=== PATIENT | male | born 1975 | race Caucasian/White ===

== ENCOUNTER 2016-07-25 03:53 | Observation (INO) | payer OTHER ==
[2016-07-25] MEDS ORDERED: ONDANSETRON 4 MG/2 ML VIAL IVP STA (04:13)
[2016-07-25] MEDS ORDERED: SODIUM CHLORIDE 0.9% 1,000 ML IV STA (04:13)
[2016-07-25] MEDS ORDERED: NITROGLYCERIN OINT 1 INCH/GM PACKET TOPICAL STA (04:13)
--- NOTE | 2016-07-25 04:26 | ED ---
Chest Pain HPI - General Chief Complaint: Chest Pain Stated Complaint: Chest Pain Time Seen by Provider: 07/25/16 04:01 Source: patient, EMS Mode of arrival: EMS Limitations: no limitations - History of Present Illness Initial Comments: Chest pain and shortness of breath since 11 PM that's about 5 hours ago also felt with the shoulders were heavy and he felt the legs were weak and chest pain is off-and-on pain gets worse with a deep breaths he wasn't exerting himself exactly where he was at work and his work does include walking. This point denies any headaches no neck stiffness no abdominal pain no frequency urgency dysuria pain has gotten better at this point actually is pain-free - Related Data Home Medications Medication Instructions Recorded Confirmed Fenofibrate Nanocrystallized 145 mg PO HS 04/14/14 07/25/16 [Tricor] Insulin NPL/Insulin Lispro 32 unit SQ DAILY 04/14/14 07/25/16 [humaLOG Mix 75-25 Kwikpen] Insulin NPL/Insulin Lispro 42 unit SQ HS 04/14/14 07/25/16 [humaLOG Mix 75-25 Kwikpen] Lipase/Protease/Amylase [Creon Dr 1 cap PO AC-BID 04/30/14 07/25/16 6,000 Units Capsule] Losartan Potassium [Cozaar] 100 mg PO DAILY 12/14/14 07/25/16 Aspirin/Acetaminophen/Caffeine 4 tab PO TID PRN 07/27/15 07/25/16 [Excedrin Extra Strength Caplet] Allergies Allergy/AdvReac Type Severity Reaction Status Date / Time shellfish derived Allergy Severe Anaphylaxis Verified 03/08/16 09:59 hydrocodone bitartrate AdvReac Rash/Hives Verified 03/08/16 09:59 [From [place]] Review of Systems ROS Statement: Those systems with pertinent positive or pertinent negative responses have been documented in the HPI. ROS Other: All systems not noted in ROS Statement are negative. EKG Findings - EKG Comments: EKG Findings:: EKG was normal sinus rhythm medical rate is 80 SC interval is 152 QRS duration is 88 QT/QTc is 392/4 5250 mL EKG showed some ST depression in leads [address] elevation or ST depression noticed in any other leads Past Medical History Past Medical History: Diabetes Mellitus, Hyperlipidemia, Hypertension Additional Past Medical History / Comment(s): pancreatitis, diverticulitis, migraines, high triglycerides; patient states he has a stricture in the esophagus that prevents him from swallowing large amounts at a time History of Any Multi-Drug Resistant Organisms: None Reported Past Surgical History: No Surgical Hx Reported Additional Past Surgical History / Comment(s): FAILED ATTEMPT AT EGD DUE INABILTY TO PASS SCOPE. COLONSCOPY 4 years ago- CLEAR. Past Anesthesia/Blood Transfusion Reactions: No Reported Reaction Past Psychological History: No Psychological Hx Reported Smoking Status: Current every day smoker Past Alcohol Use History: None Reported Additional Past Alcohol Use History / Comment(s): STARTED SMOKING AT AGE 11, SMOKED 1PPD. AGE 20 WAS HEAVY DRINKER X4 YEARS THEN QUIT. Past Drug Use History: None Reported Additional Drug Use History / Comment(s): TEENAGER SMOKED MARIJUANA NONE NOW. - Past Family History Father Family Medical History: Cancer, Diabetes Mellitus, Hyperlipidemia, Hypertension , Myocardial Infarction ([place]) Additional Family Medical History / Comment(s): SMOKER- HAS CANCER OF LARNYX, AT AGE 58 Mother Family Medical History: Diabetes Mellitus, Dialysis, Hyperlipidemia, Hypertension, Renal Disease General Exam - General Exam Comments Initial Comments: General: The patient is awake and alert, in no distress, and does not appear acutely ill. He looks pale and tired, GCS is 15 Skin: Skin is warm and dry and no rashes or lesions are noted. Eye: Pupils are equal, round and reactive to light, extra-ocular movements are intact; there is normal conjunctiva bilaterally. Ears, nose, mouth and throat: There are moist mucous membranes and no oral lesions. Neck: The neck is supple, there is no tenderness or JVD. Cardiovascular: There is a regular rate and rhythm. No murmur, rub or gallop is appreciated. Respiratory: To auscultation bilateral, exam is consistent with a moderate COPD Gastrointestinal: Soft, non-distended, non-tender abdomen without masses or organomegaly noted. There is no rebound or guarding present. Bowel sounds are unremarkable. Back: There is no tenderness to palpation in the midline. There is no obvious deformity. Musculoskeletal: Normal ROM, no tenderness, There is no pedal edema. There is no calf tenderness or swelling. No cords were appreciated. Neurological: CN II-XII intact, Cranial nerves III through XII are intact. There are no obvious motor or sensory deficits. Coordination appears grossly intact. Speech is normal. Psychiatric: Cooperative, appropriate mood & affect, normal judgment. Limitations: no limitations Course Vital Signs 07/25/16 07/25/16 07/25/16 03:55 04:01 04:30 Temperature 98.4 F Pulse Rate 79 76 68 Respiratory 18 16 16 Rate Blood Pressure 136/85 146/80 144/81 O2 Sat by Pulse 99 99 99 Oximetry 07/25/16 07/25/16 06:00 07:00 Temperature Pulse Rate 67 76 Respiratory 16 16 Rate Blood Pressure 129/81 136/68 O2 Sat by Pulse 99 97 Oximetry Vision was reassessed at 7:15, his CBC, his d-dimer, troponin, compressive metabolic panel were all negative chest x-ray shows some lung congestion and his CO2 was slightly low 19, these were on explained to the patient patient's chest pain has resolved but considering his risk factors he would need to come in and he agrees with that and now leg get older Dr. Larose and will consult cardiology though his pain resolved after he had a nitro and aspirin or heparinize him a considering he has smoked for greater than 20 years Disposition Clinical Impression: Chest pain Disposition: ADMITTED IP TO THIS [facility] Condition: Good
[2016-07-25 04:33] LABS: Basophils # (A) 0.1 k/uL (0-0.2); Basophils % (A) 1 %; CH 30.7; CHCM 35.8; Eosinophils # (A) 0.6 k/uL (0-0.7); Eosinophils % (A) 7 %; HCT 38.8 % (39.0-53.0); HDW 3.02; HGB 14.2 gm/dL (13.0-17.5); Luc # (Auto) 0.35; Luc % (Auto) 4; Lymphocytes # (A) 2.7 k/uL (1.0-4.8); Lymphocytes % (A) 29 %; MCH 31.5 pg (25.0-35.0); MCHC 36.6 g/dL (31.0-37.0); MCV 86.1 fL (80.0-100.0); Mean Platelet Volume 7.2; Monocytes # (A) 0.3 k/uL (0-1.0); Monocytes % (A) 3 %; Neutrophils # (A) 5.4 k/uL (1.3-7.7); Neutrophils % (A) 57 %; RBC 4.51 m/uL (4.30-5.90); RDW 13.7 % (11.5-15.5); WBC 9.5 k/uL (3.8-10.6); WBC (Perox) 9.95
[2016-07-25 04:44] LABS: ALT 26 U/L (21-72); AST 19 U/L (17-59); Alkaline Phosphatase 76 U/L (38-126); Amylase 82 U/L (30-110); Anion Gap 11 mmol/L; Blood Urea Nitrogen 11 mg/dL (9-20); Calcium 9.1 mg/dL (8.4-10.2); Carbon Dioxide 19 mmol/L (22-30); Chloride 110 mmol/L (98-107); Glucose 175 mg/dL (74-99); Magnesium 1.5 mg/dL (1.6-2.3); Non-African American GFR(MDRD) >60 (>60 ml/min/1.73 sqM); Sodium 140 mmol/L (137-145); Total Bilirubin 0.4 mg/dL (0.2-1.3); Total Protein 6.8 g/dL (6.3-8.2)
--- NOTE | 2016-07-25 04:52 | XR ---
Exam: XR CXR 2 VIEWS History: Chest pain. Comparison: 08/21/15. Technique: 2 views. Findings: No focal consolidation or significant effusion. There is mild prominence of the pulmonary vessels bilaterally. Heart shadow is top normal in transverse dimension. Impression: No consolidation or effusion. Suggestion of mild volume overload/congestion.
[2016-07-25 05:00] LABS: Partial Thromboplastin Time 23.9 sec (22.0-30.0); Prothrombin Time 9.9 sec (9.0-12.0)
[2016-07-25 05:15] LABS: Creatine Kinase 102 U/L (55-170)
[2016-07-25 05:27] LABS: Creatine Kinase MB 0.7 ng/mL (0.0-2.4); Troponin I <0.012 ng/mL (0.000-0.034)
[2016-07-25] MEDS ORDERED: HEPARIN SODIUM,PORCINE 5,000 UNIT/ML 1 ML VIAL IV ONE (07:38)
[2016-07-25] MEDS ORDERED: NITROGLYCERIN SL TABS 0.4 MG TAB SUBLINGUAL PRN (07:38)
[2016-07-25] MEDS ORDERED: ASPIRIN-ACET-CAFF 250-250-65MG 1 EACH TAB PO PRN (07:43)
[2016-07-25] MEDS ORDERED: HEPARIN SODIUM,PORCINE/D5W PMX 25,000 UNIT in DEXTROSE/WATER 1 500ML.BAG IV SCH (07:45)
[2016-07-25 07:57] VITALS: RESP 18
[2016-07-25] MEDS ORDERED: LOSARTAN 50 MG TAB PO SCH (09:00)
[2016-07-25] MEDS ORDERED: INSULIN NPL/INSULIN LISPRO 100 UNIT/ML 10 ML VIAL (Humalog 75/25) SQ SCH ×2 (09:00→21:00)
[2016-07-25 10:19] LABS: Creatine Kinase 81 U/L (55-170)
[2016-07-25 10:32] LABS: Creatine Kinase MB 0.8 ng/mL (0.0-2.4); Troponin I <0.012 ng/mL (0.000-0.034)
[2016-07-25 11:37] VITALS: BP 127/85; PULSE 70; TEMP 97.7
--- NOTE | 2016-07-25 11:59 | CONS ---
DATE OF CONSULTATION: REASON FOR CONSULTATION: Cardiac evaluation and treatment. HISTORY OF PRESENT ILLNESS: Mr. Luigi Leon is a poor historian and works midnights, that may be possible that patient is sleeping unable to get information: Patient had an episode of high back, high thoracic and low thoracic and lumbar pain, lasted for several hours and subsided then around 11 p.m. started having pain in the chest, heaviness and described a shooting pain on and off while he was at work and without getting any worse with exertion. Patient is reasonably active, but patient is a diabetic and denied any classical anginal symptoms other than atypical chest pains. Patient is a diabetic and has been taking insulin for last 2-1/2 years. Patient is also a heavy smoker, started smoking at 11 and continues to smoke 1 pack of cigarettes a day, quit drinking 4 years ago. He used to drink heavy before that. Patient has a girlfriend but not . Troponin x2 are negative. EKGs within normal limits. D-dimer is within normal limits. Patient's medications prior to admission include fenofibrate 145 mg p.o. daily, insulin lispro 32 units subcu daily, insulin lispro 42 units at bedtime, lipase 1 capsule a.c. b.i.d., losartan 100 mg p.o. daily, aspirin ( ), aspirin with acetaminophen, Excedrin, 4 tablets t.i.d. p.r.n. Patient is allergic to SHELL FISH, HYDROCODONE BITARTRATE, NORCO. REVIEW OF SYSTEMS: Essentially unremarkable other than what is stated in the presenting illness. History of diabetes. History of hyperlipidemia, hypertension. History of pancreatitis. History of esophageal stricture with difficulties in swallowing large amounts at one time. Difficulties in passing a scope in the past. History of as a teenager might have used marijuana, not using any marijuana now. Family history of coronary artery disease. Review of systems is essentially unremarkable other than what is stated in the presenting illness. Physical examination reveals vital signs are stable with a pulse rate of 67 beats per minute and regular, blood pressure 129/81, respirations of 16. HEAD: Normocephalic. NECK: Neck is supple. No JVD. CARDIAC EXAMINATION: S1 and S2. Lungs are clinically to auscultation and percussion other than scattered rhonchi. ABDOMEN: Soft, no organomegaly. Active bowel sounds. EXTREMITIES: Fair peripheral pulses. No pedal edema. RAG SORTER EXAMINATION: Grossly within normal limits. EKG revealed normal sinus rhythm, normal ST-T waves. Troponin x2 are negative. ASSESSMENT: 1. Atypical chest pain, rule out underlying ischemic heart disease with strong family history of coronary artery disease. 2. Current smoker. 3. Hypertension. 4. Hyperlipidemia. 5. Diabetes mellitus. RECOMMENDATIONS: Proceed with a stress echocardiogram. If normal, patient may be able to go home with nitroglycerin prescription and follow up with cardiology and primary care physician. If the patient's stress echo is abnormal, will proceed with cardiac catheterization for definitive diagnosis and treatment.
[2016-07-25 12:01] LABS: Glucose,Whole Blood 114 mg/dL (75-99)
[2016-07-25] MEDS ORDERED: INSULIN LISPRO (humaLOG) 300 UNIT/3 ML VIAL SQ SCH (12:30)
[2016-07-25 13:16] LABS: Hemoglobin A1C 10.3 % (4.2-6.1)
--- NOTE | 2016-07-25 13:43 | ECHOS ---
DATE OF SERVICE: 07/25/2016 AGE: 41Y SEX: M HT: 71 WT: 212 lbs. Protocol Moisés: Others: Stage: 3 Dur. of Exercise: 9:00 *Heart Rate Blood Pressure *Rest: 84 Rest: 131/98 * *Max. Achieved: 148 Maximum BP: 208/53 85% PMHR: 151 100% PMHR: 178 *METS: INDICATIONS: The patient is complaining of atypical chest pain. Known patient of diabetes, hypertension, hypercholesterolemia, smoking and on insulin. Patient's symptoms were atypical and enzymes have been resting. MEDICATIONS: Resting ECG shows sinus rhythm, rate of 84 beats per minute, [place] interval 0.16, poor R wave progression in anteroseptal leads. Utilizing a standard Moisés protocol, a symptom limited treadmill test was performed. Patient exercised for total of 9 minutes, attained a peak heart rate of 148 beats per minute, which is approximately 33% predicted maximum heart rate without any chest pain or pressure. Exercise stress test showed RST segment deviations indicative of ischemia. Exercise stress test was terminated because of fatigue and shortness of breath. Baseline images show normal thickening and contractility. Postexercise images show improved contractility and thickening. Unfortunately a couple of beats short of his target, which was 151 and got up to 148, but I do not see any hypokinetic or dyskinetic segments, consistent with underlying ischemic heart disease or underlying ischemia. May consider repeating the test in different modality, nonwalking stress test at a later time as you see fit clinically. Patient should be able to go home on current medications with nitroglycerin prescription and follow with concrete curer and primary care physician.
[2016-07-25 15:03] VITALS: BMI 29.6
[2016-07-25] MEDS ORDERED: LIPASE 5,000/PROTEASE 17,000/AMYLASE 27,0000 PO SCH (17:30)
[2016-07-25] MEDS ORDERED: FENOFIBRATE 160 MG TAB PO SCH (21:00)
[2016-07-26] MEDS ORDERED: ASPIRIN 325 MG TAB PO SCH (09:00)
--- NOTE | 2016-10-09 10:48 | P.HPIM ---
History of Present Illness H&P Date: 07/25/16 Chief Complaint: chest pressure. This is a history and physical and 41-year-old white male with known history of insulin dependent diabetes and element of chronic hepatitis C he still continues to have tobacco abuse. He is admitted secondary to chest pain. Initial enzymatic workup is negative. There are no acute EKG changes but he is admitted for appropriate observation period family history is otherwise noted. He denies any significant illicit substance abuse or ethanol use. Review of Systems Constitutional: Denies chills, Denies fever Eyes: denies blurred vision, denies pain Cardiovascular: Reports chest pain Respiratory: Denies cough Gastrointestinal: Denies abdominal pain, Denies diarrhea, Denies nausea, Denies vomiting Musculoskeletal: Denies myalgias Past Medical History Past Medical History: Diabetes Mellitus, Hyperlipidemia, Hypertension Additional Past Medical History / Comment(s): pancreatitis, diverticulitis, migraines, high triglycerides; patient states he has a stricture in the esophagus that prevents him from swallowing large amounts at a time History of Any Multi-Drug Resistant Organisms: None Reported Past Surgical History: No Surgical Hx Reported Additional Past Surgical History / Comment(s): FAILED ATTEMPT AT EGD DUE INABILTY TO PASS SCOPE. COLONSCOPY 4 years ago- CLEAR. Past Anesthesia/Blood Transfusion Reactions: No Reported Reaction Past Psychological History: No Psychological Hx Reported Smoking Status: Current every day smoker Past Alcohol Use History: None Reported Additional Past Alcohol Use History / Comment(s): STARTED SMOKING AT AGE 11, SMOKED 1PPD. AGE 20 WAS HEAVY DRINKER X4 YEARS THEN QUIT. Past Drug Use History: None Reported Additional Drug Use History / Comment(s): TEENAGER SMOKED MARIJUANA NONE NOW. - Past Family History Father Family Medical History: Cancer, Diabetes Mellitus, Hyperlipidemia, Hypertension , Myocardial Infarction ([place]) Additional Family Medical History / Comment(s): SMOKER- HAS CANCER OF LARNYX, AT AGE 58 Mother Family Medical History: Diabetes Mellitus, Dialysis, Hyperlipidemia, Hypertension, Renal Disease Medications and Allergies Home Medications Medication Instructions Recorded Confirmed Type Fenofibrate Nanocrystallized 145 mg PO DAILY@0800 04/14/14 07/25/16 History [Tricor] Insulin NPL/Insulin Lispro 40 unit SQ DAILY@0730 04/14/14 07/25/16 History [humaLOG Mix 75-25 Kwikpen] Insulin NPL/Insulin Lispro 50 unit SQ DAILY@209904/14/14 07/25/16 History [humaLOG Mix 75-25 Kwikpen] Lipase/Protease/Amylase [Creon Dr 1 cap PO AC-TID 04/30/14 07/25/16 History 6,000 Units Capsule] Losartan Potassium [Cozaar] 100 mg PO DAILY@209912/14/14 07/25/16 History Aspirin/Acetaminophen/Caffeine 4 tab PO TID PRN 07/27/15 07/25/16 History [Excedrin Extra Strength Caplet] Allergies Allergy/AdvReac Type Severity Reaction Status Date / Time shellfish derived Allergy Severe Anaphylaxis Verified 03/08/16 09:59 hydrocodone bitartrate AdvReac Rash/Hives Verified 03/08/16 09:59 [From [place]] Physical Exam Vitals: Vital Signs Temp Pulse Resp BP Pulse Ox 07/25/16 07:55 97.8 F 68 18 112/72 97 - EENT Eyes: EOMI - Respiratory Respiratory: bilateral: diminished - Cardiovascular Rhythm: regular Heart sounds: normal: S1, S2 - Gastrointestinal General gastrointestinal: soft, no tenderness - Neurologic Neurologic: CNII-XII intact - Musculoskeletal Musculoskeletal: gait normal - Psychiatric Psychiatric: A&O x's 3, appropriate affect Results CBC & Chem 7: 07/25/16 04:06 07/25/16 04:06 Assessment and Plan (1) Tobacco abuse Status: Chronic (2) Chest pain Status: Acute (3) Chronic pancreatitis Status: Acute (4) DM w/o complication type II Status: Chronic (5) Hyperlipidemia Status: Chronic Plan: We'll go ahead and place on sliding scale. Reconcile medications. Consult cardiology for appropriate evaluation. Question need for stress testing given his appropriate risk factors Smoking cessation discussed again with the patient. see orders otherwise. Rule out myocardial infarction. Time with Patient: Less than 30
--- NOTE | 2016-10-09 10:50 | P.DS ---
Providers Date of admission: 07/25/16 07:43 Attending physician: Shahid Larose Consults: 07/25/16 07:38 Consult Physician Urgent Consulting Provider: Elliott Saini Consult Reason/Comments: Chest pain Do you want consulting provider notified?: Yes Primary care physician: Shahid Larose - Discharge Diagnosis(es) (1) Tobacco abuse Status: Chronic (2) Chest pain Status: Acute (3) Chronic pancreatitis Status: Acute (4) DM w/o complication type II Status: Chronic (5) Hyperlipidemia Status: Chronic Hospital Course: This is a discharge summary 41-year-old white male with known history of chronic idiopathic pancreatitis who came in with significant chest pressure and chest pain. Because of his tobacco abuse and history of diabetes, he was appropriately admitted for evaluation and treatment. Cardiology evaluated the patient with me and did appropriate testing. Myocardial infarction was ruled out, and he was discharged after passing all tests. The patient was discharged in stable condition tolerating diet and told to follow-up with me in 3 days. We had a long discussion regarding tobacco cessation. The patient is discharged in stable condition as stated above. Patient Condition at Discharge: Good Plan - Discharge Summary New Discharge Prescriptions: No Action Insulin Lispro Protamin/Lispro [humaLOG Mix 75-25 Kwikpen] 40 unit SQ DAILY@ 0730 Fenofibrate Nanocrystallized [Tricor] 145 mg PO DAILY@0800 Insulin Lispro Protamin/Lispro [humaLOG Mix 75-25 Kwikpen] 50 unit SQ DAILY@ 2100 Lipase/Protease/Amylase [Kaleb Pettit 6,000 Units Capsule] 1 cap PO AC-TID Losartan Potassium [Cozaar] 100 mg PO DAILY@2100 Aspirin/Acetaminophen/Caffeine [Excedrin Extra Strength Caplet] 4 tab PO TID PRN PRN Reason: Pain Nitroglycerin Sl Tabs [Nitrostat] 0.4 mg SUBLINGUAL Q5M PRN PRN Reason: Chest Pain Discharge Medication List Fenofibrate Nanocrystallized [Tricor] 145 mg PO DAILY@0800 04/14/14 [History] Insulin Lispro Protamin/Lispro [humaLOG Mix 75-25 Kwikpen] 40 unit SQ DAILY@ 0730 04/14/14 [History] Insulin Lispro Protamin/Lispro [humaLOG Mix 75-25 Kwikpen] 50 unit SQ DAILY@ 2100 04/14/14 [History] Lipase/Protease/Amylase [Kaleb Pettit 6,000 Units Capsule] 1 cap PO AC-TID 04/30/14 [History] Losartan Potassium [Cozaar] 100 mg PO DAILY@2100 12/14/14 [History] Aspirin/Acetaminophen/Caffeine [Excedrin Extra Strength Caplet] 4 tab PO TID PRN 07/27/15 [History] Nitroglycerin Sl Tabs [Nitrostat] 0.4 mg SUBLINGUAL Q5M PRN 07/25/16 [History] Follow up Appointment(s)/Referral(s): Shahid Larose MD [Primary Care Provider] - 1 Week Mei Schwarz MD [STAFF PHYSICIAN] - 1 Week Patient Instructions/Handouts: Angina (GEN) Discharge Disposition: HOME SELF-CARE
== END 2016-07-25 16:00 | disposition home or self-care (01) ==
LOC: EC 03:53 → 3OBS 07:43
PROVIDERS: ADMIT Family Medicine; ATTEND Family Medicine
DX: R07.89 Other chest pain (principal); R06.02 Shortness of breath; R53.1 Weakness; M54.6 Pain in thoracic spine; I10 Essential (primary) hypertension; F17.210 Nicotine dependence, cigarettes, uncomplicated; E78.5 Hyperlipidemia, unspecified; E11.9 Type 2 diabetes mellitus without complications; G43.909 Migraine, unspecified, not intractable, without status migrainosus; K85.90 Acute pancreatitis without necrosis or infection, unspecified; K57.92 Diverticulitis of intestine, part unspecified, without perforation or abscess without bleeding; E78.1 Pure hyperglyceridemia; B18.2 Chronic viral hepatitis C; Z82.49 Family history of ischemic heart disease and other diseases of the circulatory system; Z91.013 Allergy to seafood; Z88.5 Allergy status to narcotic agent; Z79.899 Other long term (current) drug therapy; Z79.4 Long term (current) use of insulin; K86.1 Other chronic pancreatitis
CPT/HCPCS: 96366; 96376; 96361; 96365; 96375; 99285; 36415; 93005; 93017; 93350; 85379; 83880; 80053; 82150; 83036; 82550; 82553; 83690; 83735; 84484; 85025; 85610; 85730; 71020; G0378; J1644 ×2; J2405

== ENCOUNTER 2016-11-24 16:35 | Emergency (ER) | payer OTHER ==
[2016-11-24] MEDS ORDERED: ONDANSETRON 4 MG/2 ML VIAL IVP STA (17:43)
[2016-11-24] MEDS ORDERED: FAMOTIDINE 20 MG/2 ML VIAL IV STA (17:43)
[2016-11-24] MEDS ORDERED: SODIUM CHLORIDE 0.9% 1,000 ML IV STA ×2 (17:43→20:25)
--- NOTE | 2016-11-24 17:45 | ED ---
General Adult HPI - General Chief complaint: Abdominal Pain Stated complaint: Abd Pain Time Seen by Provider: 11/24/16 17:39 Source: patient, RN notes reviewed Mode of arrival: ambulatory Limitations: no limitations - History of Present Illness Initial comments: 41-year-old male presents to the emergency department with a chief complaint of abdominal pain. Patient states this started today. Patient states is in the center of his abdomen. Patient states anywhere he lays he has the pain. Patient states is moderate. Patient denies any nausea or vomiting with the pain. Patient states it feels much like when he had pancreatitis in the past. Patient does admit to history of diabetes. Patient states he has not had his gallbladder removed. Patient states he hasn't had any fever chills with this. Patient was concerned due to his pains without that he should be evaluated. Patient denies any recent fever, chills, shortness of breath, chest pain, back pain, nausea vomiting, numbness or tingling, dysuria or hematuria, constipation or diarrhea, headaches or visual changes, or any other current symptoms. - Related Data Home Medications Medication Instructions Recorded Confirmed Fenofibrate Nanocrystallized 145 mg PO HS 04/14/14 11/24/16 [Tricor] Insulin Lispro Protamin/Lispro 30 unit SQ DAILY 04/14/14 11/24/16 [humaLOG Mix 75-25 Kwikpen] Insulin Lispro Protamin/Lispro 40 unit SQ HS 04/14/14 11/24/16 [humaLOG Mix 75-25 Kwikpen] Lipase/Protease/Amylase [Kaleb Pettit 1 cap PO AC-BID 04/30/14 11/24/16 6,000 Units Capsule] Losartan Potassium [Cozaar] 100 mg PO DAILY 12/14/14 11/24/16 Nitroglycerin Sl Tabs [Nitrostat] 0.4 mg SUBLINGUAL Q5M PRN 07/25/16 11/24/16 Allergies Allergy/AdvReac Type Severity Reaction Status Date / Time shellfish derived Allergy Severe Rash/Hives Verified 11/24/16 17:57 hydrocodone bitartrate AdvReac WEAKNESS Verified 11/24/16 17:57 [From [place]] Review of Systems ROS Statement: Those systems with pertinent positive or pertinent negative responses have been documented in the HPI. ROS Other: All systems not noted in ROS Statement are negative. Past Medical History Past Medical History: Diabetes Mellitus, Hyperlipidemia, Hypertension Additional Past Medical History / Comment(s): pancreatitis, diverticulitis, migraines, high triglycerides; patient states he has a stricture in the esophagus that prevents him from swallowing large amounts at a time History of Any Multi-Drug Resistant Organisms: None Reported Past Surgical History: No Surgical Hx Reported Additional Past Surgical History / Comment(s): FAILED ATTEMPT AT EGD DUE INABILTY TO PASS SCOPE. COLONSCOPY 4 years ago- CLEAR. Past Anesthesia/Blood Transfusion Reactions: No Reported Reaction Past Psychological History: No Psychological Hx Reported Smoking Status: Current every day smoker Past Alcohol Use History: None Reported Past Drug Use History: None Reported - Past Family History Father Family Medical History: Cancer, Diabetes Mellitus, Hyperlipidemia, Hypertension , Myocardial Infarction ([place]) Additional Family Medical History / Comment(s): SMOKER- HAS CANCER OF LARNYX, AT AGE 58 Mother Family Medical History: Diabetes Mellitus, Dialysis, Hyperlipidemia, Hypertension, Renal Disease General Exam - General Exam Comments Initial Comments: General: The patient is awake and alert, in no distress, and does not appear acutely ill. Eye: Pupils are equal, round and reactive to light, extra-ocular movements are intact; there is normal conjunctiva bilaterally. No signs of icterus. Ears, nose, mouth and throat: There are moist mucous membranes. Neck: The neck is supple, there is no tenderness. Cardiovascular: There is a regular rate and rhythm. No murmur, rub or gallop is appreciated. Respiratory: Lungs are clear to auscultation, respirations are non-labored, breath sounds are equal. No wheezes, stridor, rales, or rhonchi. Gastrointestinal: Soft, non-distended, epigastric tenderness of the abdomen without masses or organomegaly noted. There is no rebound or guarding present. No CVA tenderness. Bowel sounds are unremarkable. Back: There is no tenderness to palpation in the midline. There is no obvious deformity. No rashes noted. Musculoskeletal: Normal ROM, no tenderness, There is no pedal edema. There is no calf tenderness or swelling. Sensation intact. Pulses equal bilaterally 2+. Neurological: CN II-XII intact, There are no obvious motor or sensory deficits. Coordination appears grossly intact. Speech is normal. Skin: Skin is warm and dry and no rashes or lesions are noted. Psychiatric: Cooperative, appropriate mood & affect, normal judgment. Limitations: no limitations Course Vital Signs 11/24/16 11/24/16 17:09 19:30 Temperature 97.8 F 98.5 F Pulse Rate 89 71 Respiratory 18 17 Rate Blood Pressure 154/88 147/97 O2 Sat by Pulse 99 97 Oximetry Medical Decision Making - Medical Decision Making 41-year-old male presents to the emergency Department chief complaint of epigastric abdominal pain. This time CT and lab work was reviewed. Patient does appear to increase tenderness however his lipase is mildly elevated. This time he is feeling better and he is not vomiting. At this time he was offered admission into the hospital but he states he would like to go home. We'll give him pain medication nausea medication for home. We discussed nothing by mouth tonight and tomorrow he'll start a clear liquid diet. We discussed return parameters that this could worsen and he may need to be seen back hearing to get sicker. The patient stated that he understood and is here with the plan. This and we will discharged home. - Lab Data Result diagrams: 11/24/16 18:15 11/24/16 18:15 Lab Results 11/24/16 11/24/16 Range/Units 18:15 18:15 WBC 9.5 (3.8-10.6) k/uL RBC 4.62 (4.30-5.90) m/uL Hgb 14.9 (13.0-17.5) gm/dL Hct 39.9 (39.0-53.0) % MCV 86.4 (80.0-100.0) fL MCH 32.3 (25.0-35.0) pg MCHC 37.4 H (31.0-37.0) g/dL RDW 14.1 (11.5-15.5) % Plt Count 238 (150-450) k/uL Neutrophils % 69 % Lymphocytes % 22 % Monocytes % 3 % Eosinophils % 4 % Basophils % 1 % Neutrophils # 6.5 (1.3-7.7) k/uL Lymphocytes # 2.1 (1.0-4.8) k/uL Monocytes # 0.3 (0-1.0) k/uL Eosinophils # 0.4 (0-0.7) k/uL Basophils # 0.1 (0-0.2) k/uL Sodium 134 L (137-145) mmol/L Potassium 4.5 (3.5-5.1) mmol/L Chloride 105 (98-107) mmol/L Carbon Dioxide 15 L (22-30) mmol/L Anion Gap 14 mmol/L BUN 10 (9-20) mg/dL Creatinine 0.72 (0.66-1.25) mg/dL Est GFR (MDRD) Af Amer >60 (>60 ml/min/1.73 sqM) Est GFR (MDRD) Non-Af >60 (>60 ml/min/1.73 sqM) Glucose 237 H (74-99) mg/dL Calcium 9.0 (8.4-10.2) mg/dL Total Bilirubin 0.5 (0.2-1.3) mg/dL AST 14 L (17-59) U/L ALT 29 (21-72) U/L Alkaline Phosphatase 80 (38-126) U/L Total Protein 7.2 (6.3-8.2) g/dL Albumin 4.0 (3.5-5.0) g/dL Amylase 135 H (30-110) U/L Lipase 393 H (23-300) U/L - Radiology Data Radiology results: report reviewed, image reviewed Disposition Clinical Impression: Pancreatitis Disposition: HOME SELF-CARE Condition: Stable Instructions: Pancreatitis (ED) Additional Instructions: Please use medication as discussed. Please follow up with family doctor if symptoms have not improved over the next two days. Please return to the emergency room if your symptoms increase or worsen or for any other concerns. Referrals: Shahid Larose MD [Primary Care Provider] - 1-2 days Time of Disposition: 21:32
[2016-11-24 18:26] LABS: Basophils # (A) 0.1 k/uL (0-0.2); Basophils % (A) 1 %; CH 31.3; CHCM 36.4; Eosinophils # (A) 0.4 k/uL (0-0.7); Eosinophils % (A) 4 %; HCT 39.9 % (39.0-53.0); HDW 2.91; HGB 14.9 gm/dL (13.0-17.5); Luc # (Auto) 0.09; Luc % (Auto) 1; Lymphocytes # (A) 2.1 k/uL (1.0-4.8); Lymphocytes % (A) 22 %; MCH 32.3 pg (25.0-35.0); MCHC 37.4 g/dL (31.0-37.0); MCV 86.4 fL (80.0-100.0); Mean Platelet Volume 6.8; Monocytes # (A) 0.3 k/uL (0-1.0); Monocytes % (A) 3 %; Neutrophils # (A) 6.5 k/uL (1.3-7.7); Neutrophils % (A) 69 %; RBC 4.62 m/uL (4.30-5.90); RDW 14.1 % (11.5-15.5); WBC 9.5 k/uL (3.8-10.6); WBC (Perox) 8.95
[2016-11-24 18:38] LABS: ALT 29 U/L (21-72); AST 14 U/L (17-59); Alkaline Phosphatase 80 U/L (38-126); Amylase 135 U/L (30-110); Anion Gap 14 mmol/L; Blood Urea Nitrogen 10 mg/dL (9-20); Carbon Dioxide 15 mmol/L (22-30); Chloride 105 mmol/L (98-107); Glucose 237 mg/dL (74-99); Non-African American GFR(MDRD) >60 (>60 ml/min/1.73 sqM); Potassium 4.5 mmol/L (3.5-5.1); Sodium 134 mmol/L (137-145); Total Bilirubin 0.5 mg/dL (0.2-1.3); Total Protein 7.2 g/dL (6.3-8.2)
[2016-11-24] MEDS ORDERED: RX INFO: IV CONTRAST WAS GIVEN 1 EACH MISC MISCELLANE PRN (18:45)
--- NOTE | 2016-11-24 18:47 | XR ---
EXAMINATION TYPE: XR abdomen 2V DATE OF EXAM: 11/24/2016 COMPARISON: 01/23/2016 HISTORY: Abdominal pain TECHNIQUE: 3 views FINDINGS: There is no sign of intestinal obstruction or pneumoperitoneum. Fecal pattern is normal. Th ere is no evidence of a mass. There are no pathologic calcifications over the kidneys. Lung bases are clear. IMPRESSION: Nonacute abdomen. No change.
--- NOTE | 2016-11-24 19:56 | CT ---
EXAMINATION TYPE: CT abdomen pelvis w con DATE OF EXAM: 11/24/2016 COMPARISON: 08/21/2015 HISTORY: Patient complains of generalized upper abdominal pain with history of prior pancreatitis. CT DLP: 970 mGycm Automated exposure control for dose reduction was used. TECHNIQUE: Helical acquisition of images was performed from the lung bases through the pelvis. CONTRAST: Performed without Oral Contrast and with IV Contrast, patient injected with 100 mL of Omnipaque 300. FINDINGS: Lung bases are clear of consolidation. There is no pleural effusion. Liver spleen appear normal. There is a 2 cm cyst in the mid pancreas. Bile ducts are not dilated. Gal lbladder appears normal. There is mild fat stranding around the pancreatic head. There is no adrenal mass. Kidneys show satisfactory contrast opacification. There is no hydronephrosi s. There is no retroperitoneal adenopathy. There is no ascites. There are multiple diverticula in the si gmoid colon. Bladder distends smoothly. Appendix appears normal.: IMPRESSION: STABLE PANCREATIC CYST. INFLAMMATORY CHANGES AROUND THE PANCREATIC HEAD ARE CONSISTENT WITH PANCREATI TIS AND ARE INCREASED SLIGHTLY COMPARED TO LAST EXAM.
[2016-11-24] MEDS ORDERED: HYDROmorphone 1 MG/ML 1 ML SYRINGE IVP STA ×2 (20:25→21:31)
[2016-11-24] MEDS ORDERED: traMADol 50 MG STARTER PACK 3 TAB BTL PO STA (21:48)
[2016-11-24] MEDS ORDERED: ONDANSETRON 4 MG ODT STARTER PACK 2 TAB BTL PO STA (21:48)
[2016-11-24] MEDS ORDERED: HYDROmorphone 1 MG/ML 1 ML SYRINGE IM STA (21:54)
[2016-11-24 22:05] VITALS: BP 135/80; PULSE 75; RESP 21; TEMP 98.1
== END 2016-11-24 22:05 | disposition home or self-care (01) ==
LOC: EC 16:35
DX: K85.90 Acute pancreatitis without necrosis or infection, unspecified (principal); E11.9 Type 2 diabetes mellitus without complications; E78.5 Hyperlipidemia, unspecified; I10 Essential (primary) hypertension; F17.200 Nicotine dependence, unspecified, uncomplicated; Z79.4 Long term (current) use of insulin; Z79.899 Other long term (current) drug therapy; Z88.5 Allergy status to narcotic agent; Z91.013 Allergy to seafood
CPT/HCPCS: 36415; 80053; 82150; 83690; 85025; 74020; 74177; 99284; 96374; 96375; 96361; 96372; J1170; Q9967; S0119

== ENCOUNTER 2017-08-05 08:06 | Observation (INO) | payer OTHER ==
[2017-08-05] MEDS ORDERED: ONDANSETRON 4 MG/2 ML VIAL IVP STA (08:24)
[2017-08-05] MEDS ORDERED: NITROGLYCERIN OINT 1 INCH/GM PACKET TOPICAL STA (08:24)
[2017-08-05] MEDS ORDERED: SODIUM CHLORIDE 0.9% 1,000 ML IV STA ×2 (08:24)
[2017-08-05] MEDS ORDERED: fentaNYL (PF) 50 MCG/ML 2 ML AMP IV ONE (08:26)
[2017-08-05 08:42] LABS: Basophils # (A) 0.1 k/uL (0-0.2); Basophils % (A) 1 %; Eosinophils # (A) 0.7 k/uL (0-0.7); Eosinophils % (A) 6 %; HCT 40.3 % (39.0-53.0); HGB 15.4 gm/dL (13.0-17.5); Lymphocytes # (A) 3.5 k/uL (1.0-4.8); Lymphocytes % (A) 28 %; MCH 31.5 pg (25.0-35.0); MCV 82.3 fL (80.0-100.0); Mean Platelet Volume 6.4; Monocytes # (A) 0.5 k/uL (0-1.0); Monocytes % (A) 4 %; Neutrophils # (A) 7.4 k/uL (1.3-7.7); Neutrophils % (A) 60 %; Platelet Count 247 k/uL (150-450); RDW 13.2 % (11.5-15.5); WBC 12.2 k/uL (3.8-10.6)
[2017-08-05 08:49] LABS: MCHC 38.3 g/dL (31.0-37.0)
[2017-08-05 08:54] LABS: ALT 19 U/L (21-72); AST 15 U/L (17-59); Alkaline Phosphatase 85 U/L (38-126); Amylase 93 U/L (30-110); Anion Gap 16 mmol/L; Blood Urea Nitrogen 11 mg/dL (9-20); Calcium 9.3 mg/dL (8.4-10.2); Carbon Dioxide 16 mmol/L (22-30); Chloride 107 mmol/L (98-107); Lipase 247 U/L (23-300); Magnesium 1.4 mg/dL (1.6-2.3); Sodium 139 mmol/L (137-145); Total Bilirubin 0.4 mg/dL (0.2-1.3); Total Protein 7.3 g/dL (6.3-8.2)
[2017-08-05 09:05] LABS: Glucose 183 mg/dL (74-99)
[2017-08-05 09:12] LABS: Creatine Kinase 131 U/L (55-170)
--- NOTE | 2017-08-05 09:19 | XR ---
EXAMINATION TYPE: XR chest 2V DATE OF EXAM: 08/05/2017 COMPARISON: 07/25/2016 TECHNIQUE: PA and lateral views submitted. HISTORY: Chest and shoulder pain FINDINGS: The lungs are clear and there is no pneumothorax, pleural effusion, or focal pneumonia. Arthropathy of the AC joints. Mild hypertrophic and degenerative change of the spine. No overt failure. IMPRESSION: 1. No acute process.
[2017-08-05 09:24] LABS: Creatine Kinase MB 1.3 ng/mL (0.0-2.4); Troponin I <0.012 ng/mL (0.000-0.034)
[2017-08-05 09:30] LABS: D-Dimer 0.23 mg/L FEU (<0.60); Partial Thromboplastin Time 23.5 sec (22.0-30.0)
--- NOTE | 2017-08-05 09:43 | ED ---
Chest Pain HPI - General Chief Complaint: Chest Pain Stated Complaint: chest pain Time Seen by Provider: 08/05/17 08:17 Source: patient Mode of arrival: ambulatory Limitations: no limitations - History of Present Illness Initial Comments: 42 years old gentleman history of recurrent pancreatitis hypertension and diabetes presents with left-sided chest pain pain is radiating down his left shoulder, it started 3 AM complaining about nausea no vomiting had some cold sweats and also complaining about some epigastric area pain. No headaches no neck stiffness no abdominal pain no frequency urgency dysuria no symptoms of TIA or CVA - Related Data Home Medications Medication Instructions Recorded Confirmed Fenofibrate Nanocrystallized 145 mg PO DAILY 04/14/14 08/05/17 [Tricor] Insulin Lispro Protamin/Lispro 30 unit SQ DAILY 04/14/14 08/05/17 [humaLOG Mix 75-25 Kwikpen] Insulin Lispro Protamin/Lispro 45 unit SQ HS 04/14/14 08/05/17 [humaLOG Mix 75-25 Kwikpen] Lipase/Protease/Amylase [Creon Dr 1 cap PO AC-TID 04/30/14 08/05/17 6,000 Units Capsule] Losartan Potassium [Cozaar] 100 mg PO HS 12/14/14 08/05/17 Allergies Allergy/AdvReac Type Severity Reaction Status Date / Time shellfish derived Allergy Severe Rash/Hives Verified 08/05/17 09:31 hydrocodone bitartrate Allergy Rash/Hives/ Verified 08/05/17 09:31 [From [place]] Weakness Review of Systems ROS Statement: Those systems with pertinent positive or pertinent negative responses have been documented in the HPI. ROS Other: All systems not noted in ROS Statement are negative. EKG Findings - EKG Comments: EKG Findings:: Him EKG is normal sinus rhythm medical rate is 86 MA interval is 158 QRS duration is 86 QT/QTc is 368/440 review of this EKG reveals T-wave inversion in lead 3 also noticed some noticed a very slight ST depression in aVF as well no ST elevation noticed in this EKG Past Medical History Past Medical History: Diabetes Mellitus, Hyperlipidemia, Hypertension Additional Past Medical History / Comment(s): pancreatitis, diverticulitis, migraines, high triglycerides; patient states he has a stricture in the esophagus that prevents him from swallowing large amounts at a time History of Any Multi-Drug Resistant Organisms: None Reported Past Surgical History: No Surgical Hx Reported Additional Past Surgical History / Comment(s): FAILED ATTEMPT AT EGD DUE INABILTY TO PASS SCOPE. COLONSCOPY 4 years ago- CLEAR. Past Anesthesia/Blood Transfusion Reactions: No Reported Reaction Past Psychological History: No Psychological Hx Reported Smoking Status: Current every day smoker Past Alcohol Use History: None Reported Past Drug Use History: None Reported - Past Family History Father Family Medical History: Cancer, Diabetes Mellitus, Hyperlipidemia, Hypertension , Myocardial Infarction ([place]) Additional Family Medical History / Comment(s): SMOKER- HAS CANCER OF LARNYX, AT AGE 58 Mother Family Medical History: Diabetes Mellitus, Dialysis, Hyperlipidemia, Hypertension, Renal Disease General Exam - General Exam Comments Initial Comments: General: The patient is in moderate distress because of the pain Skin: Skin is warm and dry and no rashes or lesions are noted. Eye: Pupils are equal, round and reactive to light, extra-ocular movements are intact; there is normal conjunctiva bilaterally. Ears, nose, mouth and throat: There are moist mucous membranes and no oral lesions. Neck: The neck is supple, there is no tenderness or JVD. Cardiovascular: There is a regular rate and rhythm. No murmur, rub or gallop is appreciated. Respiratory: To auscultation bilateral, no wheezing no rhonchi no distress respiratory grossman noticed Gastrointestinal: Slightly tender in epigastric area Back: There is no tenderness to palpation in the midline. There is no obvious deformity. Musculoskeletal: Normal ROM, no tenderness, There is no pedal edema. There is no calf tenderness or swelling. No cords were appreciated. Neurological: CN II-XII intact, Cranial nerves III through XII are intact. There are no obvious motor or sensory deficits. Coordination appears grossly intact. Speech is normal. Psychiatric: Cooperative, appropriate mood & affect, normal judgment. Limitations: no limitations Course Vital Signs 08/05/17 08/05/17 08/05/17 08:08 09:11 10:10 Temperature 98 F Pulse Rate 88 94 84 Respiratory 20 20 18 Rate Blood Pressure 176/107 175/101 152/90 O2 Sat by Pulse 98 94 L 97 Oximetry She was reassessed, d-dimer is unremarkable white count is 12.2 CO2 is 16 reflecting metabolic acidosis, and chest x-rays normal and so is the troponin and we will admit him for 3 sets of cardiac markers under Dr. Larose's service Dr. Larose is being told by Dr. Castano today and will allow consult cardiology as well as 3 sets of cardiac markers and some fluids Disposition Clinical Impression: Chest pain, Metabolic acidosis Disposition: ADMITTED IP TO THIS HOSP Condition: Good Referrals: Shahid Larose MD [Primary Care Provider] - 1-2 days
[2017-08-05] MEDS ORDERED: SODIUM CHLORIDE 0.9% 1,000 ML IV ONE (10:42)
[2017-08-05] MEDS ORDERED: NITROGLYCERIN SL TABS 0.4 MG TAB SUBLINGUAL PRN (10:44)
[2017-08-05 11:00] LABS: INR 0.9 (<1.2)
[2017-08-05 11:03] LABS: Prothrombin Time 9.4 sec (9.0-12.0)
[2017-08-05 12:01] LABS: Glucose,Whole Blood 161 mg/dL (75-99)
[2017-08-05] MEDS: SODIUM CHLORIDE 0.9% 1,000 ML IV SCH ×2 (12:01→20:37)
[2017-08-05] MEDS ORDERED: MORPHINE SULF 5MG/10ML VL IVP PRN (14:06)
--- NOTE | 2017-08-05 14:10 | P.CRDCN ---
History of Present Illness Consult date: 08/05/17 Requesting physician: Tani Vang Consult reason: chest pain Chief complaint: Abdominal pain and scapular pain History of present illness: This is a 42-year-old gentleman with history of diabetes, hypertension , hyperlipidemia, nicotine dependence, patient's smokes one and a half packs of cigarettes per day, he also used to be quite a heavy drinker, he quit drinking approximately 4-5 years ago after being told to have pancreatitis. He presents to the hospital on this occasion with symptoms that initially started as abdominal discomfort, he states that he felt as though his pancreatitis may have been flaring up. He works the night shift manager, and the symptoms started around 1:00 in the morning. Subsequent to that patient states that he had a discomfort in his scapula and shoulder blade area which radiated down his arms. He also states both of his legs went numb. He was concerned that it may be his heart, and for this reason he came to the emergency room for further evaluation. His blood pressure on arrival 176/107, heart rate in the 80s, 98% on room air. White blood cell count 12.2, hemoglobin 15.4, platelet count 247. D-dimer negative. Sodium 139, potassium 4.0, BUN 11, creatinine 0.6. Magnesium level I.4, AST 15, ALT 19, troponin 0.012. EKG on arrival here showed a normal sinus rhythm with no acute changes. Patient did undergo a stress echocardiographic study in July 2016 that was negative for any reversible ischemia. Past Medical History Past Medical History: Diabetes Mellitus, Hyperlipidemia, Hypertension Additional Past Medical History / Comment(s): IDDM type II, high triglycerides, chronic pancreatitis, diverticular dx, esophageal stricture, dysphagia, gastirc ulcer, migraines. History of Any Multi-Drug Resistant Organisms: None Reported Past Surgical History: No Surgical Hx Reported Additional Past Surgical History / Comment(s): EGDs/dilatations, colonoscopy. Past Anesthesia/Blood Transfusion Reactions: No Reported Reaction Smoking Status: Current every day smoker - Past Family History Father Family Medical History: Cancer, Diabetes Mellitus, Hyperlipidemia, Hypertension , Myocardial Infarction ([place]) Additional Family Medical History / Comment(s): SMOKER- HAD CANCER OF LARNYX, AT AGE 58. FATHER HAD MULTIPLE MIs AND HIS FIRST TX WAS IN HIS LATE 40s OR 50s. Mother Family Medical History: Diabetes Mellitus, Dialysis, Hyperlipidemia, Hypertension, Renal Disease Medications and Allergies Home Medications Medication Instructions Recorded Confirmed Type Fenofibrate Nanocrystallized 145 mg PO DAILY 04/14/14 08/05/17 History [Tricor] Insulin Lispro Protamin/Lispro 30 unit SQ DAILY 04/14/14 08/05/17 History [humaLOG Mix 75-25 Kwikpen] Insulin Lispro Protamin/Lispro 45 unit SQ HS 04/14/14 08/05/17 History [humaLOG Mix 75-25 Kwikpen] Lipase/Protease/Amylase [Creon Dr 1 cap PO AC-TID 04/30/14 08/05/17 History 6,000 Units Capsule] Losartan Potassium [Cozaar] 100 mg PO HS 12/14/14 08/05/17 History Allergies Allergy/AdvReac Type Severity Reaction Status Date / Time shellfish derived Allergy Severe Rash/Hives Verified 08/05/17 09:31 hydrocodone bitartrate Allergy Rash/Hives/ Verified 08/05/17 09:31 [From [place]] Weakness Physical Exam Vitals: Vital Signs Temp Pulse Pulse Resp BP BP Pulse Ox 08/05/17 12:00 96.5 F L 81 18 156/98 96 08/05/17 10:50 97.1 F L 74 18 145/85 98 08/05/17 10:10 84 18 152/90 97 08/05/17 09:11 94 20 175/101 94 L 08/05/17 08:08 98 F 88 20 176/107 98 Intake and Output 08/04/17 08/05/17 08/05/17 22:59 06:59 14:59 Output Total 0 Balance 0 Output: Urine 0 Other: Weight 94.801 kg PHYSICAL EXAMINATION: HEENT: Head is atraumatic, normocephalic. Pupils equal, round. Neck is supple. There is no elevated jugular venous pressure. HEART EXAMINATION: Heart S1, S2 normal. No murmur or gallop heard. CHEST EXAMINATION: Lungs are clear to auscultation and precussion. No chest wall tenderness is noted on palpation or with deep breathing. ABDOMEN: Soft, nontender. Bowel sounds are heard. No organomegaly noted. EXTREMITIES: 2+ peripheral pulses with no evidence of peripheral edema and no calf tenderness noted. NEUROLOGIC patient is awake, alert and oriented -3. . Results 08/05/17 08:35 08/05/17 08:35 Cardiac Enzymes 08/05/17 08/05/17 Range/Units 08:35 08:35 AST 15 L (17-59) U/L CK-MB (CK-2) 1.3 (0.0-2.4) ng/mL Troponin I <0.012 (0.000-0.034) ng/mL Coagulation 08/05/17 Range/Units 08:35 PT 9.4 (9.0-12.0) sec APTT 23.5 (22.0-30.0) sec CBC 08/05/17 Range/Units 08:35 WBC 12.2 H (3.8-10.6) k/uL RBC 4.90 (4.30-5.90) m/uL Hgb 15.4 (13.0-17.5) gm/dL Hct 40.3 (39.0-53.0) % Plt Count 247 (150-450) k/uL Comprehensive Metabolic Panel 08/05/17 Range/Units 08:35 Sodium 139 (137-145) mmol/L Potassium 4.0 (3.5-5.1) mmol/L Chloride 107 (98-107) mmol/L Carbon Dioxide 16 L (22-30) mmol/L BUN 11 (9-20) mg/dL Creatinine 0.63 L (0.66-1.25) mg/dL Glucose 183 H (74-99) mg/dL Calcium 9.3 (8.4-10.2) mg/dL AST 15 L (17-59) U/L ALT 19 L (21-72) U/L Alkaline Phosphatase 85 (38-126) U/L Total Protein 7.3 (6.3-8.2) g/dL Albumin 4.0 (3.5-5.0) g/dL Current Medications Generic Name Dose Route Start Last Admin Trade Name Freq PRN Reason Stop Dose Admin Lipase/Protease/Amylase 1 each 08/05/17 12:30 Zenpep 5,000 Units Capsule PO AC-TID ILANA Aspirin 325 mg 08/06/17 09:00 Aspirin PO DAILY ILANA Fenofibrate 160 mg 08/06/17 09:00 Lofibra PO DAILY ILANA Sodium Chloride 1,000 mls @ 100 mls/hr 08/05/17 08:24 08/05/17 10:11 Saline 0.9% IV 08/05/17 18:23 100 mls/hr .Q10H STA Administration Sodium Chloride 1,000 mls @ 100 mls/hr 08/05/17 10:45 08/05/17 12:01 Saline 0.9% IV 100 mls/hr .Q10H ILANA Administration Insulin Aspart 30 unit 08/06/17 09:00 Novolog Mix 70-30 Vial SQ DAILY ILANA Insulin Aspart 45 unit 08/05/17 21:00 Novolog Mix 70-30 Vial SQ HS ILANA Losartan Potassium 100 mg 08/05/17 21:00 Cozaar PO HS ILANA Nitroglycerin 0.4 mg 08/05/17 10:44 Nitrostat SUBLINGUAL Q5M PRN Chest Pain Intake and Output 08/04/17 08/05/17 08/05/17 22:59 06:59 14:59 Output Total 0 Balance 0 Output: Urine 0 Other: Weight 94.801 kg Patient Weight 08/06/17 06:59 Weight 94.801 kg 08/05/17 08:35 08/05/17 08:35 EKG Interpretations (text) EKG shows a normal sinus rhythm with no acute changes. Assessment and Plan Plan: Assessment and plan #1 abdominal discomfort with associated nausea. Mildly abnormal liver functions. Patient has history of pancreatitis. #2 atypical chest discomfort, troponin 1 negative. EKG shows normal sinus rhythm with no acute changes. Stress echocardiographic study performed in July 2016 negative for any reversible ischemia. #3 hypertension #4 hyperlipidemia #5 diabetes #6 nicotine dependence patient smokes one to 2 packs of cigarettes per day #7 history of excessive EtOH abuse, patient quit drinking 5 years ago Plan We will obtain 2 subsequent troponins, obtain an echocardiogram with Doppler study. Patient's pain is very atypical for acute coronary syndrome. Stress echo performed in July 2016 was negative for any reversible ischemia. Recommend workup for abdominal discomfort. Further recommendations to follow. DNP note has been reviewed, I agree with a documented findings and plan of care. Patient was seen and examined.
[2017-08-05] MEDS: LIPASE 5,000/PROTEASE 17,000/AMYLASE 27,0000 PO SCH ×2 (14:45→16:59)
--- NOTE | 2017-08-05 14:50 | P.HPIM ---
History of Present Illness 42-year-old the female came in with complaints of epigastric abdominal pain about 5/10 in severity sharp in nature started today morning while he is at his work today is with nausea denied any vomiting denied any fever chills and patient's pain radiates to the back. Patient still has his gallbladder patient had history of alcoholism with multiple episodes of all call if pancreatic that is in the past patient uses pancreatic in the supplementation for that. Patient denied any fever chills patient denied dysuria cough runny nose. Patient had a stress test in 2017 which was negative patient's troponins are negative EKG did not show any acute ST-T wave changes patient was a valid by cardiology as well. I'm obtaining ultrasound of the abdomen to rule out any pseudocyst patient will be started on Protonix for possible peptic ulcer disease. Review of Systems REVIEW OF SYSTEMS: CONSTITUTIONAL: No fever, no malaise, no fatigue. HEENT: No recent visual problems or hearing problems. Denied any sore throat. CARDIOVASCULAR: No chest pain, orthopnea, PND, no palpitations, no syncope. PULMONARY: No shortness of breath, no cough, no hemoptysis. GASTROINTESTINAL: As mentioned in HPI NEUROLOGICAL: No headaches, no weakness, no numbness. HEMATOLOGICAL: Denies any bleeding or petechiae. GENITOURINARY: Denies any burning micturition, frequency, or urgency. MUSCULOSKELETAL/RHEUMATOLOGICAL: Denies any joint pain, swelling, or any muscle pain. ENDOCRINE: Denies any polyuria or polydipsia. The rest of the 14-point review of systems is negative. Past Medical History Past Medical History: Diabetes Mellitus, Hyperlipidemia, Hypertension Additional Past Medical History / Comment(s): IDDM type II, high triglycerides, chronic pancreatitis, diverticular dx, esophageal stricture, dysphagia, gastirc ulcer, migraines. History of Any Multi-Drug Resistant Organisms: None Reported Past Surgical History: No Surgical Hx Reported Additional Past Surgical History / Comment(s): EGDs/dilatations, colonoscopy. Past Anesthesia/Blood Transfusion Reactions: No Reported Reaction Smoking Status: Current every day smoker - Past Family History Father Family Medical History: Cancer, Diabetes Mellitus, Hyperlipidemia, Hypertension , Myocardial Infarction ([place]) Additional Family Medical History / Comment(s): SMOKER- HAD CANCER OF LARNYX, AT AGE 58. FATHER HAD MULTIPLE MIs AND HIS FIRST ND WAS IN HIS LATE 40s OR 50s. Mother Family Medical History: Diabetes Mellitus, Dialysis, Hyperlipidemia, Hypertension, Renal Disease Medications and Allergies Home Medications Medication Instructions Recorded Confirmed Type Fenofibrate Nanocrystallized 145 mg PO DAILY 04/14/14 08/05/17 History [Tricor] Insulin Lispro Protamin/Lispro 30 unit SQ DAILY 04/14/14 08/05/17 History [humaLOG Mix 75-25 Kwikpen] Insulin Lispro Protamin/Lispro 45 unit SQ HS 04/14/14 08/05/17 History [humaLOG Mix 75-25 Kwikpen] Lipase/Protease/Amylase [Shahidaon Dr 1 cap PO AC-TID 04/30/14 08/05/17 History 6,000 Units Capsule] Losartan Potassium [Cozaar] 100 mg PO HS 12/14/14 08/05/17 History Allergies Allergy/AdvReac Type Severity Reaction Status Date / Time shellfish derived Allergy Severe Rash/Hives Verified 08/05/17 09:31 hydrocodone bitartrate Allergy Rash/Hives/ Verified 08/05/17 09:31 [From [place]] Weakness Physical Exam Vitals: Vital Signs Temp Pulse Pulse Resp BP BP Pulse Ox 08/05/17 12:00 96.5 F L 81 18 156/98 96 08/05/17 10:50 97.1 F L 74 18 145/85 98 08/05/17 10:10 84 18 152/90 97 08/05/17 09:11 94 20 175/101 94 L 08/05/17 08:08 98 F 88 20 176/107 98 Intake and Output 08/04/17 08/05/17 08/05/17 22:59 06:59 14:59 Output Total 0 Balance 0 Output: Urine 0 Other: Weight 94.801 kg PHYSICAL EXAMINATION: GENERAL: The patient is alert and oriented x3, not in any acute distress. Well developed, well nourished. HEENT: Pupils are round and equally reacting to light. EOMI. No scleral icterus. No conjunctival pallor. Normocephalic, atraumatic. No pharyngeal erythema. No thyromegaly. CARDIOVASCULAR: S1 and S2 present. No murmurs, rubs, or gallops. PULMONARY: Chest is clear to auscultation, no wheezing or crackles. ABDOMEN: Soft, nontender, nondistended, normoactive bowel sounds. No palpable organomegaly. MUSCULOSKELETAL: No joint swelling or deformity. EXTREMITIES: No cyanosis, clubbing, or pedal edema. NEUROLOGICAL: Gross neurological examination did not reveal any focal deficits. SKIN: No rashes. Results CBC & Chem 7: 08/05/17 08:35 08/05/17 08:35 Labs: Abnormal Lab Results - Last 24 Hours (Table) 08/05/17 08/05/17 08/05/17 Range/Units 08:35 08:35 11:57 WBC 12.2 H (3.8-10.6) k/uL MCHC 38.3 H (31.0-37.0) g/dL Carbon Dioxide 16 L (22-30) mmol/L Creatinine 0.63 L (0.66-1.25) mg/dL Glucose 183 H (74-99) mg/dL POC Glucose (mg/dL) 161 H (75-99) mg/dL Magnesium 1.4 L (1.6-2.3) mg/dL AST 15 L (17-59) U/L ALT 19 L (21-72) U/L Thrombosis Risk Factor Assmnt - Choose All That Apply Any of the Below Risk Factors Present?: Yes Each Factor Represents 1 point: Age 41-60 years, Obesity (BMI >25) Other Risk Factors: No Other congenital or acquired thrombophilia - If yes, enter type in comment: No Thrombosis Risk Factor Assessment Total Risk Factor Score: 2 Thrombosis Risk Factor Assessment Level: Low Risk Assessment and Plan Plan: -Epigastric abdominal pain: Most probably related to either peptic ulcer disease or pancreatic pseudocyst obtain ultrasound of the liver and gallbladder and pancreatic ultrasound to rule out any pancreatic cyst. Patient will be continued on as needed pain medication the form of morphine. -Pancreatic insufficiency from previous multiple episodes a pint pancreatitis leading to type 1 diabetes mellitus will continue with his insulin regimen patient will be resumed on diet once we had done with ultrasound of the abdomen. Patient will be continued on home regimen with sliding scale and close blood sugar measurements. -Type 1 diabetes mellitus from pancreatic insufficiency -Hyperlipidemia -Hypertension
[2017-08-05 15:37] LABS: Creatine Kinase 93 U/L (55-170)
--- NOTE | 2017-08-05 15:37 | US ---
EXAMINATION TYPE: US abdomen limited DATE OF EXAM: 08/05/2017 COMPARISON: CT and US CLINICAL HISTORY: R/O Pancreatic cyst. Pt states chest and ABD pain, history of pancreatitis and pseu docyst EXAM MEASUREMENTS: Liver Length: 22.1 cm, normal less than 15.5 cm. Gallbladder Wall: 0.2 cm CBD: 0.4 cm Right Kidney: 13.5 x 4.5 x 6.1 cm Pancreas: Heterogeneous, 4mm panc duct visualized, distal body and tail obscured by overlying bowel gas. Previous mid body cystlike area identified on the CT of 11/24/2016 was not reported on the [employer] t ultrasound. Liver: Enlarged, heterogeneous, difficult to penetrate . Findings are compatible some mild fatty in filtration. Gallbladder: wnl Evidence for sonographic Duffy's sign: No CBD: wnl Right Kidney: wnl IMPRESSION: 1. Mild fatty infiltration and hepatomegaly. 2. No pseudocyst formation identified at this time. Pancreas evaluation is somewhat limited due to kyle wel gas. This may be better evaluated with CT. 3. Pancreatic duct is somewhat prominent.
[2017-08-05 15:50] LABS: Creatine Kinase MB 0.9 ng/mL (0.0-2.4); Troponin I <0.012 ng/mL (0.000-0.034)
[2017-08-05 16:53] LABS: Glucose,Whole Blood 249 mg/dL (75-99)
[2017-08-05] MEDS: INSULIN ASPART 100 UNIT/ML 1 ML 10 ML VIAL SQ SCH ×2 (16:59→20:47)
[2017-08-05 20:10] LABS: Creatine Kinase 79 U/L (55-170)
[2017-08-05 20:19] LABS: Glucose,Whole Blood 239 mg/dL (75-99)
[2017-08-05 20:22] LABS: Creatine Kinase MB 0.8 ng/mL (0.0-2.4); Troponin I <0.012 ng/mL (0.000-0.034)
[2017-08-05] MEDS: PANTOPRAZOLE 40 MG/10 ML VIAL IVP SCH (20:48)
[2017-08-05] MEDS ORDERED: INSULN ASP PRT/INSULIN ASPART 100 UNIT/ML 10 ML VIAL SQ SCH (21:00)
[2017-08-05] MEDS ORDERED: LOSARTAN 50 MG TAB PO SCH (21:00)
[2017-08-05] MEDS ORDERED: MORPHINE ORAL SOLN 10 MG/5 ML CUP PO PRN (22:15)
[2017-08-06 03:55] VITALS: RESP 16
[2017-08-06] MEDS: SODIUM CHLORIDE 0.9% 1,000 ML IV SCH (04:49)
[2017-08-06 07:16] LABS: HCT 35.8 % (39.0-53.0); HGB 13.4 gm/dL (13.0-17.5); MCH 31.8 pg (25.0-35.0); MCHC 37.4 g/dL (31.0-37.0); MCV 84.9 fL (80.0-100.0); Mean Platelet Volume 6.2; Platelet Count 198 k/uL (150-450); RBC 4.22 m/uL (4.30-5.90); RDW 13.4 % (11.5-15.5); WBC 7.8 k/uL (3.8-10.6)
[2017-08-06 07:40] LABS: Anion Gap 10 mmol/L; Blood Urea Nitrogen 11 mg/dL (9-20); Calcium 9.2 mg/dL (8.4-10.2); Carbon Dioxide 23 mmol/L (22-30); Chloride 108 mmol/L (98-107); Cholesterol 307 mg/dL (<200); Glucose 124 mg/dL (74-99); HDL Cholesterol 34 mg/dL (40-60); Potassium 4.3 mmol/L (3.5-5.1); Sodium 141 mmol/L (137-145)
[2017-08-06] MEDS: LIPASE 5,000/PROTEASE 17,000/AMYLASE 27,0000 PO SCH (08:05)
[2017-08-06] MEDS: PANTOPRAZOLE 40 MG/10 ML VIAL IVP SCH (08:05)
[2017-08-06 08:17] LABS: Glucose,Whole Blood 137 mg/dL (75-99)
[2017-08-06 08:31] LABS: Triglycerides 1994 mg/dL (<150)
[2017-08-06] MEDS: INSULIN ASPART 100 UNIT/ML 1 ML 10 ML VIAL SQ SCH (08:54)
[2017-08-06] MEDS ORDERED: ASPIRIN 325 MG TAB PO SCH (09:00)
[2017-08-06] MEDS ORDERED: INSULN ASP PRT/INSULIN ASPART 100 UNIT/ML 10 ML VIAL SQ SCH (09:00)
[2017-08-06] MEDS ORDERED: FENOFIBRATE 160 MG TAB PO SCH (09:00)
--- NOTE | 2017-08-06 11:04 | ECHOF ---
Referral Reason:chest pain MEASUREMENTS -------- HEIGHT: 180.3 cm WEIGHT: 94.8 kg BP: 156/98 RVIDd: 3.1 cm (< 3.3) IVSd: 1.2 cm (0.6 - 1.1) LVIDd: 5.3 cm (3.9 - 5.3) LVPWd: 1.2 cm (0.6 - 1.1) IVSs: 1.6 cm LVIDs: 3.7 cm LVPWs: 1.5 cm LAESV Index (A-L): 18.15 ml/m Ao Diam: 3.8 cm (2.0 - 3.7) AV Cusp: 2.2 cm (1.5 - 2.6) LA Diam: 2.7 cm (2.7 - 3.8) MV E Kyle: 0.77 m/s MV DecT: 281 ms MV A Kyle: 0.80 m/s MV E/A Ratio: 0.95 RAP: 5.00 mmHg RVSP: 10.19 mmHg FINDINGS -------- Sinus rhythm. This was a technically adequate study. The left ventricular size is normal. There is mild concentric left ventricular hypertrophy. Overa ll left ventricular systolic function is normal with, an EF between 55 - 60 %. The right ventricle is normal in size and function. Normal LA size by volume 22+/-6 ml/m2. The right atrium is normal in size. Aortic valve is trileaflet and is mildly thickened. There is no evidence of aortic regurgitation. There is no evidence of aortic stenosis. The mitral valve leaflets are mildly thickened. There is trace to mild mitral regurgitation. Trace tricuspid regurgitation present. Right ventricular systolic pressure is normal at < 35 mmHg. There is no evidence of pulmonary hypertension. The pulmonic valve was not well visualized. The aortic root size is normal. IVC Not well visulized. There is no pericardial effusion. CONCLUSIONS -------- 1. Sinus rhythm. 2. This was a technically adequate study. 3. The left ventricular size is normal. 4. There is mild concentric left ventricular hypertrophy. 5. Overall left ventricular systolic function is normal with, an EF between 55 - 60 %. 6. Normal LA size by volume 22+/-6 ml/m2. 7. Aortic valve is trileaflet and is mildly thickened. 8. The mitral valve leaflets are mildly thickened. 9. There is trace to mild mitral regurgitation. 10. Trace tricuspid regurgitation present. 11. Right ventricular systolic pressure is normal at < 35 mmHg. 12. There is no evidence of pulmonary hypertension. 13. The pulmonic valve was not well visualized. 14. The aortic root size is normal. 15. IVC Not well visulized. 16. There is no pericardial effusion. APPOINTMENT COORDINATOR: Derian Mesa RDCS
[2017-08-06 11:44] VITALS: BP 176/93; PULSE 70; TEMP 97.6
[2017-08-06 13:51] LABS: Hemoglobin A1C 9.3 % (4.0-6.0)
--- NOTE | 2017-08-06 15:20 | P.DS ---
Providers Date of admission: 08/05/17 10:44 Attending physician: Tommy Castano Consults: 08/05/17 10:44 Consult Physician Urgent Consulting Provider: Keith Kiser Consult Reason/Comments: Chest pain Do you want consulting provider notified?: Yes Primary care physician: Shahid Larose [facility] Course: 42-year-old admitted with epigastric abdominal pain and also some of the abdomen did not show any pseudocyst and patient probably has gastritis patient will be discharged today patient has highly elevated LDL triglycerides and elevated blood pressure because of which I'm adding hydrochloride thiazide, simvastatin patient had issues with the Lipitor in the past and patient cannot afford rosuvastatin and the patient will be discharged on Prilosec 40 mg for of 15 days. PHYSICAL EXAMINATION: GENERAL: The patient is alert and oriented x3, not in any acute distress. Well developed, well nourished. HEENT: Pupils are round and equally reacting to light. EOMI. No scleral icterus. No conjunctival pallor. Normocephalic, atraumatic. No pharyngeal erythema. No thyromegaly. CARDIOVASCULAR: S1 and S2 present. No murmurs, rubs, or gallops. PULMONARY: Chest is clear to auscultation, no wheezing or crackles. ABDOMEN: Soft, nontender, nondistended, normoactive bowel sounds. No palpable organomegaly. MUSCULOSKELETAL: No joint swelling or deformity. EXTREMITIES: No cyanosis, clubbing, or pedal edema. NEUROLOGICAL: Gross neurological examination did not reveal any focal deficits. SKIN: No rashes. For rest of the chronic medical problems please refer to dictation of the H&P from yesterday Patient Condition at Discharge: Good Plan - Discharge Summary Discharge Rx Participant: No New Discharge Prescriptions: New Omeprazole [PriLOSEC] 40 mg PO AC-BRKFST #14 capsule. Simvastatin [Zocor] 40 mg PO HS #30 tab Hydrochlorothiazide [Hydrodiuril] 25 mg PO DAILY #30 tab No Action Insulin Lispro Protamin/Lispro [humaLOG Mix 75-25 Kwikpen] 45 unit SQ HS Fenofibrate Nanocrystallized [Tricor] 145 mg PO DAILY Insulin Lispro Protamin/Lispro [humaLOG Mix 75-25 Kwikpen] 30 unit SQ DAILY Lipase/Protease/Amylase [Kaleb Pettit 6,000 Units Capsule] 1 cap PO AC-TID Losartan Potassium [Cozaar] 100 mg PO HS Discharge Medication List Fenofibrate Nanocrystallized [Tricor] 145 mg PO DAILY 04/14/14 [History] Insulin Lispro Protamin/Lispro [humaLOG Mix 75-25 Kwikpen] 30 unit SQ DAILY 03/18 [History] Insulin Lispro Protamin/Lispro [humaLOG Mix 75-25 Kwikpen] 45 unit SQ HS [History] Lipase/Protease/Amylase [Kaleb Pettit 6,000 Units Capsule] 1 cap PO AC-TID 04/30/14 [History] Losartan Potassium [Cozaar] 100 mg PO HS 12/14/14 [History] Hydrochlorothiazide [Hydrodiuril] 25 mg PO DAILY #30 tab 08/06/17 [Rx] Omeprazole [PriLOSEC] 40 mg PO AC-BRKFST #14 capsule. 08/06/17 [Rx] Simvastatin [Zocor] 40 mg PO HS #30 tab 08/06/17 [Rx] Follow up Appointment(s)/Referral(s): Shahid Larose MD [Primary Care Provider] - 3 Days Discharge Disposition: HOME SELF-CARE
[2017-08-07] MEDS ORDERED: PANTOPRAZOLE 40 MG TABLET PO SCH (09:00)
== END 2017-08-06 13:51 | disposition home or self-care (01) ==
LOC: EC 08:06 → 6SEL 10:44 → 3OBS 08-06 01:34
PROVIDERS: ADMIT Hospitalist; ATTEND Hospitalist
DX: R07.89 Other chest pain (principal); R10.13 Epigastric pain; R11.0 Nausea; I10 Essential (primary) hypertension; E78.1 Pure hyperglyceridemia; E11.9 Type 2 diabetes mellitus without complications; K86.81 Exocrine pancreatic insufficiency; K76.0 Fatty (change of) liver, not elsewhere classified; R94.5 Abnormal results of liver function studies; K22.2 Esophageal obstruction; E87.2 Acidosis; K57.90 Diverticulosis of intestine, part unspecified, without perforation or abscess without bleeding; G43.909 Migraine, unspecified, not intractable, without status migrainosus; E78.5 Hyperlipidemia, unspecified; F17.210 Nicotine dependence, cigarettes, uncomplicated; E66.9 Obesity, unspecified; Z68.29 Body mass index [BMI] 29.0-29.9, adult; R20.0 Anesthesia of skin; F10.21 Alcohol dependence, in remission; Z79.899 Other long term (current) drug therapy; Z79.4 Long term (current) use of insulin; Z88.5 Allergy status to narcotic agent; Z91.013 Allergy to seafood; Z87.19 Personal history of other diseases of the digestive system; Z87.11 Personal history of peptic ulcer disease; Z83.3 Family history of diabetes mellitus; Z82.49 Family history of ischemic heart disease and other diseases of the circulatory system; Z83.49 Family history of other endocrine, nutritional and metabolic diseases; Z85.21 Personal history of malignant neoplasm of larynx; Z84.1 Family history of disorders of kidney and ureter
CPT/HCPCS: 99285 ×2; 96374 ×2; 96375 ×3; 96361 ×6; 96376; 36415; 93005; 93306; 85379; 80061; 80053; 80048; 82150; 82550; 82553; 83690; 83735; 84484; 85025; 85027; 85610; 85730; 83036; 71046; 76705; G0378 ×2; J2405; J3010; C9113 ×2; J2270

== ENCOUNTER 2017-08-13 17:51 | Observation (INO) | payer OTHER ==
[2017-08-13 18:31] LABS: Basophils # (A) 0.1 k/uL (0-0.2); Basophils % (A) 1 %; Eosinophils # (A) 0.6 k/uL (0-0.7); Eosinophils % (A) 7 %; HCT 43.4 % (39.0-53.0); Hyperchromasia Slight; Lymphocytes # (A) 2.9 k/uL (1.0-4.8); Lymphocytes % (A) 31 %; MCH 31.5 pg (25.0-35.0); Mean Platelet Volume 6.6; Monocytes # (A) 0.4 k/uL (0-1.0); Monocytes % (A) 4 %; Neutrophils # (A) 5.1 k/uL (1.3-7.7); Neutrophils % (A) 55 %; Platelet Count 272 k/uL (150-450); RBC 5.29 m/uL (4.30-5.90); RDW 12.9 % (11.5-15.5); WBC 9.2 k/uL (3.8-10.6)
[2017-08-13 18:33] LABS: HGB 16.7 gm/dL (13.0-17.5); MCHC 37.3 g/dL (31.0-37.0)
[2017-08-13 18:35] LABS: ALT 19 U/L (21-72); AST 16 U/L (17-59); Alkaline Phosphatase 112 U/L (38-126); Anion Gap 15 mmol/L; Blood Urea Nitrogen 19 mg/dL (9-20); Calcium 9.3 mg/dL (8.4-10.2); Carbon Dioxide 19 mmol/L (22-30); Chloride 102 mmol/L (98-107); Glucose 379 mg/dL (74-99); Magnesium 1.5 mg/dL (1.6-2.3); Sodium 136 mmol/L (137-145); Total Bilirubin 0.4 mg/dL (0.2-1.3); Total Protein 7.1 g/dL (6.3-8.2)
[2017-08-13 18:41] LABS: Potassium 4.8 mmol/L (3.5-5.1)
[2017-08-13 18:48] LABS: Creatine Kinase 68 U/L (55-170)
[2017-08-13 18:59] LABS: Creatine Kinase MB 0.6 ng/mL (0.0-2.4); Troponin I <0.012 ng/mL (0.000-0.034)
--- NOTE | 2017-08-13 19:50 | ED ---
General Adult HPI - General Chief complaint: Chest Pain Stated complaint: Chest pain/Racing heart Time Seen by Provider: 08/13/17 18:23 Source: patient, RN notes reviewed, old records reviewed Mode of arrival: ambulatory Limitations: no limitations - History of Present Illness Initial comments: This is a 42-year-old male the ER for evaluation. Patient presented today for evaluation of chest pain left-sided chest pain. Diffuse chest pain. Leg pain and diffuse body pain. Mild epigastric pain no nausea vomiting no fevers. No cough or congestion. No recent travel history. Patient does have recent admission, recent stress test which was inconclusive. Patient states his chest pain is worsening now, with shortness of breath - Related Data Home Medications Medication Instructions Recorded Confirmed Fenofibrate Nanocrystallized 145 mg PO HS 04/14/14 08/13/17 [Tricor] Insulin Lispro Protamin/Lispro 30 unit SQ DAILY 04/14/14 08/13/17 [humaLOG Mix 75-25 Kwikpen] Insulin Lispro Protamin/Lispro 45 unit SQ HS 04/14/14 08/13/17 [humaLOG Mix 75-25 Kwikpen] Lipase/Protease/Amylase [Kaleb Pettit 1 cap PO AC-TID 04/30/14 08/13/17 6,000 Units Capsule] Losartan Potassium [Cozaar] 100 mg PO DAILY 12/14/14 08/13/17 Previous Rx's Medication Instructions Recorded Hydrochlorothiazide [Hydrodiuril] 25 mg PO DAILY #30 tab 08/06/17 Omeprazole [PriLOSEC] 40 mg PO AC-BRKFST #14 capsule. 08/06/17 Simvastatin [Zocor] 40 mg PO HS #30 tab 08/06/17 Allergies Allergy/AdvReac Type Severity Reaction Status Date / Time shellfish derived Allergy Severe Rash/Hives Verified 08/13/17 17:55 hydrocodone bitartrate Allergy Rash/Hives/ Verified 08/13/17 17:55 [From [place]] Weakness Review of Systems ROS Statement: Those systems with pertinent positive or pertinent negative responses have been documented in the HPI. ROS Other: All systems not noted in ROS Statement are negative. Past Medical History Past Medical History: Diabetes Mellitus, Hyperlipidemia, Hypertension Additional Past Medical History / Comment(s): IDDM type II, high triglycerides, chronic pancreatitis, diverticular dx, esophageal stricture, dysphagia, gastirc ulcer, migraines. History of Any Multi-Drug Resistant Organisms: None Reported Past Surgical History: No Surgical Hx Reported Additional Past Surgical History / Comment(s): EGDs/dilatations, colonoscopy. Past Anesthesia/Blood Transfusion Reactions: No Reported Reaction Past Psychological History: No Psychological Hx Reported Smoking Status: Current every day smoker Past Alcohol Use History: None Reported Past Drug Use History: None Reported - Past Family History Father Family Medical History: Cancer, Diabetes Mellitus, Hyperlipidemia, Hypertension , Myocardial Infarction ([place]) Additional Family Medical History / Comment(s): SMOKER- HAD CANCER OF LARNYX, AT AGE 58. FATHER HAD MULTIPLE MIs AND HIS FIRST GA WAS IN HIS LATE 40s OR 50s. Mother Family Medical History: Diabetes Mellitus, Dialysis, Hyperlipidemia, Hypertension, Renal Disease General Exam Limitations: no limitations General appearance: alert, in no apparent distress, anxious Head exam: Present: atraumatic, normocephalic, normal inspection Eye exam: Present: normal appearance, PERRL, EOMI. Absent: scleral icterus, conjunctival injection, periorbital swelling ENT exam: Present: normal exam, mucous membranes moist Neck exam: Present: normal inspection. Absent: tenderness, meningismus, lymphadenopathy Respiratory exam: Present: normal lung sounds bilaterally. Absent: respiratory distress, wheezes, rales, rhonchi, stridor Cardiovascular Exam: Present: normal rhythm, tachycardia, normal heart sounds. Absent: systolic murmur, diastolic murmur, rubs, gallop, clicks GI/Abdominal exam: Present: soft, normal bowel sounds. Absent: distended, tenderness, guarding, rebound, rigid Extremities exam: Present: normal inspection, full ROM, normal capillary refill. Absent: tenderness, pedal edema, joint swelling, calf tenderness Back exam: Present: normal inspection Neurological exam: Present: alert, oriented X3, CN II-XII intact Psychiatric exam: Present: normal affect, normal mood Skin exam: Present: warm, dry, intact, normal color. Absent: rash Course Vital Signs 08/13/17 17:53 Temperature 97.7 F Pulse Rate 101 H Respiratory 18 Rate Blood Pressure 155/93 O2 Sat by Pulse 99 Oximetry - Reevaluation(s) Reevaluation #1: 08/13/17 20:15 Patient has improved pain Reevaluation #2: 08/13/17 20:15 Unable to test INR secondary to high lipids and blood Reevaluation #3: 08/13/17 20:15 Patient was seen and evaluated by medical record and prior heart evaluations are reviewed including prior stress test Medical Decision Making - Medical Decision Making 39 female the ER for evaluation of chest pain. Patient has likely blood, patient was placed on anticoagulation admitted for cardiology regarding evaluation of chest pain. - Lab Data Result diagrams: 08/13/17 18:00 08/13/17 18:00 Lab Results 08/13/17 08/13/17 08/13/17 Range/Units 18:00 18:00 18:00 WBC 9.2 (3.8-10.6) k/uL RBC 5.29 (4.30-5.90) m/uL Hgb 16.7 D (13.0-17.5) gm/dL Hct 43.4 (39.0-53.0) % MCV 82.0 (80.0-100.0) fL MCH 31.5 (25.0-35.0) pg MCHC 37.3 H (31.0-37.0) g/dL RDW 12.9 (11.5-15.5) % Plt Count 272 (150-450) k/uL Neutrophils % 55 % Lymphocytes % 31 % Monocytes % 4 % Eosinophils % 7 % Basophils % 1 % Neutrophils # 5.1 (1.3-7.7) k/uL Lymphocytes # 2.9 (1.0-4.8) k/uL Monocytes # 0.4 (0-1.0) k/uL Eosinophils # 0.6 (0-0.7) k/uL Basophils # 0.1 (0-0.2) k/uL Hyperchromasia Slight APTT (22.0-30.0) sec Sodium 136 L (137-145) mmol/L Potassium 4.8 (3.5-5.1) mmol/L Chloride 102 (98-107) mmol/L Carbon Dioxide 19 L (22-30) mmol/L Anion Gap 15 mmol/L BUN 19 (9-20) mg/dL Creatinine 0.90 (0.66-1.25) mg/dL Est GFR (CKD-EPI)AfAm >90 (>60 ml/min/1.73 sqM) Est GFR (CKD-EPI)NonAf >90 (>60 ml/min/1.73 sqM) Glucose 379 H (74-99) mg/dL Calcium 9.3 (8.4-10.2) mg/dL Magnesium 1.5 L (1.6-2.3) mg/dL Total Bilirubin 0.4 (0.2-1.3) mg/dL AST 16 L (17-59) U/L ALT 19 L (21-72) U/L Alkaline Phosphatase 112 (38-126) U/L Total Creatine Kinase 68 (55-170) U/L CK-MB (CK-2) 0.6 (0.0-2.4) ng/mL CK-MB (CK-2) Rel Index 0.9 Troponin I <0.012 (0.000-0.034) ng/mL Total Protein 7.1 (6.3-8.2) g/dL Albumin 4.0 (3.5-5.0) g/dL 08/13/17 Range/Units 18:00 WBC (3.8-10.6) k/uL RBC (4.30-5.90) m/uL Hgb (13.0-17.5) gm/dL Hct (39.0-53.0) % MCV (80.0-100.0) fL MCH (25.0-35.0) pg MCHC (31.0-37.0) g/dL RDW (11.5-15.5) % Plt Count (150-450) k/uL Neutrophils % % Lymphocytes % % Monocytes % % Eosinophils % % Basophils % % Neutrophils # (1.3-7.7) k/uL Lymphocytes # (1.0-4.8) k/uL Monocytes # (0-1.0) k/uL Eosinophils # (0-0.7) k/uL Basophils # (0-0.2) k/uL Hyperchromasia APTT 23.2 (22.0-30.0) sec Sodium (137-145) mmol/L Potassium (3.5-5.1) mmol/L Chloride (98-107) mmol/L Carbon Dioxide (22-30) mmol/L Anion Gap mmol/L BUN (9-20) mg/dL Creatinine (0.66-1.25) mg/dL Est GFR (CKD-EPI)AfAm (>60 ml/min/1.73 sqM) Est GFR (CKD-EPI)NonAf (>60 ml/min/1.73 sqM) Glucose (74-99) mg/dL Calcium (8.4-10.2) mg/dL Magnesium (1.6-2.3) mg/dL Total Bilirubin (0.2-1.3) mg/dL AST (17-59) U/L ALT (21-72) U/L Alkaline Phosphatase (38-126) U/L Total Creatine Kinase (55-170) U/L CK-MB (CK-2) (0.0-2.4) ng/mL CK-MB (CK-2) Rel Index Troponin I (0.000-0.034) ng/mL Total Protein (6.3-8.2) g/dL Albumin (3.5-5.0) g/dL Critical Care Time Critical Care Time: Yes Total Critical Care Time: 31 Disposition Clinical Impression: Chest pain Disposition: ADMITTED IP TO THIS HOSP Condition: Undetermined Referrals: Shahid Larose MD [Primary Care Provider] - 1-2 days
[2017-08-13] MEDS ORDERED: HEPARIN SODIUM,PORCINE 5,000 UNIT/ML 1 ML VIAL IV PRN (20:11)
[2017-08-13] MEDS ORDERED: NITROGLYCERIN SL TABS 0.4 MG TAB SUBLINGUAL PRN (20:11)
[2017-08-13] MEDS ORDERED: HEPARIN SODIUM,PORCINE 5,000 UNIT/ML 1 ML VIAL IV ONE (20:11)
[2017-08-13] MEDS ORDERED: MORPHINE SULFATE 4MG/4ML SYRG IV PRN (20:11)
[2017-08-13] MEDS ORDERED: HEPARIN SOD,PORK IN 0.45% NACL 25,000 UNIT in 0.45% NACL 1 500ML.BAG IV SCH (20:15)
[2017-08-13] MEDS ORDERED: SODIUM CHLORIDE 0.9% 1,000 ML IV SCH (20:15)
[2017-08-13] MEDS ORDERED: SODIUM CHLORIDE 0.9% 1,000 ML IV ONE (20:48)
[2017-08-13] MEDS ORDERED: ATORVASTATIN 20 MG TAB PO SCH ×2 (22:30)
[2017-08-13] MEDS ORDERED: INSULN ASP PRT/INSULIN ASPART 100 UNIT/ML 10 ML VIAL SQ SCH (22:30)
[2017-08-13] MEDS ORDERED: FENOFIBRATE 160 MG TAB PO SCH (22:30)
[2017-08-13 22:47] LABS: Partial Thromboplastin Time 23.1 sec (22.0-30.0); Prothrombin Time 9.8 sec (9.0-12.0)
[2017-08-13] MEDS: METOPROLOL TARTRATE 25 MG TAB PO SCH (23:45)
[2017-08-14 00:16] LABS: Creatine Kinase 54 U/L (55-170)
[2017-08-14 00:29] LABS: Creatine Kinase MB 0.6 ng/mL (0.0-2.4); Troponin I <0.012 ng/mL (0.000-0.034)
[2017-08-14 01:29] VITALS: BMI 29.1
[2017-08-14 07:05] LABS: Mean Platelet Volume 6.5; Platelet Count 248 k/uL (150-450)
[2017-08-14 07:07] LABS: Cholesterol 217 mg/dL (<200); HDL Cholesterol 37 mg/dL (40-60)
[2017-08-14] MEDS ORDERED: PANTOPRAZOLE 40 MG TABLET PO SCH (07:30)
[2017-08-14 07:37] LABS: Triglycerides 2477 mg/dL (<150)
[2017-08-14 07:41] LABS: Creatine Kinase MB 0.5 ng/mL (0.0-2.4); Troponin I <0.012 ng/mL (0.000-0.034)
[2017-08-14] MEDS ORDERED: ACETAMINOPHEN TAB 325 MG TAB PO PRN (08:08)
[2017-08-14 08:09] VITALS: RESP 18
[2017-08-14 08:09] LABS: Glucose,Whole Blood 199 mg/dL (75-99)
--- NOTE | 2017-08-14 08:22 | P.HPIM ---
History of Present Illness H&P Date: 08/14/17 Chief Complaint: Chest pressure. This is a history of physical and 42-year-old white male with known history of intermittent and chronic hepatitis who is a 1 to pack per day smoker. The patient has an underlying history of chest pain the last week. Radiation to the right arm was noted. Pressure was the descriptor for the pain. OTC medication is not relieving. Long discussion about tobacco cessation is noted. Second hand smoke exposure is also noted with his . Review of Systems Constitutional: Denies chills, Denies fever Eyes: denies blurred vision, denies pain Gastrointestinal: Denies belching Musculoskeletal: Denies myalgias Integumentary: Denies pruritus, Denies rash Neurological: Denies numbness, Denies weakness Endocrine: Denies fatigue, Denies weight change Past Medical History Past Medical History: Diabetes Mellitus, Hyperlipidemia, Hypertension Additional Past Medical History / Comment(s): IDDM type II, high triglycerides, chronic pancreatitis, diverticular dx, esophageal stricture, dysphagia, gastirc ulcer, migraines. History of Any Multi-Drug Resistant Organisms: None Reported Past Surgical History: No Surgical Hx Reported Additional Past Surgical History / Comment(s): EGDs/dilatations, colonoscopy. Past Anesthesia/Blood Transfusion Reactions: No Reported Reaction Past Psychological History: No Psychological Hx Reported Additional Psychological History / Comment(s): Pt resides with his significant other. He is independent. Smoking Status: Current every day smoker Past Alcohol Use History: None Reported Additional Past Alcohol Use History / Comment(s): STARTED SMOKING AT AGE 11, SMOKES 1.5 PPD. PT WAS A HEAVY DRINKER X4 YEARS THEN QUITIN 2012 Past Drug Use History: None Reported Additional Drug Use History / Comment(s): TEENAGER SMOKED MARIJUANA NONE NOW. - Past Family History Father Family Medical History: Cancer, Diabetes Mellitus, Hyperlipidemia, Hypertension , Myocardial Infarction ([place]) Additional Family Medical History / Comment(s): SMOKER- HAD CANCER OF LARNYX, AT AGE 58. FATHER HAD MULTIPLE MIs AND HIS FIRST VA WAS IN HIS LATE 40s OR 50s. Mother Family Medical History: Diabetes Mellitus, Dialysis, Hyperlipidemia, Hypertension, Renal Disease Medications and Allergies Home Medications Medication Instructions Recorded Confirmed Type RX: Fenofibrate Nanocrystallized 145 mg PO HS 04/14/14 08/13/17 History [Tricor] RX: Insulin Lispro Protamin/Lispro 30 unit SQ DAILY 04/14/14 08/13/17 History [humaLOG Mix 75-25 Kwikpen] RX: Insulin Lispro Protamin/Lispro 45 unit SQ HS 04/14/14 08/13/17 History [humaLOG Mix 75-25 Kwikpen] RX: Lipase/Protease/Amylase [[place] 1 cap PO AC-TID 04/30/14 08/13/17 History 6,000 Units Capsule] RX: Losartan Potassium [Cozaar] 100 mg PO DAILY 12/14/14 08/13/17 History Omeprazole [PriLOSEC] 40 mg PO AC-BRKFST #14 capsule. 08/06/17 08/13/17 Rx RX: Hydrochlorothiazide 25 mg PO DAILY #30 tab 08/06/17 08/13/17 Rx [Hydrodiuril] RX: Simvastatin [Zocor] 40 mg PO HS #30 tab 08/06/17 08/13/17 Rx Allergies Allergy/AdvReac Type Severity Reaction Status Date / Time shellfish derived Allergy Severe Rash/Hives Verified 08/13/17 17:55 hydrocodone bitartrate Allergy Rash/Hives/ Verified 08/13/17 17:55 [From [place]] Weakness Physical Exam Vitals: Vital Signs Temp Pulse Pulse Resp BP BP Pulse Ox 08/14/17 07:30 97.8 F 76 18 143/80 96 08/14/17 04:00 97.8 F 81 16 122/82 93 L 08/13/17 23:36 97.9 F 81 18 153/96 97 08/13/17 23:30 81 16 08/13/17 21:28 97.6 F 78 16 153/87 95 08/13/17 20:25 97.6 F 82 18 127/86 97 08/13/17 19:28 92 148/92 97 08/13/17 18:58 80 138/87 96 08/13/17 17:53 97.7 F 101 H 18 155/93 99 Intake and Output 08/13/17 08/14/17 08/14/17 22:59 06:59 14:59 Other: Voiding Method Toilet Weight 94.801 kg - Constitutional General appearance: no acute distress - EENT Eyes: EOMI - Neck Neck: no lymphadenopathy - Respiratory Respiratory: bilateral: CTA - Cardiovascular Rhythm: regular Abnormal Heart Sounds: S3 Gallop - Neurologic Neurologic: CNII-XII intact - Musculoskeletal Musculoskeletal: gait normal Results CBC & Chem 7: 08/14/17 06:03 08/13/17 18:00 Labs: Abnormal Lab Results - Last 24 Hours (Table) 08/13/17 08/13/17 08/13/17 Range/Units 18:00 18:00 18:00 MCHC 37.3 H (31.0-37.0) g/dL Sodium 136 L (137-145) mmol/L Carbon Dioxide 19 L (22-30) mmol/L Glucose 379 H (74-99) mg/dL POC Glucose (mg/dL) (75-99) mg/dL Magnesium 1.5 L (1.6-2.3) mg/dL AST 16 L (17-59) U/L ALT 19 L (21-72) U/L Total Creatine Kinase (55-170) U/L Triglycerides (<150) mg/dL Cholesterol (<200) mg/dL HDL Cholesterol (40-60) mg/dL Lipase 331 H (23-300) U/L 08/13/17 08/14/17 08/14/17 Range/Units 23:30 06:03 08:07 MCHC (31.0-37.0) g/dL Sodium (137-145) mmol/L Carbon Dioxide (22-30) mmol/L Glucose (74-99) mg/dL POC Glucose (mg/dL) 199 H (75-99) mg/dL Magnesium (1.6-2.3) mg/dL AST (17-59) U/L ALT (21-72) U/L Total Creatine Kinase 54 L (55-170) U/L Triglycerides 2477 H (<150) mg/dL Cholesterol 217 H (<200) mg/dL HDL Cholesterol 37 L (40-60) mg/dL Lipase (23-300) U/L Thrombosis Risk Factor Assmnt - Choose All That Apply Each Factor Represents 1 point: Age 41-60 years Thrombosis Risk Factor Assessment Total Risk Factor Score: 1 Thrombosis Risk Factor Assessment Level: Low Risk Assessment and Plan (1) Chest pain Current Visit: Yes Status: Acute Code(s): R07.9 - CHEST PAIN, UNSPECIFIED SNOMED Code(s): 81215203 (2) Hypertension, poor control Current Visit: No Status: Acute Code(s): I10 - ESSENTIAL (PRIMARY) HYPERTENSION SNOMED Code(s): 798950553 (3) DM w/o complication type II Current Visit: No Status: Chronic Code(s): E11.9 - TYPE 2 DIABETES MELLITUS WITHOUT COMPLICATIONS SNOMED Code(s): 832839480 (4) Hypertriglyceridemia Current Visit: No Status: Chronic Code(s): E78.1 - PURE HYPERGLYCERIDEMIA SNOMED Code(s): 149703630 (5) Tobacco abuse Current Visit: No Status: Chronic Code(s): Z72.0 - TOBACCO USE SNOMED Code (s): 451343188 Plan: Rule out myocardial infraction. Stress test versus cardiac catheterization given his overall risk factors including diabetes, hypertriglyceridemia and tobacco abuse. Reconcile home medications. See orders otherwise. Time with Patient: Greater than 30
[2017-08-14 08:35] LABS: Creatine Kinase 50 U/L (55-170)
[2017-08-14] MEDS ORDERED: LOSARTAN 50 MG TAB PO SCH (09:00)
[2017-08-14] MEDS ORDERED: INSULN ASP PRT/INSULIN ASPART 100 UNIT/ML 10 ML VIAL SQ SCH (09:00)
[2017-08-14] MEDS ORDERED: ATORVASTATIN 80 MG TAB PO SCH (09:00)
[2017-08-14] MEDS ORDERED: ASPIRIN 325 MG TAB PO SCH (09:00)
[2017-08-14] MEDS ORDERED: HYDROCHLOROTHIAZIDE 25 MG TAB PO SCH (09:00)
[2017-08-14] MEDS ORDERED: DOBUTamine DRIP for NUC MED 250 MG in DEXTROSE/WATER 1 250ML.BAG IV ONE (09:42)
[2017-08-14] MEDS ORDERED: ASPIRIN 81 MG PO SCH (10:00)
[2017-08-14 11:53] VITALS: BP 166/105; PULSE 84; TEMP 97.7
[2017-08-14] MEDS: LIPASE 5,000/PROTEASE 17,000/AMYLASE 27,0000 PO SCH ×2 (12:08→12:58)
[2017-08-14 12:45] LABS: Glucose,Whole Blood 203 mg/dL (75-99)
[2017-08-14] MEDS: METOPROLOL TARTRATE 25 MG TAB PO SCH (12:58)
--- NOTE | 2017-08-14 13:21 | ECHOS ---
STRESS ECHOCARDIOGRAM DATE OF SERVICE: 08/14/2017 DOBUTAMINE STRESS ECHO INDICATIONS: Chest pain. MEDICATIONS: BASELINE HEART RATE: 76 BASELINE BLOOD PRESSURE: 144/81 MAXIMUM HEART RATE: 145 MAXIMUM BLOOD PRESSURE: 203/81 85% MPHR: 150 100% MPHR: 177 METS: MAXIMUM STAGE REACHED: TOTAL EXERCISE TIME: CLINICAL INFORMATION: Patient admitted for chest discomfort. He has underlying risk factors as well as underlying diabetes. He underwent a dobutamine stress echo. Baseline heart rate 76 beats per minute. Baseline blood pressure 144/81 mmHg. Baseline 12-lead ECG shows normal sinus rhythm with normal cardiac intervals. With incremental doses of dobutamine, no arrhythmias were noted and there was no ST- segment abnormalities noted. Baseline 2D echo images showed normal LV size and systolic function without segmental wall motion abnormalities. With dobutamine, there was stepwise augmentation of overall LV contractility without development of any wall motion abnormalities. At recovery, regional global LV systolic function remained normal. IMPRESSION: No ECG or echocardiographic evidence for ischemia. MMODL / IJN: [id number] /
--- NOTE | 2017-08-14 14:24 | P.CRDCN ---
History of Present Illness Consult date: 08/14/17 History of present illness: Mr. Leon is a pleasant 42-year-old male past medical history significant for diabetes mellitus, dyslipidemia, hypertension, pancreatitis and chronic tobacco abuse. He states he smokes approximately 1-1/2 packs per day. He denies history of coronary artery disease and has never seen a mechanical assembly for any reason. We've been asked to see him in consultation for complaints of chest pain. He c/o sharp pain to the mid-sternal region that radiates around to the mid back region and into the left shoulder. He states the pain occurs intermittently over the past week and is associated with shortness of breath, nausea, palpitations and dizziness one time. The pain is worse when he coughs and nothing specifically makes it better. He has been taking aleeve and excedrin all week with minimal relief. He was here last week with similar symptoms as well as an exacerbation of pancreatitis. At that time he had an echocardiogram and Doppler study which revealed preserved left ventricular systolic function with ejection fraction 55-60%. At the time of my exam he is resting comfortably in bed with no implants of ongoing chest pain. EKG on arrival reveals sinus mechanism with nonspecific T-wave abnormalities in the inferior leads. Telemetry tracings have been unremarkable. Chest x-ray was not performed. Laboratory data reviewed, cardiac enzymes negative 3 , potassium 4.8, lipase 331, triglycerides 2477, HDL 37 and LDL unable to be calculated. Current cardiac medications include simvastatin 40 mg daily, hydrochlorothiazide 25 mg daily, losartan 100 mg daily and fenofibrate 145 mg daily. Review of Systems At the time my exam: CONSTITUTIONAL: Denies fever. Denies chills. EYES: Denies blurred vision. Denies vision changes. Denies eye pain. EARS, NOSE, MOUTH & THROAT: Denies headache. Denies sore throat. Denies ear pain. CARDIOVASCULAR: Denies chest pain. Denies shortness of breath. Denies orthopnea. Denies PND. Denies palpitations. RESPIRATORY: Denies cough. GASTROINTESTINAL: Denies abdominal pain. Denies diarrhea. Denies constipation. Denies nausea. Denies vomiting. MUSCULOSKELETAL: Denies myalgias. INTEGUMENTARY: Denies pruitis. Denies rash. NEUROLOGIC: Denies numbness. Denies tingling. Denies weakness. PSYCHIATRIC: Denies anxiety. Denies depression. ENDOCRINE: Denies fatigue. Denies weight change. Denies polydipsia. Denies polyurina. GENITOURINARY: Denies burning, hematuria or urgency with micturation. HEMATOLOGIC: Denies history of anemia. Denies bleeding. Past Medical History Past Medical History: Diabetes Mellitus, Hyperlipidemia, Hypertension Additional Past Medical History / Comment(s): IDDM type II, high triglycerides, chronic pancreatitis, diverticular dx, esophageal stricture, dysphagia, gastirc ulcer, migraines. History of Any Multi-Drug Resistant Organisms: None Reported Past Surgical History: No Surgical Hx Reported Additional Past Surgical History / Comment(s): EGDs/dilatations, colonoscopy. Past Anesthesia/Blood Transfusion Reactions: No Reported Reaction Past Psychological History: No Psychological Hx Reported Additional Psychological History / Comment(s): Pt resides with his significant other. He is independent. Smoking Status: Current every day smoker Past Alcohol Use History: None Reported Additional Past Alcohol Use History / Comment(s): STARTED SMOKING AT AGE 11, SMOKES 1.5 PPD. PT WAS A HEAVY DRINKER X4 YEARS THEN QUITIN 2012 Past Drug Use History: None Reported Additional Drug Use History / Comment(s): TEENAGER SMOKED MARIJUANA NONE NOW. - Past Family History Father Family Medical History: Cancer, Diabetes Mellitus, Hyperlipidemia, Hypertension , Myocardial Infarction ([place]) Additional Family Medical History / Comment(s): SMOKER- HAD CANCER OF LARNYX, AT AGE 58. FATHER HAD MULTIPLE MIs AND HIS FIRST [place] WAS IN HIS LATE 40s OR 50s. Mother Family Medical History: Diabetes Mellitus, Dialysis, Hyperlipidemia, Hypertension, Renal Disease Medications and Allergies Home Medications Medication Instructions Recorded Confirmed Type Fenofibrate Nanocrystallized 145 mg PO HS 04/14/14 08/13/17 History [Tricor] Insulin Lispro Protamin/Lispro 30 unit SQ DAILY 04/14/14 08/13/17 History [humaLOG Mix 75-25 Kwikpen] Insulin Lispro Protamin/Lispro 45 unit SQ HS 04/14/14 08/13/17 History [humaLOG Mix 75-25 Kwikpen] Lipase/Protease/Amylase [Kaleb Dr 1 cap PO AC-TID 04/30/14 08/13/17 History 6,000 Units Capsule] Losartan Potassium [Cozaar] 100 mg PO DAILY 12/14/14 08/13/17 History Hydrochlorothiazide [Hydrodiuril] 25 mg PO DAILY #30 tab 08/06/17 08/13/17 Rx Omeprazole [PriLOSEC] 40 mg PO SHAYLA-[place]ERTON #14 capsule. 08/06/17 08/13/17 Rx Simvastatin [Zocor] 40 mg PO HS #30 tab 08/06/17 08/13/17 Rx Allergies Allergy/AdvReac Type Severity Reaction Status Date / Time shellfish derived Allergy Severe Rash/Hives Verified 08/13/17 17:55 hydrocodone bitartrate Allergy Rash/Hives/ Verified 08/13/17 17:55 [From [place]] Weakness Physical Exam Vitals: Vital Signs Temp Pulse Pulse Resp BP BP Pulse Ox 08/14/17 07:30 97.8 F 76 18 143/80 96 08/14/17 04:00 97.8 F 81 16 122/82 93 L 08/13/17 23:36 97.9 F 81 18 153/96 97 08/13/17 23:30 81 16 08/13/17 21:28 97.6 F 78 16 153/87 95 08/13/17 20:25 97.6 F 82 18 127/86 97 08/13/17 19:28 92 148/92 97 08/13/17 18:58 80 138/87 96 08/13/17 17:53 97.7 F 101 H 18 155/93 99 Intake and Output 08/13/17 08/14/17 08/14/17 22:59 06:59 14:59 Other: Voiding Method Toilet Weight 94.801 kg Blood pressure 143/80 heart rate 76 afebrile maintaining oxygen saturation on room air GENERAL: This is a 42-year-old male in no apparent distress at the time of my examination. HEENT: Head is atraumatic, normocephalic. Pupils are equal, round. Sclerae anicteric. Conjunctivae are clear. Mucous membranes of the mouth are moist. Neck is supple. There is no jugular venous distention. No carotid bruit is heard. LUNGS: Clear to auscultation no wheezes, rales or rhonchi. No chest wall tenderness is noted on palpation or with deep breathing. HEART: Regular rate and rhythm without murmurs, rubs or gallops. S1 and S2 heard. ABDOMEN: Soft, nontender. Bowel sounds are heard. No organomegaly noted. EXTREMITIES: No evidence of peripheral edema and no calf tenderness noted. VASCULAR: Radial and dorsalis pedis pulses palpated, no evidence of clubbing. NEUROLOGIC: Patient is awake, alert and oriented x3. Results 08/14/17 06:03 08/13/17 18:00 Cardiac Enzymes 08/13/17 08/13/17 08/13/17 Range/Units 18:00 18:00 18:00 WBC 9.2 (3.8-10.6) k/uL RBC 5.29 (4.30-5.90) m/uL Hgb 16.7 D (13.0-17.5) gm/dL Hct 43.4 (39.0-53.0) % MCV 82.0 (80.0-100.0) fL MCH 31.5 (25.0-35.0) pg MCHC 37.3 H (31.0-37.0) g/dL RDW 12.9 (11.5-15.5) % Plt Count 272 (150-450) k/uL Neutrophils % 55 % Lymphocytes % 31 % Monocytes % 4 % Eosinophils % 7 % Basophils % 1 % Neutrophils # 5.1 (1.3-7.7) k/uL Lymphocytes # 2.9 (1.0-4.8) k/uL Monocytes # 0.4 (0-1.0) k/uL Eosinophils # 0.6 (0-0.7) k/uL Basophils # 0.1 (0-0.2) k/uL Hyperchromasia Slight PT (9.0-12.0) sec INR (<1.2) APTT (22.0-30.0) sec Sodium 136 L (137-145) mmol/L Potassium 4.8 (3.5-5.1) mmol/L Chloride 102 (98-107) mmol/L Carbon Dioxide 19 L (22-30) mmol/L Anion Gap 15 mmol/L BUN 19 (9-20) mg/dL Creatinine 0.90 (0.66-1.25) mg/dL Est GFR (CKD-EPI)AfAm >90 (>60 ml/min/1.73 sqM) Est GFR (CKD-EPI)NonAf >90 (>60 ml/min/1.73 sqM) Glucose 379 H (74-99) mg/dL POC Glucose (mg/dL) (75-99) mg/dL POC Glu Reinforcing Bar Setter ID Calcium 9.3 (8.4-10.2) mg/dL Magnesium 1.5 L (1.6-2.3) mg/dL Total Bilirubin 0.4 (0.2-1.3) mg/dL AST 16 L (17-59) U/L ALT 19 L (21-72) U/L Alkaline Phosphatase 112 (38-126) U/L Total Creatine Kinase 68 (55-170) U/L CK-MB (CK-2) 0.6 (0.0-2.4) ng/mL CK-MB (CK-2) Rel Index 0.9 Troponin I <0.012 (0.000-0.034) ng/mL Total Protein 7.1 (6.3-8.2) g/dL Albumin 4.0 (3.5-5.0) g/dL Triglycerides (<150) mg/dL Cholesterol (<200) mg/dL LDL Cholesterol, Calc (0-99) mg/dL HDL Cholesterol (40-60) mg/dL Lipase (23-300) U/L 08/13/17 08/13/17 08/13/17 Range/Units 18:00 18:00 22:07 WBC (3.8-10.6) k/uL RBC (4.30-5.90) m/uL Hgb (13.0-17.5) gm/dL Hct (39.0-53.0) % MCV (80.0-100.0) fL MCH (25.0-35.0) pg MCHC (31.0-37.0) g/dL RDW (11.5-15.5) % Plt Count (150-450) k/uL Neutrophils % % Lymphocytes % % Monocytes % % Eosinophils % % Basophils % % Neutrophils # (1.3-7.7) k/uL Lymphocytes # (1.0-4.8) k/uL Monocytes # (0-1.0) k/uL Eosinophils # (0-0.7) k/uL Basophils # (0-0.2) k/uL Hyperchromasia PT 9.8 (9.0-12.0) sec INR 1.0 (<1.2) APTT 23.2 23.1 (22.0-30.0) sec Sodium (137-145) mmol/L Potassium (3.5-5.1) mmol/L Chloride (98-107) mmol/L Carbon Dioxide (22-30) mmol/L Anion Gap mmol/L BUN (9-20) mg/dL Creatinine (0.66-1.25) mg/dL Est GFR (CKD-EPI)AfAm (>60 ml/min/1.73 sqM) Est GFR (CKD-EPI)NonAf (>60 ml/min/1.73 sqM) Glucose (74-99) mg/dL POC Glucose (mg/dL) (75-99) mg/dL POC Glu Reinforcing Bar Setter ID Calcium (8.4-10.2) mg/dL Magnesium (1.6-2.3) mg/dL Total Bilirubin (0.2-1.3) mg/dL AST (17-59) U/L ALT (21-72) U/L Alkaline Phosphatase (38-126) U/L Total Creatine Kinase (55-170) U/L CK-MB (CK-2) (0.0-2.4) ng/mL CK-MB (CK-2) Rel Index Troponin I (0.000-0.034) ng/mL Total Protein (6.3-8.2) g/dL Albumin (3.5-5.0) g/dL Triglycerides (<150) mg/dL Cholesterol (<200) mg/dL LDL Cholesterol, Calc (0-99) mg/dL HDL Cholesterol (40-60) mg/dL Lipase 331 H (23-300) U/L 08/13/17 08/14/17 08/14/17 Range/Units 23:30 06:03 06:03 WBC (3.8-10.6) k/uL RBC (4.30-5.90) m/uL Hgb (13.0-17.5) gm/dL Hct (39.0-53.0) % MCV (80.0-100.0) fL MCH (25.0-35.0) pg MCHC (31.0-37.0) g/dL RDW (11.5-15.5) % Plt Count 248 (150-450) k/uL Neutrophils % % Lymphocytes % % Monocytes % % Eosinophils % % Basophils % % Neutrophils # (1.3-7.7) k/uL Lymphocytes # (1.0-4.8) k/uL Monocytes # (0-1.0) k/uL Eosinophils # (0-0.7) k/uL Basophils # (0-0.2) k/uL Hyperchromasia PT (9.0-12.0) sec INR (<1.2) APTT (22.0-30.0) sec Sodium (137-145) mmol/L Potassium (3.5-5.1) mmol/L Chloride (98-107) mmol/L Carbon Dioxide (22-30) mmol/L Anion Gap mmol/L BUN (9-20) mg/dL Creatinine (0.66-1.25) mg/dL Est GFR (CKD-EPI)AfAm (>60 ml/min/1.73 sqM) Est GFR (CKD-EPI)NonAf (>60 ml/min/1.73 sqM) Glucose (74-99) mg/dL POC Glucose (mg/dL) (75-99) mg/dL POC Glu Reinforcing Bar Setter ID Calcium (8.4-10.2) mg/dL Magnesium (1.6-2.3) mg/dL Total Bilirubin (0.2-1.3) mg/dL AST (17-59) U/L ALT (21-72) U/L Alkaline Phosphatase (38-126) U/L Total Creatine Kinase 54 L (55-170) U/L CK-MB (CK-2) 0.6 0.5 (0.0-2.4) ng/mL CK-MB (CK-2) Rel Index 1.1 Troponin I <0.012 <0.012 (0.000-0.034) ng/mL Total Protein (6.3-8.2) g/dL Albumin (3.5-5.0) g/dL Triglycerides (<150) mg/dL Cholesterol (<200) mg/dL LDL Cholesterol, Calc (0-99) mg/dL HDL Cholesterol (40-60) mg/dL Lipase (23-300) U/L 08/14/17 08/14/17 08/14/17 Range/Units 06:03 06:03 08:07 WBC (3.8-10.6) k/uL RBC (4.30-5.90) m/uL Hgb (13.0-17.5) gm/dL Hct (39.0-53.0) % MCV (80.0-100.0) fL MCH (25.0-35.0) pg MCHC (31.0-37.0) g/dL RDW (11.5-15.5) % Plt Count (150-450) k/uL Neutrophils % % Lymphocytes % % Monocytes % % Eosinophils % % Basophils % % Neutrophils # (1.3-7.7) k/uL Lymphocytes # (1.0-4.8) k/uL Monocytes # (0-1.0) k/uL Eosinophils # (0-0.7) k/uL Basophils # (0-0.2) k/uL Hyperchromasia PT (9.0-12.0) sec INR (<1.2) APTT 26.0 (22.0-30.0) sec Sodium (137-145) mmol/L Potassium (3.5-5.1) mmol/L Chloride (98-107) mmol/L Carbon Dioxide (22-30) mmol/L Anion Gap mmol/L BUN (9-20) mg/dL Creatinine (0.66-1.25) mg/dL Est GFR (CKD-EPI)AfAm (>60 ml/min/1.73 sqM) Est GFR (CKD-EPI)NonAf (>60 ml/min/1.73 sqM) Glucose (74-99) mg/dL POC Glucose (mg/dL) 199 H (75-99) mg/dL POC Glu Reinforcing Bar Setter ID Radha Drake Calcium (8.4-10.2) mg/dL Magnesium (1.6-2.3) mg/dL Total Bilirubin (0.2-1.3) mg/dL AST (17-59) U/L ALT (21-72) U/L Alkaline Phosphatase (38-126) U/L Total Creatine Kinase (55-170) U/L CK-MB (CK-2) (0.0-2.4) ng/mL CK-MB (CK-2) Rel Index Troponin I (0.000-0.034) ng/mL Total Protein (6.3-8.2) g/dL Albumin (3.5-5.0) g/dL Triglycerides 2477 H (<150) mg/dL Cholesterol 217 H (<200) mg/dL LDL Cholesterol, Calc (0-99) mg/dL HDL Cholesterol 37 L (40-60) mg/dL Lipase (23-300) U/L Coagulation 08/13/17 08/13/17 08/14/17 Range/Units 18:00 22:07 06:03 PT 9.8 (9.0-12.0) sec APTT 23.2 23.1 26.0 (22.0-30.0) sec Lipids 08/14/17 Range/Units 06:03 Triglycerides 2477 H (<150) mg/dL Cholesterol 217 H (<200) mg/dL HDL Cholesterol 37 L (40-60) mg/dL CBC 08/13/17 08/14/17 Range/Units 18:00 06:03 WBC 9.2 (3.8-10.6) k/uL RBC 5.29 (4.30-5.90) m/uL Hgb 16.7 D (13.0-17.5) gm/dL Hct 43.4 (39.0-53.0) % Plt Count 272 248 (150-450) k/uL Comprehensive Metabolic Panel 08/13/17 Range/Units 18:00 Sodium 136 L (137-145) mmol/L Potassium 4.8 (3.5-5.1) mmol/L Chloride 102 (98-107) mmol/L Carbon Dioxide 19 L (22-30) mmol/L BUN 19 (9-20) mg/dL Creatinine 0.90 (0.66-1.25) mg/dL Glucose 379 H (74-99) mg/dL Calcium 9.3 (8.4-10.2) mg/dL AST 16 L (17-59) U/L ALT 19 L (21-72) U/L Alkaline Phosphatase 112 (38-126) U/L Total Protein 7.1 (6.3-8.2) g/dL Albumin 4.0 (3.5-5.0) g/dL Current Medications Generic Name Dose Route Start Last Admin Trade Name Freq PRN Reason Stop Dose Admin Acetaminophen 650 mg 08/14/17 08:08 08/14/17 08:13 Tylenol Tab PO 650 mg Q6HR PRN Administration Fever and/ or Pain Lipase/Protease/Amylase 1 each 08/14/17 07:[address] 5,000 Units Capsule PO AC-TID [facility] Aspirin 325 mg 08/14/17 09:00 Aspirin PO DAILY [facility] Atorvastatin Calcium 20 mg 08/13/17 22:30 08/13/17 23:27 Lipitor PO 20 mg HS IL[facility] Administration Fenofibrate 160 mg 08/13/17 22:30 08/13/17 23:27 Lofibra PO 160 mg HS [facility] Administration Heparin Sodium (Porcine) 0 unit 08/13/17 20:11 Heparin IV Q6HR PRN Low PTT Protocol Hydrochlorothiazide 25 mg 08/14/17 09:00 Hydrodiuril PO DAILY [facility] Heparin Sodium/Sodium Chloride 500 mls @ 20 mls/hr 08/13/17 20:15 08/13/17 23 :48 25,000 unit/ Sodium Chloride IV 10.549 units/kg/hr .Q24H ILANA 20 mls/hr Protocol Administration 10.549 UNITS/KG/HR Sodium Chloride 1,000 mls @ 100 mls/hr 08/13/17 20:15 Saline 0.9% IV .Q10H [facility] Insulin Aspart 30 unit 08/14/17 09:00 Novolog Mix 70-30 Vial SQ DAILY [facility] Insulin Aspart 45 unit 08/13/17 22:30 08/13/17 23:25 Novolog Mix 70-30 Vial SQ 45 unit HS [facility] Administration Losartan Potassium 100 mg 08/14/17 09:00 Cozaar PO DAILY [facility] Metoprolol Tartrate 25 mg 08/13/17 21:00 08/13/17 23:45 Lopressor PO Not Given BID [facility] Morphine Sulfate 4 mg 08/13/17 20:11 Morphine Sulfate (Inj) IV Q5M PRN Chest Pain Nitroglycerin 0.4 mg 08/13/17 20:11 Nitrostat SUBLINGUAL Q5M PRN Chest Pain Pantoprazole Sodium 40 mg 08/14/17 07:30 Protonix PO AC-BRKFST IL[facility] Intake and Output 08/13/17 08/14/17 08/14/17 22:59 06:59 14:59 Other: Voiding Method Toilet Weight 94.801 kg 08/14/17 06:03 08/13/17 18:00 Assessment and Plan Assessment: ASSESSMENT 1. Chest pain atypical. An acute coronary event has been ruled out with no EKG evidence of acute ischemia and negative cardiac enzymes. 2. Dyslipidemia 3. Severe hypertriglyceridemia 4. Hypertension 5. Chronic pancreatitis 6. Chronic tobacco abuse PLAN Recommend proceeding with a dobutamine stress echocardiogram to assess for stress induced cardiac ischemia. Smoking cessation discussed. Lifestyle diet modifications are recommended for decreasing cholesterol and triglycerides. If stress test is negative he is stable from a cardiac perspective. Follow-up with Dr. Grant in 4 weeks. Thank you kindly for this consultation. Nurse Practitioner note has been reviewed, I agree with a documented findings and plan of care. Patient was seen and examined.
[2017-08-14 17:22] LABS: Hemoglobin A1C 9.3 % (4.0-6.0)
== END 2017-08-14 14:10 | disposition home or self-care (01) ==
LOC: EC 17:51 → 3OBS 20:14
PROVIDERS: ADMIT Family Medicine; ATTEND Family Medicine
DX: R07.89 Other chest pain (principal); I10 Essential (primary) hypertension; E11.9 Type 2 diabetes mellitus without complications; K86.1 Other chronic pancreatitis; K73.9 Chronic hepatitis, unspecified; E78.5 Hyperlipidemia, unspecified; E78.1 Pure hyperglyceridemia; F17.210 Nicotine dependence, cigarettes, uncomplicated; K57.90 Diverticulosis of intestine, part unspecified, without perforation or abscess without bleeding; G43.909 Migraine, unspecified, not intractable, without status migrainosus; K22.2 Esophageal obstruction; R42 Dizziness and giddiness; R06.02 Shortness of breath; R00.2 Palpitations; R52 Pain, unspecified; M79.606 Pain in leg, unspecified; Z79.4 Long term (current) use of insulin; Z79.899 Other long term (current) drug therapy; Z88.5 Allergy status to narcotic agent; Z91.013 Allergy to seafood; Z87.11 Personal history of peptic ulcer disease; Z83.3 Family history of diabetes mellitus; Z80.2 Family history of malignant neoplasm of other respiratory and intrathoracic organs; Z82.49 Family history of ischemic heart disease and other diseases of the circulatory system; Z81.2 Family history of tobacco abuse and dependence; Z84.1 Family history of disorders of kidney and ureter; Z77.22 Contact with and (suspected) exposure to environmental tobacco smoke (acute) (chronic)
CPT/HCPCS: 99291 ×2; 96361 ×2; 96365; 96366; 96375; 36415; 93005; 93017; 93350; 80061; 80053; 82550 ×2; 82553 ×2; 83690; 83735; 84484 ×2; 85025; 85049; 85610; 85730 ×2; 83036; G0378 ×2; J1644 ×2; J1250; J2270

== ENCOUNTER 2018-05-13 23:33 | Emergency (ER) | payer BC, OTHER ==
[2018-05-14 00:04] LABS: Glucose,Whole Blood 588 mg/dL (75-99)
[2018-05-14] MEDS ORDERED: SODIUM CHLORIDE 0.9% 2,000 ML IV STA ×2 (00:37→02:33)
--- NOTE | 2018-05-14 00:53 | ED ---
General Adult HPI - General Chief complaint: Recheck/Abnormal Lab/Rx Stated complaint: Hyperglycemia Time Seen by Provider: 05/14/18 00:37 Source: patient, RN notes reviewed Mode of arrival: wheelchair Limitations: no limitations - History of Present Illness Initial comments: 42-year-old male with a past medical history of IDDM type II, hyperlipidemia, hypertension, chronic pancreatitis presents to the emergency department for a chief complaint of high blood sugar. Patient states he checked his blood sugar at home and it was 550. Patient states he only has long-acting insulin and does not have any short acting insulin. Patient states his blood pressure sugar has never been this high before. Patient does admit to dental abscess. He states this has been going on for the past few days that has not seen a dentist. He denies fevers or chills. Patient has no other complaints at this time including shortness of breath, chest pain, abdominal pain, nausea or vomiting, headache, or visual changes. - Related Data Home Medications Medication Instructions Recorded Confirmed Fenofibrate Nanocrystallized 145 mg PO HS 04/14/14 08/13/17 [Tricor] Insulin Lispro Protamin/Lispro 30 unit SQ DAILY 04/14/14 08/13/17 [humaLOG Mix 75-25 Kwikpen] Insulin Lispro Protamin/Lispro 45 unit SQ HS 04/14/14 08/13/17 [humaLOG Mix 75-25 Kwikpen] Lipase/Protease/Amylase [Kaleb Pettit 1 cap PO AC-TID 04/30/14 08/13/17 6,000 Units Capsule] Losartan Potassium [Cozaar] 100 mg PO DAILY 12/14/14 08/13/17 Previous Rx's Medication Instructions Recorded Hydrochlorothiazide [Hydrodiuril] 25 mg PO DAILY #30 tab 08/06/17 Omeprazole [PriLOSEC] 40 mg PO AC-BRKFST #14 capsule. 08/06/17 Simvastatin [Zocor] 40 mg PO HS #30 tab 08/06/17 Penicillin V Potassium [Pen Vee K] 500 mg PO Q6H 10 Days tablet 05/14/18 Allergies Allergy/AdvReac Type Severity Reaction Status Date / Time shellfish derived Allergy Severe Rash/Hives Verified 08/13/17 17:55 hydrocodone bitartrate Allergy Rash/Hives/ Verified 08/13/17 17:55 [From [place]] Weakness Review of Systems ROS Statement: Those systems with pertinent positive or pertinent negative responses have been documented in the HPI. ROS Other: All systems not noted in ROS Statement are negative. Past Medical History Past Medical History: Diabetes Mellitus, Hyperlipidemia, Hypertension Additional Past Medical History / Comment(s): IDDM type II, high triglycerides, chronic pancreatitis, diverticular dx, esophageal stricture, dysphagia, gastirc ulcer, migraines. History of Any Multi-Drug Resistant Organisms: None Reported Past Surgical History: No Surgical Hx Reported Additional Past Surgical History / Comment(s): EGDs/dilatations, colonoscopy. Past Anesthesia/Blood Transfusion Reactions: No Reported Reaction Past Psychological History: No Psychological Hx Reported Smoking Status: Current every day smoker Past Alcohol Use History: None Reported Past Drug Use History: None Reported - Past Family History Father Family Medical History: Cancer, Diabetes Mellitus, Hyperlipidemia, Hypertension , Myocardial Infarction ([place]) Additional Family Medical History / Comment(s): SMOKER- HAD CANCER OF LARNYX, AT AGE 58. FATHER HAD MULTIPLE MIs AND HIS FIRST GA WAS IN HIS LATE 40s OR 50s. Mother Family Medical History: Diabetes Mellitus, Dialysis, Hyperlipidemia, Hypertension, Renal Disease General Exam Limitations: no limitations General appearance: alert, in no apparent distress Head exam: Present: atraumatic, normocephalic, normal inspection Eye exam: Present: normal appearance, PERRL, EOMI. Absent: scleral icterus, conjunctival injection, periorbital swelling ENT exam: Present: mucous membranes moist, TM's normal bilaterally, normal external ear exam, other (Patient able to open mouth without difficulty, no sublingual swelling). Absent: normal oropharynx (Patient has an abscess noted of tooth 30. Tenderness to palpation.) Neck exam: Present: normal inspection, full ROM. Absent: tenderness, meningismus, lymphadenopathy Respiratory exam: Present: normal lung sounds bilaterally. Absent: respiratory distress, wheezes, rales, rhonchi, stridor Cardiovascular Exam: Present: regular rate, normal rhythm, normal heart sounds. Absent: systolic murmur, diastolic murmur, rubs, gallop, clicks GI/Abdominal exam: Present: soft, normal bowel sounds. Absent: distended, tenderness, guarding, rebound, rigid Neurological exam: Present: alert, oriented X3, CN II-XII intact Psychiatric exam: Present: normal affect, normal mood Course Vital Signs 05/13/18 05/14/18 05/14/18 23:45 01:30 02:12 Temperature 97.7 F Pulse Rate 81 69 71 Respiratory 16 18 16 Rate Blood Pressure 161/85 146/100 131/84 O2 Sat by Pulse 98 97 98 Oximetry Medical Decision Making - Medical Decision Making 42-year-old male presents to the emergency department for a chief complaint of hyperglycemia. Patient states his glucoses in the 500s. Patient takes long- acting insulin at home. Glucose 578 upon arrival. Patient given 2 L of fluids and 8 units of NovoLog subcu which then decreased glucoseto 472. Patient given 2 more units of fluids with then decreased glucose 2-80. Patient's hyperglycemia is likely due to the dental abscess noted to tooth 30. This was incised and drained with an 18-gauge needle,. Purulent material expelled. Patient given a dose of Unasyn and clindamycin here in the emergency department. Discussed increasing long-acting insulin by about 10%. Discussed following up with primary care for this as well as hyperkalemia for repeat lab work. Discussed returning here patient has any worsening symptoms. Patient will take penicillin as directed and follow-up with dentist. - Lab Data Result diagrams: 05/14/18 00:56 05/14/18 00:56 Lab Results 05/13/18 05/14/18 05/14/18 Range/Units 23:47 00:56 00:56 WBC 9.6 (3.8-10.6) k/uL RBC 4.54 (4.30-5.90) m/uL Hgb 13.8 (13.0-17.5) gm/dL Hct 40.5 (39.0-53.0) % MCV 89.3 (80.0-100.0) fL MCH 30.5 (25.0-35.0) pg MCHC 34.2 (31.0-37.0) g/dL RDW 13.0 (11.5-15.5) % Plt Count 251 (150-450) k/uL Neutrophils % 53 % Lymphocytes % 35 % Monocytes % 4 % Eosinophils % 6 % Basophils % 1 % Neutrophils # 5.1 (1.3-7.7) k/uL Lymphocytes # 3.4 (1.0-4.8) k/uL Monocytes # 0.4 (0-1.0) k/uL Eosinophils # 0.5 (0-0.7) k/uL Basophils # 0.1 (0-0.2) k/uL Sodium 133 L (137-145) mmol/L Potassium 5.3 H (3.5-5.1) mmol/L Chloride 102 (98-107) mmol/L Carbon Dioxide 21 L (22-30) mmol/L Anion Gap 10 mmol/L BUN 19 (9-20) mg/dL Creatinine 0.94 (0.66-1.25) mg/dL Est GFR (CKD-EPI)AfAm >90 (>60 ml/min/1.73 sqM) Est GFR (CKD-EPI)NonAf >90 (>60 ml/min/1.73 sqM) Glucose 578 H* (74-99) mg/dL POC Glucose (mg/dL) 588 H (75-99) mg/dL POC Glu Psychological Anthropologist ID Naheed, Celena Plasma Lactic Acid James (0.7-2.0) mmol/L Calcium 10.0 (8.4-10.2) mg/dL Total Bilirubin 0.3 (0.2-1.3) mg/dL AST 16 L (17-59) U/L ALT 22 (21-72) U/L Alkaline Phosphatase 96 (38-126) U/L Total Protein 7.1 (6.3-8.2) g/dL Albumin 4.4 (3.5-5.0) g/dL Urine Color Urine Appearance (Clear) Urine pH (5.0-8.0) Ur Specific Bronson (1.001-1.035) Urine Protein (Negative) Urine Glucose (UA) (Negative) Urine Ketones (Negative) Urine Blood (Negative) Urine Nitrite (Negative) Urine Bilirubin (Negative) Urine Urobilinogen (<2.0) mg/dL Ur Leukocyte Esterase (Negative) Acetone, Qual Negative (Negative) 05/14/18 05/14/18 05/14/18 Range/Units 01:00 01:10 01:24 WBC (3.8-10.6) k/uL RBC (4.30-5.90) m/uL Hgb (13.0-17.5) gm/dL Hct (39.0-53.0) % MCV (80.0-100.0) fL MCH (25.0-35.0) pg MCHC (31.0-37.0) g/dL RDW (11.5-15.5) % Plt Count (150-450) k/uL Neutrophils % % Lymphocytes % % Monocytes % % Eosinophils % % Basophils % % Neutrophils # (1.3-7.7) k/uL Lymphocytes # (1.0-4.8) k/uL Monocytes # (0-1.0) k/uL Eosinophils # (0-0.7) k/uL Basophils # (0-0.2) k/uL Sodium (137-145) mmol/L Potassium (3.5-5.1) mmol/L Chloride (98-107) mmol/L Carbon Dioxide (22-30) mmol/L Anion Gap mmol/L BUN (9-20) mg/dL Creatinine (0.66-1.25) mg/dL Est GFR (CKD-EPI)AfAm (>60 ml/min/1.73 sqM) Est GFR (CKD-EPI)NonAf (>60 ml/min/1.73 sqM) Glucose (74-99) mg/dL POC Glucose (mg/dL) 557 H (75-99) mg/dL POC Glu Psychological Anthropologist Anneliese Finley Plasma Lactic Acid James 1.5 (0.7-2.0) mmol/L Calcium (8.4-10.2) mg/dL Total Bilirubin (0.2-1.3) mg/dL AST (17-59) U/L ALT (21-72) U/L Alkaline Phosphatase (38-126) U/L Total Protein (6.3-8.2) g/dL Albumin (3.5-5.0) g/dL Urine Color Light Yellow Urine Appearance Clear (Clear) Urine pH 5.5 (5.0-8.0) Ur Specific Bronson 1.023 (1.001-1.035) Urine Protein Negative (Negative) Urine Glucose (UA) 4+ H (Negative) Urine Ketones Negative (Negative) Urine Blood Negative (Negative) Urine Nitrite Negative (Negative) Urine Bilirubin Negative (Negative) Urine Urobilinogen <2.0 (<2.0) mg/dL Ur Leukocyte Esterase Negative (Negative) Acetone, Qual (Negative) 05/14/18 Range/Units 02:11 WBC (3.8-10.6) k/uL RBC (4.30-5.90) m/uL Hgb (13.0-17.5) gm/dL Hct (39.0-53.0) % MCV (80.0-100.0) fL MCH (25.0-35.0) pg MCHC (31.0-37.0) g/dL RDW (11.5-15.5) % Plt Count (150-450) k/uL Neutrophils % % Lymphocytes % % Monocytes % % Eosinophils % % Basophils % % Neutrophils # (1.3-7.7) k/uL Lymphocytes # (1.0-4.8) k/uL Monocytes # (0-1.0) k/uL Eosinophils # (0-0.7) k/uL Basophils # (0-0.2) k/uL Sodium (137-145) mmol/L Potassium (3.5-5.1) mmol/L Chloride (98-107) mmol/L Carbon Dioxide (22-30) mmol/L Anion Gap mmol/L BUN (9-20) mg/dL Creatinine (0.66-1.25) mg/dL Est GFR (CKD-EPI)AfAm (>60 ml/min/1.73 sqM) Est GFR (CKD-EPI)NonAf (>60 ml/min/1.73 sqM) Glucose (74-99) mg/dL POC Glucose (mg/dL) 472 H (75-99) mg/dL POC Glu Psychological Anthropologist ID Marija Bolanos Plasma Lactic Acid James (0.7-2.0) mmol/L Calcium (8.4-10.2) mg/dL Total Bilirubin (0.2-1.3) mg/dL AST (17-59) U/L ALT (21-72) U/L Alkaline Phosphatase (38-126) U/L Total Protein (6.3-8.2) g/dL Albumin (3.5-5.0) g/dL Urine Color Urine Appearance (Clear) Urine pH (5.0-8.0) Ur Specific Bronson (1.001-1.035) Urine Protein (Negative) Urine Glucose (UA) (Negative) Urine Ketones (Negative) Urine Blood (Negative) Urine Nitrite (Negative) Urine Bilirubin (Negative) Urine Urobilinogen (<2.0) mg/dL Ur Leukocyte Esterase (Negative) Acetone, Qual (Negative) Disposition Clinical Impression: Hyperglycemia, Dental abscess Disposition: HOME SELF-CARE Condition: Good Instructions: Dental Abscess (ED) Additional Instructions: Follow up with primary care and dentist. Return to the emergency department if you have any worsening symptoms. [facility]: [address] [place] [id number] Prescriptions: Penicillin V Potassium [Pen Vee K] 500 mg PO Q6H 10 Days tablet Is patient prescribed a controlled substance at d/c from ED?: No Referrals: Shahid Larose MD [Primary Care Provider] - 1-2 days Time of Disposition: 04:36
[2018-05-14] MEDS ORDERED: INSULIN ASPART 100 UNIT/ML 1 ML 10 ML VIAL SQ ONE (01:03)
[2018-05-14 01:11] LABS: Glucose,Whole Blood 557 mg/dL (75-99)
[2018-05-14] MEDS ORDERED: AMPICILLIN-SULBACTAM 3 GM in SODIUM CHLORIDE 0.9% 100 ML IVPB ONE (01:30)
[2018-05-14 01:32] LABS: Basophils # (A) 0.1 k/uL (0-0.2); Basophils % (A) 1 %; Eosinophils # (A) 0.5 k/uL (0-0.7); Eosinophils % (A) 6 %; HCT 40.5 % (39.0-53.0); HGB 13.8 gm/dL (13.0-17.5); Lymphocytes # (A) 3.4 k/uL (1.0-4.8); Lymphocytes % (A) 35 %; MCH 30.5 pg (25.0-35.0); MCHC 34.2 g/dL (31.0-37.0); MCV 89.3 fL (80.0-100.0); Mean Platelet Volume 6.6; Monocytes # (A) 0.4 k/uL (0-1.0); Monocytes % (A) 4 %; Neutrophils # (A) 5.1 k/uL (1.3-7.7); Neutrophils % (A) 53 %; Platelet Count 251 k/uL (150-450); RBC 4.54 m/uL (4.30-5.90); WBC 9.6 k/uL (3.8-10.6)
[2018-05-14 01:37] LABS: Appearance,Urine Clear (Clear); Bilirubin,Urine Negative (Negative); Blood,Urine Negative (Negative); Color,Urine Light Yellow; Glucose,Urine (UA) 4+ (Negative); Ketones,Urine Negative (Negative); Leukocyte Esterase,Urine Negative (Negative); Nitrite,Urine Negative (Negative); PH, Urine 5.5 (5.0-8.0); Protein,Urine Negative (Negative); Specific Gravity,Urine 1.023 (1.001-1.035); Urobilinogen,Urine <2.0 mg/dL (<2.0)
[2018-05-14 01:43] LABS: ALT 22 U/L (21-72); AST 16 U/L (17-59); Albumin 4.4 g/dL (3.5-5.0); Alkaline Phosphatase 96 U/L (38-126); Anion Gap 10 mmol/L; Blood Urea Nitrogen 19 mg/dL (9-20); Carbon Dioxide 21 mmol/L (22-30); Chloride 102 mmol/L (98-107); Potassium 5.3 mmol/L (3.5-5.1); Sodium 133 mmol/L (137-145); Total Bilirubin 0.3 mg/dL (0.2-1.3); Total Protein 7.1 g/dL (6.3-8.2)
[2018-05-14 01:56] LABS: Glucose 578 mg/dL (74-99)
[2018-05-14 02:22] LABS: Glucose,Whole Blood 472 mg/dL (75-99)
[2018-05-14] MEDS ORDERED: CLINDAMYCIN 600 MG in DEXTROSE 5% IN WATER 50 ML IVPB STA ×2 (02:31)
[2018-05-14] MEDS ORDERED: ENALAPRILAT 1.25 MG/ML 1 ML VIAL IVP STA (04:56)
[2018-05-14 05:55] VITALS: BP 135/99; PULSE 78; RESP 18; TEMP 98
[2018-05-14 10:42] LABS: Glucose,Whole Blood 289 mg/dL (75-99)
== END 2018-05-14 05:54 | disposition home or self-care (01) ==
LOC: EC 23:33
DX: E11.65 Type 2 diabetes mellitus with hyperglycemia (principal); K04.7 Periapical abscess without sinus; E87.5 Hyperkalemia; E78.5 Hyperlipidemia, unspecified; I10 Essential (primary) hypertension; F17.200 Nicotine dependence, unspecified, uncomplicated; Z87.19 Personal history of other diseases of the digestive system; Z98.890 Other specified postprocedural states; Z79.4 Long term (current) use of insulin; Z79.899 Other long term (current) drug therapy; Z88.5 Allergy status to narcotic agent; Z91.013 Allergy to seafood
CPT/HCPCS: 99283; 41800; 96365; 96367; 96375; 96361 ×2; 36415 ×2; 80053; 82009; 83605; 85025; 81003; 87040; J0295

== ENCOUNTER 2019-02-28 22:41 | Observation (INO) | payer BC, OTHER ==
--- NOTE | 2019-02-28 23:08 | ED ---
Chest Pain HPI - General Chief Complaint: Chest Pain Stated Complaint: Chest Pain Time Seen by Provider: 02/28/19 22:54 Source: patient Mode of arrival: ambulatory Limitations: no limitations - History of Present Illness Initial Comments: This patient is a 43-year-old man who complains of having substernal chest pain that is been going on since approximately 2 PM today. The patient states that it started while he was working on his truck and he thought that he had strained a muscle. The patient states that he tried lying down at home and then when he got up to get ready for work the pain was still there. Patient's family persuaded him to be seen here. He describes as aching, constant. He has not noted worsening or relieving factors. It is moderate to severe. He is currently declining analgesics. Denies anginal symptoms. MD Complaint: chest pain Onset/Timin -: hour(s) Onset: other (Patient was working on his truck) Pain Location: substernal Pain Radiation: LUE (Shoulder) Severity: moderate Quality: aching Consistency: constant Improves With: nothing Worsens With: nothing Treatments Prior to Arrival: none - Related Data Home Medications Medication Instructions Recorded Confirmed Fenofibrate Nanocrystallized 145 mg PO HS 04/14/14 02/28/19 [Tricor] Lipase/Protease/Amylase [Creon Dr 1 cap PO AC-BID 04/30/14 02/28/19 6,000 Units Capsule] Losartan Potassium [Cozaar] 100 mg PO DAILY 12/14/14 02/28/19 Insulin Degludec [Tresiba 64 units SQ HS 02/28/19 02/28/19 Flextouch U-200] Pioglitazone [Actos] 30 mg PO DAILY 02/28/19 02/28/19 Previous Rx's Medication Instructions Recorded Hydrochlorothiazide [Hydrodiuril] 25 mg PO DAILY #30 tab 08/06/17 Simvastatin [Zocor] 40 mg PO HS #30 tab 08/06/17 Allergies Allergy/AdvReac Type Severity Reaction Status Date / Time shellfish derived Allergy Severe Rash/Hives Verified 02/28/19 23:15 hydrocodone bitartrate Allergy Rash/Hives/ Verified 02/28/19 23:15 [From [place]] Weakness Review of Systems ROS Statement: Those systems with pertinent positive or pertinent negative responses have been documented in the HPI. ROS Other: All systems not noted in ROS Statement are negative. Constitutional: Denies: fever, chills Respiratory: Denies: cough, dyspnea Cardiovascular: Reports: chest pain. 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 - EKG Results: EKG: interpreted by ERMD, sinus rhythm (Rate 80 bpm), normal axis, normal QRS, normal ST/T Past Medical History Past Medical History: Diabetes Mellitus, Hyperlipidemia, Hypertension Additional Past Medical History / Comment(s): IDDM type II, high triglycerides, chronic pancreatitis, diverticular dx, esophageal stricture, dysphagia, gastirc ulcer, migraines. History of Any Multi-Drug Resistant Organisms: None Reported Past Surgical History: No Surgical Hx Reported Additional Past Surgical History / Comment(s): EGDs/dilatations, colonoscopy. Past Anesthesia/Blood Transfusion Reactions: No Reported Reaction Past Psychological History: No Psychological Hx Reported Smoking Status: Current every day smoker Past Alcohol Use History: None Reported Past Drug Use History: None Reported - Past Family History Father Family Medical History: Cancer, Diabetes Mellitus, Hyperlipidemia, Hypertension, Myocardial Infarction ([place]) Additional Family Medical History / Comment(s): SMOKER- HAD CANCER OF LARNYX, AT AGE 58. FATHER HAD MULTIPLE MIs AND HIS FIRST SC WAS IN HIS LATE 40s OR 50s. Mother Family Medical History: Diabetes Mellitus, Dialysis, Hyperlipidemia, Hypertension, Renal Disease General Exam Limitations: no limitations General appearance: alert, in no apparent distress Head exam: Present: atraumatic, normocephalic Eye exam: Present: normal appearance. Absent: scleral icterus, conjunctival injection ENT exam: Present: other (Poor dentition) Neck exam: Present: normal inspection, full ROM Respiratory exam: Present: normal lung sounds bilaterally, other (Intermittent cough during the exam). Absent: respiratory distress, wheezes, rales, rhonchi, stridor, chest wall tenderness, accessory muscle use Cardiovascular Exam: Present: regular rate, normal rhythm, normal heart sounds. Absent: systolic murmur, diastolic murmur, rubs, gallop GI/Abdominal exam: Present: soft. Absent: distended, tenderness, guarding, rebound, rigid, mass, pulsatile mass Extremities exam: Present: normal inspection, normal capillary refill. Absent: pedal edema, calf tenderness Back exam: Present: normal inspection. Absent: CVA tenderness (R), CVA tenderness (L) Neurological exam: Present: alert Skin exam: Present: warm, dry, intact, normal color. Absent: rash Course Vital Signs 02/28/19 03/01/19 22:44 00:11 Temperature 98.3 F 98 F Pulse Rate 85 80 Respiratory 20 18 Rate Blood Pressure 149/85 134/80 O2 Sat by Pulse 97 96 Oximetry Disposition Clinical Impression: Chest pain Disposition: ADMITTED IP TO THIS HOSP Condition: Good Referrals: Shahid Larose MD [Primary Care Provider] - 1-2 days
[2019-02-28 23:12] LABS: Basophils # (A) 0.1 k/uL (0-0.2); Basophils % (A) 0 %; Eosinophils # (A) 0.5 k/uL (0-0.7); Eosinophils % (A) 3 %; HCT 35.7 % (39.0-53.0); HGB 12.7 gm/dL (13.0-17.5); Lymphocytes # (A) 2.3 k/uL (1.0-4.8); Lymphocytes % (A) 16 %; MCH 31.2 pg (25.0-35.0); MCHC 35.5 g/dL (31.0-37.0); MCV 87.8 fL (80.0-100.0); Mean Platelet Volume 5.3; Monocytes # (A) 0.5 k/uL (0-1.0); Monocytes % (A) 3 %; Neutrophils # (A) 11.6 k/uL (1.3-7.7); Neutrophils % (A) 77 %; Platelet Count 271 k/uL (150-450); RBC 4.06 m/uL (4.30-5.90); RDW 12.3 % (11.5-15.5); WBC 15.2 k/uL (3.8-10.6)
[2019-02-28 23:19] LABS: ALT 19 U/L (21-72); AST 17 U/L (17-59); African American GFR (CKD) >90 (>60 ml/min/1.73 sqM); Albumin 4.3 g/dL (3.5-5.0); Alkaline Phosphatase 51 U/L (38-126); Amylase 87 U/L (30-110); Anion Gap 10 mmol/L; Blood Urea Nitrogen 13 mg/dL (9-20); Calcium 9.5 mg/dL (8.4-10.2); Carbon Dioxide 20 mmol/L (22-30); Chloride 109 mmol/L (98-107); Glucose 190 mg/dL (74-99); Magnesium 1.6 mg/dL (1.6-2.3); Non-African American GFR(CKD) >90 (>60 ml/min/1.73 sqM); Sodium 139 mmol/L (137-145); Total Bilirubin 0.2 mg/dL (0.2-1.3)
--- NOTE | 2019-02-28 23:25 | XR ---
EXAMINATION TYPE: XR chest 2V DATE OF EXAM: 02/28/2019 COMPARISON: 08/05/2017 HISTORY: Chest pain TECHNIQUE: Frontal and lateral views of the chest are obtained. FINDINGS: There is no heart failure nor confluent pneumonic infiltrate. Costophrenic angles are maddy r. Heart size is normal. Bony thorax is intact. IMPRESSION: Normal chest. No change.
[2019-02-28 23:28] LABS: D-Dimer 0.59 mg/L FEU (<0.60); INR 0.9 (<1.2); Partial Thromboplastin Time 22.4 sec (22.0-30.0); Prothrombin Time 9.5 sec (9.0-12.0)
[2019-03-01 00:11] VITALS: RESP 18
[2019-03-01] MEDS: NITROGLYCERIN SL TABS 0.4 MG TAB SUBLINGUAL PRN ×2 (03:40→04:04)
[2019-03-01 06:42] LABS: Glucose,Whole Blood 143 mg/dL (75-99)
[2019-03-01] MEDS ORDERED: INSULIN ASPART (NovoLOG) 100 UNIT/ML VIAL SQ SCH (07:30)
[2019-03-01] MEDS ORDERED: LIPASE 5,000/PROTEASE 17,000/AMYLASE 24,000 PO SCH (07:30)
--- NOTE | 2019-03-01 07:45 | P.HPIM ---
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 No radiation. No nausea. He states he went to bed and woke up with significant chest pain. Again no nausea or diaphoresis is stated. No significant fever or chills or cough. Review of Systems Constitutional: Denies chills, Denies fever Eyes: denies blurred vision, denies pain Ears, nose, mouth and throat: Denies headache, Denies sore throat Cardiovascular: Reports chest pain, Reports shortness of breath, Denies lightheadedness, Denies palpitations, Denies paroxysmal nocturnal dyspnea Respiratory: Denies cough Musculoskeletal: Denies myalgias Integumentary: Denies pruritus, Denies rash Neurological: Denies numbness, Denies weakness Endocrine: Denies fatigue, Denies weight change Past Medical History Past Medical History: Diabetes Mellitus, Hyperlipidemia, Hypertension Additional Past Medical History / Comment(s): IDDM type II, high triglycerides, chronic pancreatitis, diverticular dx, esophageal stricture, dysphagia, gastirc ulcer, migraines. History of Any Multi-Drug Resistant Organisms: None Reported Past Surgical History: No Surgical Hx Reported Additional Past Surgical History / Comment(s): EGDs/dilatations, colonoscopy. Past Anesthesia/Blood Transfusion Reactions: No Reported Reaction Past Psychological History: No Psychological Hx Reported Additional Psychological History / Comment(s): Pt resides with his significant other. He is independent. Smoking Status: Current every day smoker Past Alcohol Use History: None Reported Additional Past Alcohol Use History / Comment(s): STARTED SMOKING AT AGE 11, SMOKES 1.5 PPD. PT WAS A HEAVY DRINKER X4 YEARS THEN QUITIN 2012 Past Drug Use History: None Reported Additional Drug Use History / Comment(s): TEENAGER SMOKED MARIJUANA NONE NOW. - Past Family History Father Family Medical History: Cancer, Diabetes Mellitus, Hyperlipidemia, Hypertension, Myocardial Infarction ([place]) Additional Family Medical History / Comment(s): SMOKER- HAD CANCER OF LARNYX, AT AGE 58. FATHER HAD MULTIPLE MIs AND HIS FIRST CA WAS IN HIS LATE 40s OR 50s. Mother Family Medical History: Diabetes Mellitus, Dialysis, Hyperlipidemia, Hypertension, Renal Disease Medications and Allergies Home Medications Medication Instructions Recorded Confirmed Type Fenofibrate Nanocrystallized 145 mg PO HS 04/14/14 02/28/19 History [Tricor] Lipase/Protease/Amylase [[place] Dr 1 cap PO AC-BID 04/30/14 02/28/19 History 6,000 Units Capsule] Losartan Potassium [Cozaar] 100 mg PO DAILY 12/14/14 02/28/19 History Hydrochlorothiazide [Hydrodiuril] 25 mg PO DAILY #30 tab 08/06/17 02/28/19 Rx Simvastatin [Zocor] 40 mg PO HS #30 tab 08/06/17 02/28/19 Rx Insulin Degludec [Tresiba 64 units SQ HS 02/28/19 02/28/19 History Flextouch U-200] Pioglitazone [Actos] 30 mg PO DAILY 02/28/19 02/28/19 History Allergies Allergy/AdvReac Type Severity Reaction Status Date / Time shellfish derived Allergy Severe Rash/Hives Verified 02/28/19 23:15 hydrocodone bitartrate Allergy Rash/Hives/ Verified 02/28/19 23:15 [From [place]] Weakness Physical Exam Vitals: Vital Signs Temp Pulse Pulse Resp BP BP Pulse Ox 03/01/19 04:00 98.3 F 75 18 122/74 97 03/01/19 01:00 98.0 F 73 18 131/72 97 03/01/19 00:11 98 F 80 18 134/80 96 02/28/19 22:44 98.3 F 85 20 149/85 97 Intake and Output 02/28/19 03/01/19 03/01/19 22:59 06:59 14:59 Other: # Voids 1 Weight 95.254 kg - Constitutional General appearance: no acute distress - EENT Eyes: EOMI - Neck Neck: no lymphadenopathy - Respiratory Respiratory: bilateral: CTA - Cardiovascular Rhythm: regular Heart sounds: normal: S1, S2 Abnormal Heart Sounds: no S3 Gallop - Gastrointestinal General gastrointestinal: soft, no tenderness - Integumentary Integumentary: no cyanotic - Neurologic Neurologic: CNII-XII intact Results CBC & Chem 7: 02/28/19 22:57 02/28/19 22:57 Labs: Abnormal Lab Results - Last 24 Hours (Table) 10/27/19 10/27/19 10/28/19 Range/Units 22:57 22:57 06:40 WBC 15.2 H (3.8-10.6) k/uL RBC 4.06 L (4.30-5.90) m/uL Hgb 12.7 L (13.0-17.5) gm/dL Hct 35.7 L (39.0-53.0) % Neutrophils # 11.6 H (1.3-7.7) k/uL Chloride 109 H (98-107) mmol/L Carbon Dioxide 20 L (22-30) mmol/L Glucose 190 H (74-99) mg/dL POC Glucose (mg/dL) 143 H (75-99) mg/dL ALT 19 L (21-72) U/L Thrombosis Risk Factor Assmnt - Choose All That Apply Any of the Below Risk Factors Present?: Yes Each Factor Represents 1 point: Acute CA, Age 41-60 years, Obesity (BMI >25) Other Risk Factors: No Other congenital or acquired thrombophilia - If yes, enter type in comment: No Thrombosis Risk Factor Assessment Total Risk Factor Score: 3 Thrombosis Risk Factor Assessment Level: Moderate Risk Assessment and Plan (1) Chest pain Current Visit: Yes Status: Acute Code(s): R07.9 - CHEST PAIN, UNSPECIFIED SNOMED Code(s): 45761668 (2) Chronic pancreatitis Current Visit: No Status: Acute Code(s): K86.1 - OTHER CHRONIC PANCREATITIS SNOMED Code(s): 185558888 (3) Hypertension, poor control Current Visit: No Status: Acute Code(s): I10 - ESSENTIAL (PRIMARY) HYPERTENSION SNOMED Code(s): 749399168 (4) DM w/o complication type II Current Visit: No Status: Chronic Code(s): E11.9 - TYPE 2 DIABETES MELLITUS WITHOUT COMPLICATIONS SNOMED Code(s): 189172113 (5) Hyperlipidemia Current Visit: No Status: Chronic Code(s): E78.5 - HYPERLIPIDEMIA, UNSPECIFIED SNOMED Code(s): 09680260 (6) Hypertriglyceridemia Current Visit: No Status: Chronic Code(s): E78.1 - PURE HYPERGLYCERIDEMIA SNOMED Code(s): 066642867 (7) Tobacco abuse Current Visit: No Status: Chronic Code(s): Z72.0 - TOBACCO USE SNOMED Code(s): 253991142 Plan: Reconcile home medications as necessary. Nothing by mouth pending cardiology evaluation. Rule out myocardial infarction. Prognosis somewhat guarded secondary to his multiple risk factors. See orders otherwise. Time with Patient: Greater than 30
[2019-03-01 07:51] VITALS: PULSE 79
[2019-03-01] MEDS ORDERED: ALBUTEROL NEBULIZED 2.5 MG/3 ML INHALATION PRN (08:47)
[2019-03-01] MEDS ORDERED: LOSARTAN 50 MG TAB PO SCH (09:00)
[2019-03-01] MEDS ORDERED: AMOXICILLIN 500 MG CAP PO SCH (09:00)
[2019-03-01] MEDS ORDERED: PIOGLITAZONE 30 MG TAB PO SCH (09:00)
[2019-03-01] MEDS ORDERED: HYDROCHLOROTHIAZIDE 25 MG TAB PO SCH (09:00)
[2019-03-01 09:13] LABS: Cholesterol 202 mg/dL (<200); HDL Cholesterol 38 mg/dL (40-60); LDL Cholesterol,Calculated 109 mg/dL (0-99); Triglycerides 274 mg/dL (<150)
--- NOTE | 2019-03-01 09:24 | P.CRDCN ---
History of Present Illness History of present illness: This is a pleasant 43-year-old male past medical history significant for diabetes mellitus, hypertension, dyslipidemia, chronic pancreatitis, esophageal stricture and chronic nicotine dependence. We have been asked to see him in consultation secondary to chest discomfort. He states yesterday while laying flat on his back working on his truck he developed a discomfort in the l eft precordial region described as a dull achy cramping sensation. His chest discomfort has been persistent since that started yesterday afternoon and is intensified by deep inspiration or coughing. Nothing makes the discomfort better aside from shallow breathing. At times he does have radiation to the left shoulder that is exacerbated by movement of the left arm. He has no discomfort in the arms, back, neck or jaw. He does have what he describes as an infected tooth on the left lower jaw. He denies associated shortness of breath, dizziness, nausea, vomiting, palpitations or diaphoresis. EKG reveals sinus mechanism heart rate of 80, inferior Q waves. Compared to old EKGs this is chronic no acute changes noted. Chest x-ray is negative for an acute cardiopulmonary process. Laboratory data reviewed, WBC 15.2, hemoglobin 12.7, platelets 271, d-dimer 0.59, sodium 139, potassium 4.0, creatinine 0.82, cardiac enzymes negative 2, LDL 109, triglycerides 274. Current daily cardiac medications include fenofibrate 145 mg daily, hydrochlorothiazide 25 mg daily, losartan 100 mg daily and simvastatin 40 mg daily. Most recent stress test was a dobutamine stress echocardiogram performed August 2017 was negative for stress-induced ischemia. At the time of my exam: CONSTITUTIONAL: Denies fever. Denies chills. EYES: Denies blurred vision. Denies vision changes. Denies eye pain. EARS, NOSE, MOUTH & THROAT: Denies headache. Denies sore throat. Denies ear pain. Complains of dental pain left side. CARDIOVASCULAR: Complains of pleuritic chest pain. Denies shortness of breath. Denies orthopnea. Denies PND. Denies palpitations. RESPIRATORY: Complains of cough. GASTROINTESTINAL: Denies abdominal pain. Denies diarrhea. Denies constipation. Denies nausea. Denies vomiting. MUSCULOSKELETAL: Denies myalgias. INTEGUMENTARY: Denies pruitis. Denies rash. NEUROLOGIC: Denies numbness. Denies tingling. Denies weakness. PSYCHIATRIC: Denies anxiety. Denies depression. ENDOCRINE: Denies fatigue. Denies weight change. Denies polydipsia. Denies polyurina. GENITOURINARY: Denies burning, hematuria or urgency with micturation. HEMATOLOGIC: Denies history of anemia. Denies bleeding. Blood pressure 139/87 heart rate 79 afebrile maintaining oxygen saturation on room air GENERAL: This is a 43-year-old male in no apparent distress at the time of my examination. HEENT: Head is atraumatic, normocephalic. Pupils are equal, round. Sclerae anicteric. Conjunctivae are clear. Mucous membranes of the mouth are moist. Neck is supple. There is no jugular venous distention. No carotid bruit is heard. LUNGS: Faint expiratory wheeze. No rales or rhonchi. No chest wall tenderness is noted on palpation or with deep breathing. HEART: Regular rate and rhythm with short systolic ejection murmur at the left sternal border, no rubs or gallops. S1 and S2 heard. ABDOMEN: Soft, nontender. Bowel sounds are heard. No organomegaly noted. EXTREMITIES: No evidence of peripheral edema and no calf tenderness noted. VASCULAR: Radial and dorsalis pedis pulses palpated, no evidence of clubbing. NEUROLOGIC: Patient is awake, alert and oriented x3. ASSESSMENT Chest pain, pleuritic. An acute coronary event has been ruled out. Leukocytosis Dental infection Hypertension Dyslipidemia Diabetes mellitus Strip esophageal stricture Chronic nicotine dependence PLAN Pain is atypical and not related to coronary artery disease. Obtain 2-D echocardiogram and Doppler study to assess cardiac structure and f unction. Initiate on Ventolin inhaler 2 puffs 3 times a day and amoxicillin 500 mg 3 times a day for dental infection. Ongoing medical management of underlying viral illness. Recommend follow-up in the office with Dr. Schwarz in 2 weeks once his respiratory status has improved to undergo outpatient stress testing. Smoking cessation recommended. Thank you kindly for this consultation. Nurse Practitioner note has been reviewed, I agree with a documented findings and plan of care. Patient was seen and examined. Past Medical History Past Medical History: Diabetes Mellitus, Hyperlipidemia, Hypertension Additional Past Medical History / Comment(s): IDDM type II, high triglycerides, chronic pancreatitis, diverticular dx, esophageal stricture, dysphagia, gastirc ulcer, migraines. History of Any Multi-Drug Resistant Organisms: None Reported Past Surgical History: No Surgical Hx Reported Additional Past Surgical History / Comment(s): EGDs/dilatations, colonoscopy. Past Anesthesia/Blood Transfusion Reactions: No Reported Reaction Past Psychological History: No Psychological Hx Reported Additional Psychological History / Comment(s): Pt resides with his significant other. He is independent. Smoking Status: Current every day smoker Past Alcohol Use History: None Reported Additional Past Alcohol Use History / Comment(s): STARTED SMOKING AT AGE 11, SMOKES 1.5 PPD. PT WAS A HEAVY DRINKER X4 YEARS THEN QUITIN 2012 Past Drug Use History: None Reported Additional Drug Use History / Comment(s): TEENAGER SMOKED MARIJUANA NONE NOW. - Past Family History Father Family Medical History: Cancer, Diabetes Mellitus, Hyperlipidemia, Hypertension, Myocardial Infarction ([place]) Additional Family Medical History / Comment(s): SMOKER- HAD CANCER OF LARNYX, AT AGE 58. FATHER HAD MULTIPLE MIs AND HIS FIRST [place] WAS IN HIS LATE 40s OR 50s. Mother Family Medical History: Diabetes Mellitus, Dialysis, Hyperlipidemia, Hypertension, Renal Disease Medications and Allergies Home Medications Medication Instructions Recorded Confirmed Type Fenofibrate Nanocrystallized 145 mg PO HS 04/14/14 02/28/19 History [Tricor] Lipase/Protease/Amylase [Creon Dr 1 cap PO AC-BID 04/30/14 02/28/19 History 6,000 Units Capsule] Losartan Potassium [Cozaar] 100 mg PO DAILY 12/14/14 02/28/19 History Hydrochlorothiazide [Hydrodiuril] 25 mg PO DAILY #30 tab 08/06/17 02/28/19 Rx Simvastatin [Zocor] 40 mg PO HS #30 tab 08/06/17 02/28/19 Rx Insulin Degludec [Tresiba 64 units SQ HS 02/28/19 02/28/19 History Flextouch U-200] Pioglitazone [Actos] 30 mg PO DAILY 02/28/19 02/28/19 History Allergies Allergy/AdvReac Type Severity Reaction Status Date / Time shellfish derived Allergy Severe Rash/Hives Verified 02/28/19 23:15 hydrocodone bitartrate Allergy Rash/Hives/ Verified 02/28/19 23:15 [From [place]] Weakness Physical Exam Vitals: Vital Signs Temp Pulse Pulse Resp BP BP BP 03/01/19 07:15 98.3 F 79 18 139/87 03/01/19 04:00 98.3 F 75 18 122/74 03/01/19 01:00 98.0 F 73 18 131/72 03/01/19 00:11 98 F 80 18 134/80 02/28/19 22:44 98.3 F 85 20 149/85 Pulse Ox 03/01/19 07:15 97 03/01/19 04:00 97 03/01/19 01:00 97 03/01/19 00:11 96 02/28/19 22:44 97 Intake and Output 02/28/19 03/01/19 03/01/19 22:59 06:59 14:59 Other: # Voids 1 Weight 95.254 kg Results 02/28/19 22:57 02/28/19 22:57 Cardiac Enzymes 02/28/19 02/28/19 03/01/19 Range/Units 22:57 22:57 05:01 AST 17 (17-59) U/L Troponin I <0.012 <0.012 (0.000-0.034) ng/mL Coagulation 02/28/19 Range/Units 22:57 PT 9.5 (9.0-12.0) sec APTT 22.4 (22.0-30.0) sec Lipids 03/01/19 Range/Units 05:01 Triglycerides 274 H (<150) mg/dL Cholesterol 202 H (<200) mg/dL HDL Cholesterol 38 L (40-60) mg/dL CBC 02/28/19 Range/Units 22:57 WBC 15.2 H (3.8-10.6) k/uL RBC 4.06 L (4.30-5.90) m/uL Hgb 12.7 L (13.0-17.5) gm/dL Hct 35.7 L (39.0-53.0) % Plt Count 271 (150-450) k/uL Comprehensive Metabolic Panel 02/28/19 Range/Units 22:57 Sodium 139 (137-145) mmol/L Potassium 4.0 (3.5-5.1) mmol/L Chloride 109 H (98-107) mmol/L Carbon Dioxide 20 L (22-30) mmol/L BUN 13 (9-20) mg/dL Creatinine 0.82 (0.66-1.25) mg/dL Glucose 190 H (74-99) mg/dL Calcium 9.5 (8.4-10.2) mg/dL AST 17 (17-59) U/L ALT 19 L (21-72) U/L Alkaline Phosphatase 51 (38-126) U/L Total Protein 7.0 (6.3-8.2) g/dL Albumin 4.3 (3.5-5.0) g/dL Current Medications Generic Name Dose Route Start Last Admin Trade Name Freq PRN Reason Stop Dose Admin Albuterol Sulfate 2.5 mg 03/01/19 08:47 Ventolin Nebulized INHALATION RT-TID PRN Shortness Of Breath Or Wheezin Amoxicillin 500 mg 03/01/19 09:00 Amoxicillin PO Q8HR [facility] Lipase/Protease/Amylase 1 each 03/01/19 07:[address] 5,000 Unit Capsule PO AC-BID ILANA Aspirin 81 mg 03/02/19 09:00 Aspirin PO DAILY [facility] Atorvastatin Calcium 20 mg 03/01/19 21:00 Lipitor PO HS [facility] Fenofibrate 160 mg 03/01/19 21:00 Lofibra PO HS ILANA Hydrochlorothiazide 25 mg 03/01/19 09:00 Hydrodiuril PO DAILY [facility] Insulin Aspart 0 unit 03/01/19 07:30 Novolog SQ ACHS ILANA Protocol Insulin Detemir 64 unit 03/01/19 21:00 Levemir SQ HS ILANA Losartan Potassium 100 mg 03/01/19 09:00 Cozaar PO DAILY [facility] Nitroglycerin 0.4 mg 03/01/19 00:11 03/01/19 04:04 Nitrostat SUBLINGUAL 0.4 mg Q5M PRN Administration Chest Pain Pioglitazone HCl 30 mg 03/01/19 09:00 Actos PO DAILY [facility] Sodium Chloride 10 ml 03/01/19 09:00 Saline Flush IV BID ILANA Intake and Output 02/28/19 03/01/19 03/01/19 22:59 06:59 14:59 Other: # Voids 1 Weight 95.254 kg 02/28/19 22:57 02/28/19 22:57
[2019-03-01] MEDS ORDERED: ACETAMINOPHEN TAB 325 MG TAB PO PRN (10:01)
[2019-03-01 11:21] VITALS: BP 150/80; TEMP 98.4
[2019-03-01 11:40] LABS: Glucose,Whole Blood 254 mg/dL (75-99)
[2019-03-01 19:27] LABS: Hemoglobin A1C 9.3 % (4.0-6.0)
[2019-03-01] MEDS ORDERED: INSULIN DETEMIR (LEVEMIR) 100 UNIT/ML SYR SQ SCH (21:00)
[2019-03-01] MEDS ORDERED: FENOFIBRATE 160 MG TAB PO SCH (21:00)
[2019-03-01] MEDS ORDERED: ATORVASTATIN 20 MG TAB PO SCH (21:00)
--- NOTE | 2019-03-02 07:29 | ECHOF ---
Referral Reason:cp, pleuritic, leukocytosis, assess for effusion MEASUREMENTS -------- HEIGHT: 182.9 cm WEIGHT: 95.3 kg BP: RVIDd: 3.0 cm (< 3.3) IVSd: 1.6 cm (0.6 - 1.1) LVIDd: 5.0 cm (3.9 - 5.3) LVPWd: 1.2 cm (0.6 - 1.1) IVSs: 1.9 cm LVIDs: 2.3 cm LVPWs: 1.9 cm LAESV Index (A-L): 21.88 ml/m Ao Diam: 3.7 cm (2.0 - 3.7) AV Cusp: 1.9 cm (1.5 - 2.6) LA Diam: 3.0 cm (2.7 - 3.8) MV EXCURSION: 18.395 mm (> 18.000) MV EF SLOPE: 44 mm/s (70 - 150) EPSS: 0.3 cm MV E Kyle: 0.81 m/s MV DecT: 130 ms MV A Kyle: 0.75 m/s MV E/A Ratio: 1.08 RAP: 5.00 mmHg RVSP: 12.02 mmHg FINDINGS -------- Sinus rhythm. This was a technically adequate study. The left ventricular size is normal. There is moderate concentric left ventricular hypertrophy. O verall left ventricular systolic function is normal with, an EF between 55 - 60 %. The right ventricle is normal in size. The left atrial size is normal. IAS not well Visualized. There is mild aortic valve sclerosis. There is no evidence of aortic regurgitation. Mild mitral annular calcification present. Mild mitral regurgitation is present. Mild tricuspid regurgitation present. Right ventricular systolic pressure is normal at < 35 mmHg. There is no evidence of pulmonary hypertension. There is no pulmonic regurgitation present. The aortic root size is normal. There is no pericardial effusion. CONCLUSIONS -------- 1. Sinus rhythm. 2. This was a technically adequate study. 3. The left ventricular size is normal. 4. There is moderate concentric left ventricular hypertrophy. 5. Overall left ventricular systolic function is normal with, an EF between 55 - 60 %. 6. The right ventricle is normal in size. 7. The left atrial size is normal. 8. IAS not well Visualized. 9. There is mild aortic valve sclerosis. 10. Mild mitral annular calcification present. 11. Mild mitral regurgitation is present. 12. Mild tricuspid regurgitation present. 13. Right ventricular systolic pressure is normal at < 35 mmHg. 14. There is no evidence of pulmonary hypertension. 15. There is no pulmonic regurgitation present. 16. The aortic root size is normal. 17. There is no pericardial effusion. PILLOWCASE FOLDER: Vashti Alba RDCS
[2019-03-02] MEDS ORDERED: ASPIRIN 325 MG TAB PO SCH (09:00)
[2019-03-02] MEDS ORDERED: ASPIRIN 81 MG PO SCH (09:00)
--- NOTE | 2019-03-25 13:15 | P.DS ---
Providers Date of admission: 03/01/19 00:11 Attending physician: Shahid Larose Consults: 03/01/19 00:11 Consult Physician Routine Consulting Provider: Elliott Saini Consult Reason/Comments: chest pain Do you want consulting provider notified?: Yes Primary care physician: Shahid Larose - Discharge Diagnosis(es) (1) Chest pain Status: Acute (2) Chronic pancreatitis Status: Acute (3) Hypertension, poor control Status: Acute (4) DM w/o complication type II Status: Chronic (5) Hyperlipidemia Status: Chronic (6) Hypertriglyceridemia Status: Chronic (7) Tobacco abuse Status: Chronic Hospital Course: This is discharge him in a 43-year-old white male with known history of chronic bronchitis and diabetes who was admitted for chest pain. Myocardial infarction was ruled out and he was cleared by cardiology after appropriate evaluation. Patient Condition at Discharge: Good Plan - Discharge Summary Discharge Rx Participant: No New Discharge Prescriptions: New Amoxicillin 500 mg PO Q8HR #30 cap Aspirin 81 mg PO DAILY chew Albuterol Nebulized [Ventolin Nebulized] 2.5 mg INHALATION RT-TID PRN #120 nebu PRN Reason: Shortness Of Breath Or Wheezin Continue Fenofibrate Nanocrystallized [Tricor] 145 mg PO HS Lipase/Protease/Amylase [Creon Dr 6,000 Units Capsule] 1 cap PO AC-BID Losartan Potassium [Cozaar] 100 mg PO DAILY Simvastatin [Zocor] 40 mg PO HS #30 tab Hydrochlorothiazide [Hydrodiuril] 25 mg PO DAILY #30 tab Pioglitazone [Actos] 30 mg PO DAILY Insulin Degludec [Tresiba Flextouch U-200] 64 units SQ HS Discharge Medication List Fenofibrate Nanocrystallized [Tricor] 145 mg PO HS 04/14/14 [History] Lipase/Protease/Amylase [Creon Dr 6,000 Units Capsule] 1 cap PO AC-BID 04/30/14 [History] Losartan Potassium [Cozaar] 100 mg PO DAILY 12/14/14 [History] Hydrochlorothiazide [Hydrodiuril] 25 mg PO DAILY #30 tab 08/06/17 [Rx] Simvastatin [Zocor] 40 mg PO HS #30 tab 08/06/17 [Rx] Insulin Degludec [Tresiba Flextouch U-200] 64 units SQ HS 02/28/19 [History] Pioglitazone [Actos] 30 mg PO DAILY 02/28/19 [History] Albuterol Nebulized [Ventolin Nebulized] 2.5 mg INHALATION RT-TID PRN #120 nebu 03/01/19 [Rx] Amoxicillin 500 mg PO Q8HR #30 cap 03/01/19 [Rx] Aspirin 81 mg PO DAILY chew 03/01/19 [Rx] Follow up Appointment(s)/Referral(s): Elliott Saini MD [STAFF PHYSICIAN] - 03/22/19 4:15 pm (Follow up in the office as scheduled for you for outpatient stress test.) Shahid Larose MD [Primary Care Provider] - 1 Week (Call and make appointment with Dr. Larose on Friday) Patient Instructions/Handouts: Chest Pain (GEN) Discharge Disposition: HOME SELF-CARE
== END 2019-03-01 15:47 | disposition home or self-care (01) ==
LOC: EC 22:41 → 1SOBS 03-01 00:11
PROVIDERS: ADMIT Family Medicine; ATTEND Family Medicine
DX: R07.89 Other chest pain (principal); K86.1 Other chronic pancreatitis; I10 Essential (primary) hypertension; K04.7 Periapical abscess without sinus; K22.2 Esophageal obstruction; D72.829 Elevated white blood cell count, unspecified; E78.5 Hyperlipidemia, unspecified; E11.9 Type 2 diabetes mellitus without complications; E78.1 Pure hyperglyceridemia; G43.909 Migraine, unspecified, not intractable, without status migrainosus; R13.10 Dysphagia, unspecified; K57.90 Diverticulosis of intestine, part unspecified, without perforation or abscess without bleeding; F17.210 Nicotine dependence, cigarettes, uncomplicated; E66.9 Obesity, unspecified; Z68.29 Body mass index [BMI] 29.0-29.9, adult; Z79.4 Long term (current) use of insulin; Z79.899 Other long term (current) drug therapy; Z88.5 Allergy status to narcotic agent; Z91.013 Allergy to seafood; Z87.11 Personal history of peptic ulcer disease; Z87.09 Personal history of other diseases of the respiratory system; Z87.19 Personal history of other diseases of the digestive system; Z83.3 Family history of diabetes mellitus; Z82.49 Family history of ischemic heart disease and other diseases of the circulatory system; Z81.2 Family history of tobacco abuse and dependence; Z80.1 Family history of malignant neoplasm of trachea, bronchus and lung; Z83.49 Family history of other endocrine, nutritional and metabolic diseases; Z84.1 Family history of disorders of kidney and ureter
CPT/HCPCS: 93005 ×2; 99285; 36415; 93306; 85379; 80061; 80053; 82150; 83690; 83735; 84484 ×2; 85025; 85610; 85730; 83036; 71046; G0378

== ENCOUNTER 2020-11-12 | Emergency (ER) | payer BC | END 2020-11-12 17:07 | disposition home or self-care (01) ==

== ENCOUNTER → 2022-02-13 | Outpatient (CLI) | payer BC ==
--- NOTE | 2022-02-14 05:39 | MR ---
EXAMINATION TYPE: MR pancreas wo/w con DATE OF EXAM: 02/13/2022 COMPARISON: MR scan 06/25/2013 HISTORY: Pancreatic cyst. CONTRAST: Standard multiplanar, multisequence MRI departmental protocol images were obtained without contrast a nd with 9 mL intravenous Gadavist gadolinium contrast. Liver has normal size and contour. The bile ducts are not dilated. Gallbladder appears normal. Spleen is intact. There is mild dilation of the pancreatic duct in the tail of the pancreas there is some increased sig nal on the T2 images in the body of the pancreas. There is no enhancement. This is likely related to some pseudocyst formation and scar tissue. The pancreatic duct in the head and body appears normal. There is slight decreased enhancement in the uncinate process of the pancreas on the initial images compared to the rest of the pancreas. The de layed images show enhancement in this area and this is probably due to differential blood flow. No di screte pancreatic mass seen at the uncinate process. The stomach is intact. There is no adrenal mass. Kidneys show normal size and contour. There is normal enhancement of the ki dneys. No hydronephrosis. No retroperitoneal adenopathy. No sign of a bowel obstruction. No mesenteri c edema. No ascites. No evidence of gastric mass. There is normal enhancement of the portal venous sy stem. IMPRESSION: There is dilated pancreatic duct involving the tail of the pancreas with pancreatic atrophy. This is probably postinflammatory changes and atrophy and not changed compared to CT scan of 12/26/2021. No davis spicious pancreatic mass. There is evidence of an irregular 1.5 cm pseudocyst at the junction of the body and tail of the pancreas. This appears unchanged compared to CT scan.
== END | disposition home or self-care (01) ==
LOC: RADMRIMAIN 14:15
PROVIDERS: ATTEND Family Medicine
DX: K86.2 Cyst of pancreas (principal)
CPT/HCPCS: 74183; A9585

== ENCOUNTER 2022-09-30 23:26 | Emergency (ER) | payer BC ==
[2022-09-30 23:43] VITALS: PULSE 86; TEMP 98
[2022-10-01 01:53] VITALS: BP 128/82; RESP 15
--- NOTE | 2022-10-01 02:48 | ED ---
General Adult HPI - General Chief complaint: ENT Stated complaint: Chest Pain, Something lodged in throat Time Seen by Provider: 10/01/22 01:06 Source: patient Mode of arrival: ambulatory Limitations: no limitations - History of Present Illness Initial comments: This is a 47-year-old male with a past medical history including hypertension, diabetes, previous esophageal narrowing and migraines presents emergency department for feeling as if he had food stuck behind his Grant's apple. The patient stated that he was eating pepperoni earlier tonight when he felt as if he had some pepperoni stuck behind his Grant's apple. The patient was able to tolerate liquids and his own saliva however stated that he felt as if there was something still stuck there. The patient did state that he had a past medical history including a lifelong issue of narrowing of his esophagus that had previously been attempted to be widened unsuccessfully. The patient himself denied any other acute pain but did state that he had burning in the lower aspect of his chest with swallowing. The patient denied any difficulty breathing and difficulty swallowing. The patient was resting in bed comfortably without any further acute distress noted. - Related Data Home Medications Medication Instructions Recorded Confirmed Fenofibrate Nanocrystallized 145 mg PO DAILY 04/14/14 06/29/22 [Tricor] Lipase/Protease/Amylase [Creon Dr 1 cap PO AC-BID 04/30/14 06/29/22 6,000 Unit Capsule] Losartan Potassium [Cozaar] 100 mg PO DAILY 12/14/14 06/29/22 Pioglitazone [Actos] 30 mg PO DAILY 02/28/19 06/29/22 Empagliflozin [Jardiance] 25 mg PO DAILY 06/29/22 06/29/22 Insulin Glargine,Hum.rec.anlog 74 units SQ DAILY 06/29/22 06/29/22 [Ebenezer Cabral] Previous Rx's Medication Instructions Recorded Simvastatin [Zocor] 40 mg PO HS #30 tab 08/06/17 hydroCHLOROthiazide [Hydrodiuril] 25 mg PO DAILY #30 tab 08/06/17 Ibuprofen [Motrin] 800 mg PO Q8HR PRN #30 tab 06/29/22 Ondansetron Odt [Zofran Odt] 4 mg PO Q8HR PRN #10 tab 06/29/22 Famotidine [Pepcid] 20 mg PO BID #150 ml 10/01/22 Allergies Allergy/AdvReac Type Severity Reaction Status Date / Time shellfish derived Allergy Severe Rash/Hives Verified 09/30/22 23:40 hydrocodone bitartrate Allergy Rash/Hives/ Verified 09/30/22 23:40 [From [place]] Weakness Review of Systems ROS Statement: Those systems with pertinent positive or pertinent negative responses have been documented in the HPI. ROS Other: All systems not noted in ROS Statement are negative. Past Medical History Past Medical History: Diabetes Mellitus, Hyperlipidemia, Hypertension Additional Past Medical History / Comment(s): IDDM type II, high triglycerides, chronic pancreatitis, diverticular dx, esophageal stricture, dysphagia, gastirc ulcer, migraines. History of Any Multi-Drug Resistant Organisms: None Reported Past Surgical History: No Surgical Hx Reported Additional Past Surgical History / Comment(s): EGDs/dilatations, colonoscopy. Past Anesthesia/Blood Transfusion Reactions: No Reported Reaction Past Psychological History: No Psychological Hx Reported Smoking Status: Current every day smoker Past Alcohol Use History: None Reported Past Drug Use History: None Reported - Past Family History Father Family Medical History: Cancer, Diabetes Mellitus, Hyperlipidemia, Hypertension, Myocardial Infarction ([place]) Additional Family Medical History / Comment(s): SMOKER- HAD CANCER OF [place] ED AT AGE 58. FATHER HAD MULTIPLE MIs AND HIS FIRST IN WAS IN HIS LATE 40s OR 50s. Mother Family Medical History: Diabetes Mellitus, Dialysis, Hyperlipidemia, Hypertens ion, Renal Disease General Exam Limitations: no limitations General appearance: alert, in no apparent distress Head exam: Present: atraumatic, normocephalic, normal inspection Eye exam: Present: normal appearance Pupils: Present: normal accommodation ENT exam: Present: normal exam, normal oropharynx, mucous membranes moist Neck exam: Present: normal inspection, full ROM Respiratory exam: Present: normal lung sounds bilaterally Cardiovascular Exam: Present: regular rate, normal rhythm, normal heart sounds GI/Abdominal exam: Present: soft, normal bowel sounds Extremities exam: Present: normal inspection, full ROM Back exam: Present: normal inspection, full ROM Neurological exam: Present: alert, oriented X3, CN II-XII intact Psychiatric exam: Present: normal affect, normal mood Skin exam: Present: warm, dry Course Vital Signs 09/30/22 10/01/22 23:41 01:51 Temperature 98 F Pulse Rate 86 86 Respiratory 16 15 Rate Blood Pressure 127/79 128/82 O2 Sat by Pulse 98 94 L Oximetry Medical Decision Making - Medical Decision Making Was pt. sent in by a medical professional or institution ([facility]INE Murguia, [employer], urgent care, hospital, or intermediate...) When possible be specific @ -No Did you speak to anyone other than the patient for history (EMS, parent, family, police, friend...)? What history was obtained from this source @ -No Did you review nursing and triage notes (agree or disagree)? Why? @ -I reviewed and agree with nursing and triage notes Were old charts reviewed (outside hosp., previous admission, EMS record, old EKG, old radiological studies, urgent care reports/EKG's, intermediate records)? Report findings @ -No old charts were reviewed Differential Diagnosis (chest pain, altered mental status, abdominal pain women, abdominal pain men, vaginal bleeding, weakness, fever, dyspnea, syncope, headache, dizziness, GI bleed, back pain, seizure, CVA, palpatations, mental health)? @ -Esophageal stricture, food bolus impaction EKG interpreted by me (3pts min.). @ -None X-rays interpreted by me (1pt min.). @ -An x-ray of the soft tissues of the neck was obtained and was interpreted by myself showing no acute findings in the neck. I did evaluate the x-ray myself and did show minor narrowing without significant airway compromise. CT interpreted by me (1pt min.). @ -None done U/S interpreted by me (1pt. min.). @ -None done What testing was considered but not performed or refused? (CT, X-rays, U/S, labs)? Why? @ -None What meds were considered but not given or refused? Why? @ -None Did you discuss the management of the patient with other professionals (professionals i.e. JUSTINE Murguia, [employer]ER, lab, RT, psych nurse, social scientist, ladies' locker room attendant, teacher, medical scientific officer, case coordinator)? Give summary @ -No Was smoking cessation discussed for >3mins.? @ -Yes Was critical care preformed (if so, how long)? @ -No Were there social determinants of health that impacted care today? How? (Homelessness, low income, unemployed, alcoholism, drug addiction, transportation, low edu. Level, literacy, decrease access to med. care, nursing home, rehab)? @ -No Was there de-escalation of care discussed even if they declined (Discuss DNR or withdrawal of care, Hospice)? DNR status @ -No What co-morbidities impacted this encounter? (DM, HTN, Smoking, COPD, CAD, Cancer, CVA, ARF, Chemo, Hep., AIDS, mental health diagnosis, sleep apnea, morbid obesity)? @ -Chronic esophageal narrowing Was patient admitted / discharged? Hospital course, mention meds given and route, prescriptions, significant lab abnormalities, going to OR and other pertinent info. @ -The patient was seen and evaluated emergency department. Physical exam, the patient was resting in bed. The patient had no acidic and findings on physical exam and was able to tolerate his own secretions without any difficulty with swallowing. X-rays were obtained that did not show any abnormality. On physical exam, the patient was able to sleep comfortably and did agree to receiving an IM dose of Decadron as well as a GI cocktail for minor burning in the central chest. The patient did state that this burning was consistent with every time he swallows and did not have any continued chest pain at rest. The patient stated he had chronic issues with swelling of esophagus and he was recommended to follow-up with ENT for further workup and evaluation of this. The patient was however not given any further medications at home before steroids but was given a prescription for Pepcid. The patient was advised to follow-up with ENT for further workup and likely ballooning of his esophagus but was recommended to come back to the emergency department if he had worsening pain or symptoms. The patient continued to tolerate his own secretions and denied of any difficulties with swallowing. The patient was agreeable to this and all his questions were answered. The patient was discharged home in stable condition. Undiagnosed new problem with uncertain prognosis? @ -No Drug Therapy requiring intensive monitoring for toxicity (Heparin, Nitro, Insulin, Cardizem)? @ -No Were any procedures done? @ -No Diagnosis/symptom? @ -Throat discomfort Acute, or Chronic, or Acute on Chronic? @ -Acute on chronic Uncomplicated (without systemic symptoms) or Complicated (systemic symptoms)? @ -Uncomplicated Side effects of treatment? @ -No Exacerbation, Progression, or Severe Exacerbation? @ -No Poses a threat to life or bodily function? How? (Chest pain, [place], [place], pneumonia, PE, COPD, DKA, ARF, appy, cholecystitis, CVA, Diverticulitis, Homicidal, Suicidal, threat to staff... and all critical care pts) @ -No Disposition Clinical Impression: Esophageal obstruction due to food impaction Disposition: HOME SELF-CARE Condition: Stable Instructions (If sedation given, give patient instructions): Esophageal Foreign Body (ED) Prescriptions: Famotidine [Pepcid] 20 mg PO BID #150 ml Is patient prescribed a controlled substance at d/c from ED?: No Referrals: Shahid Larose MD [Primary Care Provider] - 1-2 days Abebe Coronado MD [STAFF PHYSICIAN] - 1-2 days Time of Disposition: 03:00
--- NOTE | 2022-10-01 03:04 | XR ---
EXAM: XR Soft Tissue Neck CLINICAL HISTORY: ITS.REASON XR Reason: Food bolus sensation, h/o narrowing TECHNIQUE: Frontal and lateral views of the soft tissues of the neck. COMPARISON: No relevant prior studies available. FINDINGS: Airway: Unremarkable. No abnormal narrowing. Bones/joints: No acute fracture. No dislocation. Soft tissues: Unremarkable. No abnormal soft tissue prominence. Normal epiglottis. IMPRESSION: No acute findings in the neck. If there is further concern, consider CT.
[2022-10-01] MEDS ORDERED: MAG HYDROX/AL HYDROX/SIMETH 30 ML, HYOSCYAMINE ELIXIR 10 ML, LIDOCAINE 2% GLYDO JELLY 1... PO STA ×3 (03:20)
[2022-10-01] MEDS ORDERED: DEXAMETHASONE SOD PHOSPHATE 10 MG/ML 1 ML VIAL IM STA (03:20)
== END 2022-10-01 03:52 | disposition home or self-care (01) ==
LOC: EC 23:26
DX: T18.128A Food in esophagus causing other injury, initial encounter (principal); I10 Essential (primary) hypertension; E11.9 Type 2 diabetes mellitus without complications; E78.5 Hyperlipidemia, unspecified; F17.200 Nicotine dependence, unspecified, uncomplicated; Z79.4 Long term (current) use of insulin; Z79.84 Long term (current) use of oral hypoglycemic drugs; Z79.899 Other long term (current) drug therapy; Z91.013 Allergy to seafood; Z88.5 Allergy status to narcotic agent
CPT/HCPCS: 70360; 99284; 96372; J1100

== ENCOUNTER → 2022-10-24 | Outpatient (CLI) | payer BC ==
--- NOTE | 2022-10-24 11:26 | FL ---
Modified barium swallow. HISTORY: Dysphagia. Modified barium swallow was performed with the department of speech pathology. The patient was prese nted with various consistencies of barium. There is no evidence for aspiration or penetration. Full report is to follow from the department of speech pathology. Impression: Normal study.
== END | disposition home or self-care (01) ==
LOC: RADUSWWP 10:00
PROVIDERS: ATTEND Otolaryngology
DX: K21.9 Gastro-esophageal reflux disease without esophagitis (principal); R13.10 Dysphagia, unspecified; K44.9 Diaphragmatic hernia without obstruction or gangrene
CPT/HCPCS: 74220

== ENCOUNTER → 2022-11-20 | Outpatient (CLI) | payer BC ==
--- NOTE | 2022-11-21 07:39 | XR ---
EXAMINATION TYPE: XR lumbar spine 2 or 3V DATE OF EXAM: 11/20/2022 CLINICAL HISTORY: M 54.50 TECHNIQUE: Three views of the lumbar spine are submitted. COMPARISON: CT abdomen pelvis 12/26/2021 FINDINGS: There are 5 lumbar type vertebral bodies identified. No acute fracture or dislocation. Minimal we anna l square curvature of the lumbar spine with apex at L3. Vertebral body heights are within normal limi ts. Multilevel disc space narrowing with endplate sclerosis and anterior osteophytosis. This most p ronounced at L4-L5. Lower lumbar spine facet arthropathy. The overlying soft tissue appears unremark able. Sigmoid diverticula containing retained barium contrast from earlier barium swallow. IMPRESSION: 1. No acute fracture or dislocation is seen in the lumbar spine. 2. Mild multilevel degenerative disc disease most pronounced at L4-L5. 3. Sigmoid diverticulosis.
== END | disposition home or self-care (01) ==
LOC: RADXRMAIN 16:20
PROVIDERS: ATTEND Family Medicine
DX: M51.36 Other intervertebral disc degeneration, lumbar region (principal); K57.30 Diverticulosis of large intestine without perforation or abscess without bleeding
CPT/HCPCS: 72100

== ENCOUNTER 2022-11-27 00:04 | Emergency (ER) | payer BC ==
[2022-11-27 00:14] VITALS: TEMP 98.6
--- NOTE | 2022-11-27 01:03 | ED ---
General Adult HPI - General Chief complaint: Abdominal Pain Stated complaint: Pancreatitis Time Seen by Provider: 11/27/22 00:58 Source: patient, RN notes reviewed, old records reviewed Mode of arrival: ambulatory Limitations: no limitations - History of Present Illness Initial comments: 47-year-old male presents to the emergency room with upper mid and right upper quadrant abdominal pain radiating into his back since 10:30 this evening. Patient states pain woke him up and is sharp in nature. Does have a history of pancreatitis. States that he had a barium swallow month and a half ago and he has had pain since. Did see his primary care Dr. Larose on Friday and had blood work done, was told today this is chronic pancreatitis. He was instructed to follow-up with Dr. Kiser and has a scheduled appointment on December 10. Patient states he used to be a heavy drinker but has not had an alcoholic beverage in 18 years. Denies any fevers. No vomiting or diarrhea. Does have a history of diabetes, hypertension, hyperlipidemia -: hour(s) (3) Location: abdomen Radiation: back Severity scale (1-10): 8 Quality: sharp, constant Consistency: constant Improves with: none Worsens with: none Associated Symptoms: denies other symptoms Treatments Prior to Arrival: other (Excedrin and Motrin) - Related Data Home Medications Medication Instructions Recorded Confirmed Fenofibrate Nanocrystallized 145 mg PO DAILY 04/14/14 06/29/22 [Tricor] Lipase/Protease/Amylase [Kaleb Pettit 1 cap PO AC-BID 04/30/14 06/29/22 6,000 Unit Capsule] Losartan Potassium [Cozaar] 100 mg PO DAILY 12/14/14 06/29/22 Pioglitazone [Actos] 30 mg PO DAILY 02/28/19 06/29/22 Empagliflozin [Jardiance] 25 mg PO DAILY 06/29/22 06/29/22 Insulin Glargine,Hum.rec.anlog 74 units SQ DAILY 06/29/22 06/29/22 [Ebenezer Cabral] Previous Rx's Medication Instructions Recorded Simvastatin [Zocor] 40 mg PO HS #30 tab 08/06/17 hydroCHLOROthiazide [Hydrodiuril] 25 mg PO DAILY #30 tab 08/06/17 Ibuprofen [Motrin] 800 mg PO Q8HR PRN #30 tab 06/29/22 Ondansetron Odt [Zofran Odt] 4 mg PO Q8HR PRN #10 tab 06/29/22 Famotidine [Pepcid] 20 mg PO BID #150 ml 10/01/22 Allergies Allergy/AdvReac Type Severity Reaction Status Date / Time shellfish derived Allergy Severe Rash/Hives Verified 11/27/22 00:14 hydrocodone bitartrate Allergy Rash/Hives/ Verified 11/27/22 00:14 [From [place]] Weakness Review of Systems ROS Statement: Those systems with pertinent positive or pertinent negative responses have been documented in the HPI. ROS Other: All systems not noted in ROS Statement are negative. Past Medical History Past Medical History: Diabetes Mellitus, Hyperlipidemia, Hypertension Additional Past Medical History / Comment(s): IDDM type II, high triglycerides, chronic pancreatitis, diverticular dx, esophageal stricture, dysphagia, gastirc ulcer, migraines. History of Any Multi-Drug Resistant Organisms: None Reported Past Surgical History: No Surgical Hx Reported Additional Past Surgical History / Comment(s): EGDs/dilatations, colonoscopy. Past Anesthesia/Blood Transfusion Reactions: No Reported Reaction Past Psychological History: No Psychological Hx Reported Smoking Status: Current every day smoker Past Alcohol Use History: None Reported Past Drug Use History: None Reported - Past Family History Father Family Medical History: Cancer, Diabetes Mellitus, Hyperlipidemia, Hypertension, Myocardial Infarction ([place]) Additional Family Medical History / Comment(s): SMOKER- HAD CANCER OF [place], AT AGE 58. FATHER HAD MULTIPLE MIs AND HIS FIRST PR WAS IN HIS LATE 40s OR 50s. Mother Family Medical History: Diabetes Mellitus, Dialysis, Hyperlipidemia, Hypertension, Renal Disease General Exam Limitations: no limitations General appearance: alert, in no apparent distress Head exam: Present: atraumatic Eye exam: Present: normal appearance. Absent: scleral icterus, conjunctival injection, periorbital swelling ENT exam: Present: mucous membranes moist Neck exam: Present: full ROM Respiratory exam: Absent: respiratory distress, accessory muscle use Cardiovascular Exam: Present: regular rate GI/Abdominal exam: Present: soft, tenderness Extremities exam: Present: full ROM, normal capillary refill. Absent: pedal edema Neurological exam: Present: alert, oriented X3 Psychiatric exam: Present: normal affect, normal mood Skin exam: Present: warm, dry, normal color. Absent: cyanosis, diaphoretic, petechiae, pallor Course Vital Signs 11/27/22 11/27/22 00:12 03:18 Temperature 98.6 F Pulse Rate 74 65 Respiratory 18 16 Rate Blood Pressure 129/86 112/69 O2 Sat by Pulse 97 99 Oximetry Medical Decision Making - Medical Decision Making Was pt. sent in by a medical professional or institution (, [facility], [employer] OPERATOR, urgent care, hospital, or longterm...) When possible be specific @ -No Did you speak to anyone other than the patient for history (EMS, parent, family, police, friend...)? What history was obtained from this source @ -No Did you review nursing and triage notes (agree or disagree)? Why? @ -I reviewed and agree with nursing and triage notes Were old charts reviewed (outside hosp., previous admission, EMS record, old EKG, old radiological studies, urgent care reports/EKG's, longterm records)? Report findings @ -MRI report December 2021, previous labs in June Differential Diagnosis (chest pain, altered mental status, abdominal pain women, abdominal pain men, vaginal bleeding, weakness, fever, dyspnea, syncope, headache, dizziness, GI bleed, back pain, seizure, CVA, palpatations, mental health, musculoskeletal)? @ -Differential Abdominal Pain Men: Appendicitis, cholecystitis, diverticulosis, ischemic bowel, pancreatitis, hepatitis, UTI, gastroenteritis, AAA, incarcerated hernia, bowel obstruction, constipation, inflammatory bowel, hepatitis, peptic ulcer disease, splenic infarction, perforated viscus, testicular torsion, this is not meant to be an al l-inclusive list EKG interpreted by me (3pts min.). @ -n/a X-rays interpreted by me (1pt min.). @ -None done CT interpreted by me (1pt min.). @ -None done U/S interpreted by me (1pt. min.). @ -None done What testing was considered but not performed or refused? (CT, X-rays, U/S, labs)? Why? @ -None What meds were considered but not given or refused? Why? @ -None Did you discuss the management of the patient with other professionals (professionals i.e. JUSTINE Murguia, [employer] OPERATOR, lab, RT, psych nurse, social work case manager, job setter honing, teacher, penal officer, home health care case manager)? Give summary @ -No Was smoking cessation discussed for >3mins.? @ -No Was critical care preformed (if so, how long)? @ -No Were there social determinants of health that impacted care today? How? (Homelessness, low income, unemployed, alcoholism, drug addiction, transportation, low edu. Level, literacy, decrease access to med. care, half-way, rehab)? @ -No Was there de-escalation of care discussed even if they declined (Discuss DNR or withdrawal of care, Hospice)? DNR status @ -No What co-morbidities impacted this encounter? (DM, HTN, Smoking, COPD, CAD, Cancer, CVA, ARF, Chemo, Hep., AIDS, mental health diagnosis, sleep apnea, morbid obesity)? @ -Does have a history of diabetes, hypertension, hyperlipidemia, history of alcoholism Was patient admitted / discharged? Hospital course, mention meds given and route, prescriptions, significant lab abnormalities, going to OR and other pertinent info. @ -Discharged 47-year-old male presents to the emergency room with upper mid and right upper quadrant abdominal pain radiating into his back since 10:30 this evening. Patient states pain woke him up and is sharp in nature. Does have a history of pancreatitis. States that he had a barium swallow month and a half ago and he has had pain since. Did see his primary care Dr. Larose on Friday and had blood work done, was told today this is chronic pancreatitis. He was instructed to follow-up with Dr. Kiser and has a scheduled appointment on December 10. Patient states he used to be a heavy drinker but has not had an alcoholic beverage in 18 years. Denies any fevers. No vomiting or diarrhea. Previous medical records reviewed showing MRI of the pancreas performed with and without contrast on February 2022 showing a dilated pancreatic duct involving the tail of the pancreas with pancreatic atrophy. Probably post inflammatory changes and atrophy and not changed compared to CT December 2021. No suspicious pancreatic mass. There is evidence of an irregular 1.5 cm pseudocyst at the junction of the body and tail of the pancreas. This appears unchanged compared to computed tomography scan. Patient was given IV fluids and fentanyl, observed asleep on the cart with family at bedside. States improvement in his pain. Labs show no evidence of leukocytosis. Hemoglobin and hematocrit are stable. Amylase 219, lipase 1950. Previous lipase levels in June were 8522. Patient is agreeable to being discharged home with follow-up with his primary care doctor tomorrow and keep his appointment with Dr. Kiser December 10. Directed to return to the emergency room with any new or concerning symptoms. Case discussed with Dr. Dewitt. Undiagnosed new problem with uncertain prognosis? @ -No Drug Therapy requiring intensive monitoring for toxicity (Heparin, Nitro, Insulin, Cardizem)? @ -No Were any procedures done? @ -No Diagnosis/symptom? @ -Chronic pancreatitis, abdominal pain Acute, or Chronic, or Acute on Chronic? @ -Acute on chronic Uncomplicated (without systemic symptoms) or Complicated (systemic symptoms)? @ -Uncomplicated Side effects of treatment? @ -No Exacerbation, Progression, or Severe Exacerbation? @ -No Poses a threat to life or bodily function? How? (Chest pain, [place], [place], pneumonia, PE, COPD, DKA, ARF, appy, cholecystitis, CVA, Diverticulitis, Homicidal, Suicidal, threat to staff... and all critical care pts) @ -No - Lab Data Result diagrams: 11/27/22 00:52 11/27/22 00:52 Lab Results 11/27/22 11/27/22 11/27/22 Range/Units 00:52 00:52 00:57 WBC 10.4 (3.8-10.6) k/uL RBC 4.55 (4.30-5.90) m/uL Hgb 12.5 L (13.0-17.5) gm/dL Hct 40.7 (39.0-53.0) % MCV 89.4 (80.0-100.0) fL MCH 27.4 (25.0-35.0) pg MCHC 30.7 L (31.0-37.0) g/dL RDW 13.5 (11.5-15.5) % Plt Count 274 (150-450) k/uL MPV 6.7 Neutrophils % 60 % Lymphocytes % 30 % Monocytes % 5 % Eosinophils % 3 % Basophils % 1 % Neutrophils # 6.2 (1.3-7.7) k/uL Lymphocytes # 3.1 (1.0-4.8) k/uL Monocytes # 0.5 (0-1.0) k/uL Eosinophils # 0.4 (0-0.7) k/uL Basophils # 0.1 (0-0.2) k/uL Sodium 133 L (137-145) mmol/L Potassium 4.0 (3.5-5.1) mmol/L Chloride 103 (98-107) mmol/L Carbon Dioxide 18 L (22-30) mmol/L Anion Gap 12 mmol/L BUN 22 H (9-20) mg/dL Creatinine 1.06 (0.66-1.25) mg/dL Est GFR (CKD-EPI)AfAm >90 (>60 ml/min/1.73 sqM) Est GFR (CKD-EPI)NonAf 83 (>60 ml/min/1.73 sqM) Glucose 304 H (74-99) mg/dL Calcium 9.3 (8.4-10.2) mg/dL Total Bilirubin 0.4 (0.2-1.3) mg/dL AST 18 (17-59) U/L ALT 15 (4-49) U/L Alkaline Phosphatase 60 (38-126) U/L Total Protein 7.0 (6.3-8.2) g/dL Albumin 4.1 (3.5-5.0) g/dL Amylase 219 H (30-110) U/L Lipase 1951 H (23-300) U/L Urine Color Colorless Urine Appearance Clear (Clear) Urine pH 5.0 (5.0-8.0) Ur Specific [place] 1.011 (1.001-1.035) Urine Protein Negative (Negative) Urine Glucose (UA) 4+ H (Negative) Urine Ketones Negative (Negative) Urine Blood Negative (Negative) Urine Nitrite Negative (Negative) Urine Bilirubin Negative (Negative) Urine Urobilinogen 0.2 (<2.0) mg/dL Ur Leukocyte Esterase Negative (Negative) Disposition Clinical Impression: Chronic pancreatitis, Abdominal pain Disposition: HOME SELF-CARE Condition: Good Instructions (If sedation given, give patient instructions): Pancreatitis (ED), Abdominal Pain (ED) Additional Instructions: Increase your fluid intake. Take pain medication as needed. Follow-up with the primary care doctor tomorrow. Keep your appointment with Dr. Kiser as scheduled December 10. Return to the emergency room with any new or concerning symptoms. Is patient prescribed a controlled substance at d/c from ED?: No Referrals: Shahid Larose MD [Primary Care Provider] - 1-2 days Time of Disposition: 02:27
[2022-11-27 01:20] LABS: Basophils # (A) 0.1 k/uL (0-0.2); Basophils % (A) 1 %; Eosinophils # (A) 0.4 k/uL (0-0.7); Eosinophils % (A) 3 %; HCT 40.7 % (39.0-53.0); HGB 12.5 gm/dL (13.0-17.5); Lymphocytes # (A) 3.1 k/uL (1.0-4.8); Lymphocytes % (A) 30 %; MCH 27.4 pg (25.0-35.0); MCHC 30.7 g/dL (31.0-37.0); MCV 89.4 fL (80.0-100.0); Mean Platelet Volume 6.7; Monocytes # (A) 0.5 k/uL (0-1.0); Monocytes % (A) 5 %; Neutrophils # (A) 6.2 k/uL (1.3-7.7); Neutrophils % (A) 60 %; Platelet Count 274 k/uL (150-450); RBC 4.55 m/uL (4.30-5.90); RDW 13.5 % (11.5-15.5); WBC 10.4 k/uL (3.8-10.6)
[2022-11-27] MEDS ORDERED: SODIUM CHLORIDE 0.9% 1,000 ML IV ONE (01:30)
[2022-11-27] MEDS ORDERED: SODIUM CHLORIDE 0.9% 1,000 ML IV SCH (01:30)
[2022-11-27] MEDS ORDERED: fentaNYL (PF) 50 MCG/ML 2 ML AMP IVP STA (01:30)
[2022-11-27 01:43] LABS: ALT 15 U/L (4-49); AST 18 U/L (17-59); African American GFR (CKD) >90 (>60 ml/min/1.73 sqM); Albumin 4.1 g/dL (3.5-5.0); Alkaline Phosphatase 60 U/L (38-126); Amylase 219 U/L (30-110); Anion Gap 12 mmol/L; Blood Urea Nitrogen 22 mg/dL (9-20); Calcium 9.3 mg/dL (8.4-10.2); Carbon Dioxide 18 mmol/L (22-30); Chloride 103 mmol/L (98-107); Glucose 304 mg/dL (74-99); Lipase 1951 U/L (23-300); Non-African American GFR(CKD) 83 (>60 ml/min/1.73 sqM); Sodium 133 mmol/L (137-145); Total Bilirubin 0.4 mg/dL (0.2-1.3)
[2022-11-27 01:52] LABS: Appearance,Urine Clear (Clear); Bilirubin,Urine Negative (Negative); Color,Urine Colorless; Glucose,Urine (UA) 4+ (Negative); Ketones,Urine Negative (Negative); Protein,Urine Negative (Negative); Specific Gravity,Urine 1.011 (1.001-1.035)
[2022-11-27 01:53] LABS: Blood,Urine Negative (Negative); Leukocyte Esterase,Urine Negative (Negative); Nitrite,Urine Negative (Negative); Urobilinogen,Urine 0.2 mg/dL (<2.0)
[2022-11-27] MEDS ORDERED: ACET/COD 300 MG/30 MG STARTER PACK 6 TAB BTL PO STA (02:29)
[2022-11-27 03:19] VITALS: BP 112/69; PULSE 65; RESP 16
== END 2022-11-27 03:19 | disposition home or self-care (01) ==
LOC: EC 00:04
DX: K86.1 Other chronic pancreatitis (principal); E11.9 Type 2 diabetes mellitus without complications; E78.5 Hyperlipidemia, unspecified; I10 Essential (primary) hypertension; F17.200 Nicotine dependence, unspecified, uncomplicated; Z88.5 Allergy status to narcotic agent; Z91.013 Allergy to seafood; Z79.4 Long term (current) use of insulin; Z79.84 Long term (current) use of oral hypoglycemic drugs; Z79.899 Other long term (current) drug therapy
CPT/HCPCS: 36415; 80053; 82150; 83690; 85025; 81003; 99284; 96374; 96361; J3010

== ENCOUNTER → 2022-12-23 | Outpatient (CLI) | payer BC ==
--- NOTE | 2022-12-27 17:04 | MR ---
EXAMINATION TYPE: MR abdomen wo/w con DATE OF EXAM: 12/23/2022 4:29 PM INDICATION: Patient age:Male; 47 years old; Reason for study: K86.0 ALCOHOL-INDUCED CHRONIC PANCREATITIS; . Pancreatitis COMPARISON: 02/13/2022 TECHNIQUE: Multiplanar multi-sequence imaging was performed without contrast. Post contrast imaging was performed. Post IV contrast subtraction images were also submitted for review. IV Contrast: 8.5 cc Gadavist FINDINGS: LOWER CHEST: No gross irregularity. ABDOMEN Liver: Signal dropout on chemical shift in phase imaging. Gallbladder and Bile ducts: Unremarkable. Pancreas: There new dilation of the pancreatic duct measuring up to 6 mm, previously within normal li mits at 2 mm on 02/13/2022. Multiple dilated sidebranches are also present. Pancreatic head cysts shanika suring up to 9 mm are new from prior. Additional smaller high T2 signal foci are seen throughout the parenchyma. No definitive mass visualized. There is heterogenous appearance to the pancreatic parenchyma. Periphe rally calcified lesion in the pancreatic tail remains present without enhancement. No abnormal enhanc ement within the cysts within the pancreas. No organizing fluid collections visualized. Spleen: Signal dropout on chemical shift in phase imaging. Adrenal glands: Unremarkable. Kidneys: Unremarkable. Stomach and Bowel: Unremarkable as visualized. Peritoneum: No evidence of pneumoperitoneum or free fluid. Vasculature: Unremarkable. No aortic aneurysm. Musculoskeletal: The osseous structures appear intact. Lymph Nodes: No gross evidence for lymphadenopathy. Abdominal wall: Unremarkable. IMPRESSION: 1. New dilation of the pancreatic duct with multiple dilated side branches. Findings could relate to stricture from prior pancreatitis with obstructing mass also remaining possible. ERCP could provide further evaluation and possibly tissue sampling. 2. Pancreatic cysts likely representing sequela of prior pancreatitis versus side branch intraductal papillary mucinous neoplasms. No organizing fluid collections. 3. Findings suggestive of iron deposition within the liver and spleen.
== END | disposition home or self-care (01) ==
LOC: RADMRIMAIN 15:23
PROVIDERS: ATTEND Internal Medicine Gastroenterology
DX: K86.0 Alcohol-induced chronic pancreatitis (principal); K86.2 Cyst of pancreas; K85.90 Acute pancreatitis without necrosis or infection, unspecified; K86.89 Other specified diseases of pancreas
CPT/HCPCS: 74183; A9585

== ENCOUNTER 2023-01-17 13:01 | Day surgery (SDC) | payer BC ==
[2023-01-17 13:20] VITALS: BMI 23.9
[2023-01-17] MEDS ORDERED: LIDOCAINE 1% (10MG/ML) FOR IV START INTRADERMA PRN (14:10)
[2023-01-17] MEDS ORDERED: LACTATED RINGERS 1,000 ML IV SCH (14:10)
[2023-01-17 14:35] LABS: Glucose,Whole Blood 95 mg/dL (70-110)
[2023-01-17] MEDS ORDERED: PROPOFOL 10 MG/ML 20 ML VIAL IV ONE (15:01)
[2023-01-17] MEDS ORDERED: LIDOCAINE 2% INJ 20 MG/ML (2 ML VIAL) ONE (15:01)
--- NOTE | 2023-01-17 15:14 | P.PCN ---
Date of Procedure: 01/17/23 Procedure(s) Performed: BRIEF HISTORY: Patient is a 47-year-old, pleasant, white male scheduled for an upper endoscopy as a part of evaluation of intermittent dysphagia to solids for the last 20 years duration. He was diagnosed with esophageal stricture approximately 20 years ago and fish time he underwent dilation. He recently had an episode of acute food impaction admitted to the emergency room that symptoms resolved spontaneously. He scheduled for an upper endoscopy with possible dilation today.. PROCEDURE PERFORMED: Esophagogastroduodenoscopy with dilation and biopsy. PREOPERATIVE DIAGNOSIS: Intermittent dysphagia to solids and recent episode of food impaction. IV sedation per anesthesia. PROCEDURE: After informed consent was obtained, the patient was brought into the endoscopy unit. IV sedation was administered by Anesthesia under continuous monitoring. Initially the Olympus GIF-140 video endoscope was inserted into the mouth. Esophagus intubated without any difficulty. It was gradually advanced into the stomach and duodenum and carefully examined. The bulb and the second part of the duodenum appeared normal. The scope at this time was withdrawn to the stomach, adequately insufflated with air, and upon careful examination, mucosa of the antrum, body, cardia and the fundus appeared normal. The scope was then withdrawn into the esophagus. The GE junction was located at 39 cm from the incisors. There was a tight stricture noted in the distal esophagus and this was dilated using 12 and 13.5 mm TTS balloon in a sequential fashion for 30 seconds. The rest of the esophagus appeared normal. There were no erosions or ulcerations seen, superficial mucosal rings noted in the mid esophagus and multiple biopsies were done from this area to evaluate for eosinophilic esophagitis and the patient tolerated the procedure well. IMPRESSION: 1. Tight distal esophageal stricture status post balloon dilation using 12 and 13.5 mm TTS balloon as described above. 2. Superficial mucosal rings in the mid esophagus status post multiple biopsies to evaluate for eosinophilic esophagitis.. RECOMMENDATIONS: The findings of this examination were discussed with the patient as well as a family. He was advised to follow with the biopsy results. He'll remain on a clear liquid diet for lunch today. Follow up in office in 3-4 weeks..
[2023-01-17 15:34] VITALS: TEMP 97.8
[2023-01-17 15:40] LABS: Glucose,Whole Blood 75 mg/dL (70-110)
[2023-01-17 15:40] LABS: Glucose,Whole Blood 111 mg/dL (70-110)
[2023-01-17 15:43] VITALS: BP 114/78; PULSE 66; RESP 16
== END 2023-01-17 16:01 | disposition home or self-care (01) ==
LOC: ORWHC2ENDO 13:01
PROVIDERS: ATTEND Internal Medicine Gastroenterology
DX: K21.00 Gastro-esophageal reflux disease with esophagitis, without bleeding (principal); K22.2 Esophageal obstruction; I10 Essential (primary) hypertension; E78.5 Hyperlipidemia, unspecified; E11.9 Type 2 diabetes mellitus without complications; F17.210 Nicotine dependence, cigarettes, uncomplicated; G43.909 Migraine, unspecified, not intractable, without status migrainosus; Z79.899 Other long term (current) drug therapy
CPT/HCPCS: 88305; 43239; 43249; J2704; J2001; C1726

== ENCOUNTER 2023-08-17 10:44 | Emergency (ER) | payer BC ==
--- NOTE | 2023-08-17 10:57 | ED ---
Abdominal Pain HPI - General Source: patient, RN notes reviewed Mode of arrival: ambulatory Limitations: no limitations <Gianna Tsang - Last Filed: 08/17/23 10:56> <Trevon Dewitt - Last Filed: 08/17/23 14:41> - General Stated Complaint: Abdominal Pain Time Seen by Provider: 08/17/23 10:56 - History of Present Illness Initial Comments: Quick note: 48-year-old male presented to the ER with a chief complaint of abdominal pain. Known past medical history of pancreatitis for which she is prescribed Percocet. He states pain started to exacerbate about 230 this morning. He tried taking Percocet twice without relief. Endorses nausea vomiting and chills. Denies any constipation diarrhea or fevers. (Gianna Tsang) 48-year-old male with chronic pancreatitis. Patient states he has not had an alcoholic drink in 20 years. He states his pancreatitis was initially secondary to alcohol but that he currently has a pancreatic stone. He has been seen at [facility] and has had attempts to remove the stone without success. Patient developed symptoms consistent with previous pancreatitis with gastric abdominal pain nausea and vomiting. (Trevon Dewitt) - Related Data Home Medications Medication Instructions Recorded Confirmed Fenofibrate Nanocrystallized 145 mg PO DAILY 04/14/14 01/17/23 [Tricor] Lipase/Protease/Amylase [Creon Dr 1 cap PO AC-BID 04/30/14 01/17/23 6,000 Unit Capsule] Losartan Potassium [Cozaar] 100 mg PO DAILY 12/14/14 01/17/23 Pioglitazone [Actos] 30 mg PO DAILY 02/28/19 01/17/23 Empagliflozin [Jardiance] 25 mg PO DAILY 06/29/22 01/17/23 Insulin Glargine,Hum.rec.anlog 50 units SQ DAILY 06/29/22 01/17/23 [Ebenezer Cabral] Previous Rx's Medication Instructions Recorded Simvastatin [Zocor] 40 mg PO HS #30 tab 08/06/17 hydroCHLOROthiazide [Hydrodiuril] 25 mg PO DAILY #30 tab 08/06/17 Ibuprofen [Motrin] 800 mg PO Q8HR PRN #30 tab 06/29/22 Famotidine [Pepcid] 20 mg PO BID #150 ml 10/01/22 Allergies Allergy/AdvReac Type Severity Reaction Status Date / Time shellfish derived Allergy Severe Rash/Hives Verified 01/17/23 14:11 hydrocodone bitartrate Allergy Rash/Hives/ Verified 01/17/23 14:11 [From Hansen] Weakness Review of Systems ROS Other: All systems not noted in ROS Statement are negative. <Gianna Tsang - Last Filed: 08/17/23 10:56> ROS Other: All systems not noted in ROS Statement are negative. <MurraytitaTrevon - Last Filed: 08/17/23 14:41> ROS Statement: Those systems with pertinent positive or pertinent negative responses have been documented in the HPI. Past Medical History Past Medical History: Diabetes Mellitus, Hyperlipidemia, Hypertension Additional Past Medical History / Comment(s): IDDM type II, high triglycerides, chronic pancreatitis, diverticular dx, esophageal stricture, dysphagia, gastirc ulcer, migraines. History of Any Multi-Drug Resistant Organisms: None Reported Past Surgical History: No Surgical Hx Reported Additional Past Surgical History / Comment(s): EGDs/dilatations, colonoscopy. Past Anesthesia/Blood Transfusion Reactions: No Reported Reaction Smoking Status: Current every day smoker - Past Family History Father Family Medical History: Cancer, Diabetes Mellitus, Hyperlipidemia, Hypertension, Myocardial Infarction ([place]) Additional Family Medical History / Comment(s): SMOKER- HAD CANCER OF LARNYX, AT AGE 58. FATHER HAD MULTIPLE MIs AND HIS FIRST IN WAS IN HIS LATE 40s OR 50s. Mother Family Medical History: Diabetes Mellitus, Dialysis, Hyperlipidemia, Hypertension, Renal Disease <Gianna Tsang - Last Filed: 08/17/23 10:56> General Exam <Gianna Tsang - Last Filed: 08/17/23 10:56> General appearance: alert, in no apparent distress Head exam: Present: atraumatic, normocephalic Eye exam: Present: normal appearance, PERRL ENT exam: Present: mucous membranes dry Neck exam: Present: normal inspection Respiratory exam: Present: normal lung sounds bilaterally. Absent: respiratory distress, wheezes Cardiovascular Exam: Present: regular rate, normal rhythm GI/Abdominal exam: Present: soft, tenderness. Absent: distended, guarding, rebound Neurological exam: Present: alert, oriented X3 Psychiatric exam: Present: normal affect, normal mood Skin exam: Present: warm, dry, intact. Absent: cyanosis, diaphoretic <Trevon Dewitt - Last Filed: 08/17/23 14:41> - General Exam Comments Initial Comments: Visual Physical Exam General: Hunched over, ill-appearing mildly jaundiced Head: Normocephalic, atraumatic Eyes: PERRLA, EOMI ENT: Airway patent Chest: Nonlabored breathing Skin: No visual rash, normal skin tone Neuro: Alert and oriented 3 Musculoskeletal: No gross abnormalities (Gianan Tsang) Course <Trevon Dewitt - Last Filed: 08/17/23 14:41> Vital Signs 08/17/23 08/17/23 08/17/23 11:12 13:00 14:35 Temperature 97.3 F L Pulse Rate 64 80 76 Respiratory 20 18 18 Rate Blood Pressure 138/75 144/85 128/76 O2 Sat by Pulse 100 97 96 Oximetry - Reevaluation(s) Reevaluation #1: 08/17/23 14:39 Patient reevaluated, symptoms significantly improved. (Trevon Dewitt) Medical Decision Making <Gianna Tsang - Last Filed: 08/17/23 10:56> - Lab Data Result diagrams: 08/17/23 11:40 08/17/23 12:25 <Trevon Dewitt - Last Filed: 08/17/23 14:41> - Medical Decision Making I performed the quick note portion of this chart. Electronically signed by Gianna Tsang PA-C (Gianna Tsang) Was pt. sent in by a medical professional or institution ([facility], [facility], urgent care, hospital, or [facility]...) When possible be specific @ -No Did you speak to anyone other than the patient for history (EMS, parent, family, police, friend...)? What history was obtained from this source @ -No Did you review nursing and triage notes (agree or disagree)? Why? @ -I reviewed and agree with nursing and triage notes Were old charts reviewed (outside hosp., previous admission, EMS record, old EKG, old radiological studies, urgent care reports/EKG's, [facility] records)? Report findings @ -No old charts were reviewed Differential Diagnosis @Differential Abdominal Pain Men: Appendicitis, cholecystitis, diverticulosis, ischemic bowel, pancreatitis, hepatitis, UTI, gastroenteritis, AAA, incarcerated hernia, bowel obstruction, constipation, inflammatory bowel, hepatitis, peptic ulcer disease, splenic infarction, perforated viscus, testicular torsion, this is not meant to be an all-inclusive list EKG interpreted by me (3pts min.). @ -As above X-rays interpreted by me (1pt min.). @ -None done CT interpreted by me (1pt min.). @ -None done U/S interpreted by me (1pt. min.). @ -None done What testing was considered but not performed or refused? (CT, X-rays, U/S, labs)? Why? @ -None What meds were considered but not given or refused? Why? @ -None Did you discuss the management of the patient with other professionals (professionals i.e. , PA, TRUCKMAN, lab, RT, psych nurse, aids social worker, airline reservation agent, teacher, electoral officer, pillowcase folder)? Give summary @ -No Was smoking cessation discussed for >3mins.? @ -No Was critical care preformed (if so, how long)? @ -No Were there social determinants of health that impacted care today? How? (Homelessness, low income, unemployed, alcoholism, drug addiction, transportation, low edu. Level, literacy, decrease access to med. care, halfway, rehab)? @ -No Was there de-escalation of care discussed even if they declined (Discuss DNR or withdrawal of care, Hospice)? DNR status @ -No What co-morbidities impacted this encounter? (DM, HTN, Smoking, COPD, CAD, Cancer, CVA, ARF, Chemo, Hep., AIDS, mental health diagnosis, sleep apnea, morbid obesity)? @ -Chronic pancreatitis Was patient admitted / discharged? Hospital course, mention meds given and route, prescriptions, significant lab abnormalities, going to OR and other pertinent info. @ -48-year-old male with history of chronic pancreatitis presenting with epig astric pain which is similar to previous episodes. Patient has an elevated white blood cell count, may be reactive secondary to vomiting, no fever, no tachycardia, stable blood pressure. Patient has normal CBC otherwise and normal CMP with a negative lipase. After initial treatment the patient is feeling better. I did offer observation for symptom control and hydration. Patient declines prefers discharge. He is given return parameters. Undiagnosed new problem with uncertain prognosis? @ -No Drug Therapy requiring intensive monitoring for toxicity (Heparin, Nitro, Insulin, Cardizem)? @ -No Were any procedures done? @ -No Diagnosis/symptom? @Abdominal pain Acute, or Chronic, or Acute on Chronic? @Acute on chronic Uncomplicated (without systemic symptoms) or Complicated (systemic symptoms)? @ -Default Side effects of treatment? @ -No Exacerbation, Progression, or Severe Exacerbation? @ -No Poses a threat to life or bodily function? How? (Chest pain, [place], [place], pneumonia, PE, COPD, DKA, ARF, appy, cholecystitis, CVA, Diverticulitis, Homicidal, Suicidal, threat to staff... and all critical care pts) @ -Low risk at this time (Trevon Dewitt) - Lab Data Lab Results 08/17/23 08/17/23 08/17/23 Range/Units 11:40 11:40 12:25 WBC 20.0 H (3.8-10.6) k/uL RBC 4.86 (4.30-5.90) m/uL Hgb 14.2 (13.0-17.5) gm/dL Hct 44.4 (39.0-53.0) % MCV 91.3 (80.0-100.0) fL MCH 29.2 (25.0-35.0) pg MCHC 32.0 (31.0-37.0) g/dL RDW 13.8 (11.5-15.5) % Plt Count 296 (150-450) k/uL MPV 6.9 Neutrophils % 89 % Lymphocytes % 7 % Monocytes % 3 % Eosinophils % 1 % Basophils % 0 % Neutrophils # 17.8 H (1.3-7.7) k/uL Lymphocytes # 1.3 (1.0-4.8) k/uL Monocytes # 0.5 (0-1.0) k/uL Eosinophils # 0.2 (0-0.7) k/uL Basophils # 0.1 (0-0.2) k/uL Sodium 140 (137-145) mmol/L Potassium 4.1 (3.5-5.1) mmol/L Chloride 108 H (98-107) mmol/L Carbon Dioxide 22 (22-30) mmol/L Anion Gap 10 mmol/L BUN 22 H (9-20) mg/dL Creatinine 0.96 (0.66-1.25) mg/dL Est GFR (CKD-EPI)AfAm >90 (>60 ml/min/1.73 sqM) Est GFR (CKD-EPI)NonAf >90 (>60 ml/min/1.73 sqM) Glucose 83 (74-99) mg/dL Plasma Lactic Acid James 1.8 (0.7-2.0) mmol/L Calcium 9.3 (8.4-10.2) mg/dL Total Bilirubin 0.5 (0.2-1.3) mg/dL AST 19 (17-59) U/L ALT 14 (4-49) U/L Alkaline Phosphatase 64 (38-126) U/L Total Protein 7.6 (6.3-8.2) g/dL Albumin 4.7 (3.5-5.0) g/dL Amylase 70 (30-110) U/L Lipase 48 (23-300) U/L Disposition <Gianna Tsang - Last Filed: 08/17/23 10:56> Is patient prescribed a controlled substance at d/c from ED?: No Time of Disposition: 14:41 <Trevon Dewitt - Last Filed: 08/17/23 14:41> Clinical Impression: Epigastric discomfort, Abdominal pain Disposition: HOME SELF-CARE Condition: Fair Instructions (If sedation given, give patient instructions): Abdominal Pain (ED) Referrals: Shahid Larose MD [Primary Care Provider] - 1-2 days
[2023-08-17 11:23] VITALS: TEMP 97.3
[2023-08-17 11:54] LABS: Basophils # (A) 0.1 k/uL (0-0.2); Basophils % (A) 0 %; Eosinophils # (A) 0.2 k/uL (0-0.7); Eosinophils % (A) 1 %; HCT 44.4 % (39.0-53.0); HGB 14.2 gm/dL (13.0-17.5); Lymphocytes # (A) 1.3 k/uL (1.0-4.8); Lymphocytes % (A) 7 %; MCH 29.2 pg (25.0-35.0); MCV 91.3 fL (80.0-100.0); Mean Platelet Volume 6.9; Monocytes # (A) 0.5 k/uL (0-1.0); Monocytes % (A) 3 %; Neutrophils # (A) 17.8 k/uL (1.3-7.7); Neutrophils % (A) 89 %; Platelet Count 296 k/uL (150-450); RBC 4.86 m/uL (4.30-5.90); RDW 13.8 % (11.5-15.5)
[2023-08-17 12:49] LABS: ALT 14 U/L (4-49); AST 19 U/L (17-59); African American GFR (CKD) >90 (>60 ml/min/1.73 sqM); Albumin 4.7 g/dL (3.5-5.0); Alkaline Phosphatase 64 U/L (38-126); Amylase 70 U/L (30-110); Anion Gap 10 mmol/L; Blood Urea Nitrogen 22 mg/dL (9-20); Calcium 9.3 mg/dL (8.4-10.2); Carbon Dioxide 22 mmol/L (22-30); Chloride 108 mmol/L (98-107); Glucose 83 mg/dL (74-99); Lipase 48 U/L (23-300); Non-African American GFR(CKD) >90 (>60 ml/min/1.73 sqM); Potassium 4.1 mmol/L (3.5-5.1); Sodium 140 mmol/L (137-145); Total Bilirubin 0.5 mg/dL (0.2-1.3); Total Protein 7.6 g/dL (6.3-8.2)
[2023-08-17] MEDS: SODIUM CHLORIDE 0.9% 1,000 ML IV ONE (13:01)
[2023-08-17] MEDS: HYDROmorphone 0.5 MG/0.5 ML SYRINGE IVP STA (13:02)
[2023-08-17] MEDS: ACETAMINOPHEN TAB 500 MG TAB PO STA (13:03)
[2023-08-17] MEDS: PANTOPRAZOLE 40 MG/10 ML VIAL IVP STA (13:06)
[2023-08-17 13:23] VITALS: RESP 18
[2023-08-17 14:42] VITALS: BP 128/76; PULSE 76
== END 2023-08-17 15:00 | disposition home or self-care (01) ==
LOC: EC 10:44
DX: R10.13 Epigastric pain (principal); F17.200 Nicotine dependence, unspecified, uncomplicated; Z91.013 Allergy to seafood; Z88.5 Allergy status to narcotic agent
CPT/HCPCS: 36415; 80053; 82150; 83605; 83690; 85025; 99284; 96374; 96375; 96361; C9113; J1170

== ENCOUNTER 2023-08-18 18:39 | Emergency (ER) | payer BC ==
[2023-08-18 18:45] VITALS: TEMP 97.4
[2023-08-18] MEDS: SODIUM CHLORIDE 0.9% 1,000 ML IV STA ×2 (19:58→20:44)
[2023-08-18 20:01] LABS: Basophils # (A) 0.1 k/uL (0-0.2); Basophils % (A) 0 %; Eosinophils # (A) 0.4 k/uL (0-0.7); Eosinophils % (A) 3 %; HCT 42.4 % (39.0-53.0); HGB 14.3 gm/dL (13.0-17.5); Lymphocytes % (A) 15 %; MCH 29.9 pg (25.0-35.0); MCHC 33.7 g/dL (31.0-37.0); MCV 88.8 fL (80.0-100.0); Monocytes # (A) 0.5 k/uL (0-1.0); Monocytes % (A) 4 %; Neutrophils # (A) 10.7 k/uL (1.3-7.7); Neutrophils % (A) 78 %; Platelet Count 300 k/uL (150-450); RBC 4.77 m/uL (4.30-5.90); RDW 13.8 % (11.5-15.5); WBC 13.8 k/uL (3.8-10.6)
[2023-08-18 20:11] LABS: Appearance,Urine Clear (Clear); Bilirubin,Urine Negative (Negative); Blood,Urine Trace (Negative); Color,Urine Colorless; Glucose,Urine (UA) 4+ (Negative); Ketones,Urine Trace (Negative); Leukocyte Esterase,Urine Negative (Negative); Nitrite,Urine Negative (Negative); Protein,Urine Negative (Negative); RBC,Urine 1 /hpf (0-5); Specific Gravity,Urine 1.012 (1.001-1.035); Urobilinogen,Urine <2.0 mg/dL (<2.0); WBC,Urine <1 /hpf (0-5)
[2023-08-18 20:18] LABS: ALT 12 U/L (4-49); AST 17 U/L (17-59); African American GFR (CKD) >90 (>60 ml/min/1.73 sqM); Albumin 4.5 g/dL (3.5-5.0); Alkaline Phosphatase 70 U/L (38-126); Amylase 70 U/L (30-110); Anion Gap 15 mmol/L; Blood Urea Nitrogen 18 mg/dL (9-20); Calcium 9.6 mg/dL (8.4-10.2); Carbon Dioxide 18 mmol/L (22-30); Chloride 104 mmol/L (98-107); Glucose 198 mg/dL (74-99); Lipase 90 U/L (23-300); Non-African American GFR(CKD) 87 (>60 ml/min/1.73 sqM); Potassium 3.9 mmol/L (3.5-5.1); Sodium 137 mmol/L (137-145); Total Bilirubin 0.5 mg/dL (0.2-1.3); Total Protein 7.5 g/dL (6.3-8.2)
--- NOTE | 2023-08-18 20:23 | ED ---
Abdominal Pain HPI - General Chief Complaint: Abdominal Pain Stated Complaint: Abd Pain Time Seen by Provider: 08/18/23 19:17 Source: patient Mode of arrival: ambulatory Limitations: no limitations - History of Present Illness Initial Comments: 48-year-old male with a past medical history significant for "chronic pancreatitis" which she reports is due to a "stone in his duct" presents to the ED with a chief complaint of abdominal pain. Patient reports last month had attempted removal of this stone and since then has developed worsening epigastric abdominal pain with some associated nausea, no vomiting. Was seen here yesterday and labs performed at that time including CBC, CMP, lipase amylase largely unremarkable. Was given pain control and at that point felt significantly better and stated that he would like to go home. Today, reports pain came back and seemed worse than usual prompting presentation to the ED for further evaluation. He reports that other than increased abdominal pain, no new symptoms. At this time denies nausea. Denies changes in bowel or bladder habits. Does note some chills however denies fever. No other complaints at this time. - Related Data Home Medications Medication Instructions Recorded Confirmed Fenofibrate Nanocrystallized 145 mg PO DAILY 04/14/14 01/17/23 [Tricor] Lipase/Protease/Amylase [Creon Dr 1 cap PO AC-BID 04/30/14 01/17/23 6,000 Unit Capsule] Losartan Potassium [Cozaar] 100 mg PO DAILY 12/14/14 01/17/23 Pioglitazone [Actos] 30 mg PO DAILY 02/28/19 01/17/23 Empagliflozin [Jardiance] 25 mg PO DAILY 06/29/22 01/17/23 Insulin Glargine,Hum.rec.anlog 50 units SQ DAILY 06/29/22 01/17/23 [Ebenezer Duff Solostsherry] Previous Rx's Medication Instructions Recorded Simvastatin [Zocor] 40 mg PO HS #30 tab 08/06/17 hydroCHLOROthiazide [Hydrodiuril] 25 mg PO DAILY #30 tab 08/06/17 Ibuprofen [Motrin] 800 mg PO Q8HR PRN #30 tab 06/29/22 Famotidine [Pepcid] 20 mg PO BID #150 ml 10/01/22 Allergies Allergy/AdvReac Type Severity Reaction Status Date / Time shellfish derived Allergy Severe Rash/Hives Verified 01/17/23 14:11 hydrocodone bitartrate Allergy Rash/Hives/ Verified 01/17/23 14:11 [From Golva] Weakness Review of Systems ROS Statement: Those systems with pertinent positive or pertinent negative responses have been documented in the HPI. ROS Other: All systems not noted in ROS Statement are negative. Past Medical History Past Medical History: Diabetes Mellitus, Hyperlipidemia, Hypertension Additional Past Medical History / Comment(s): IDDM type II, high triglycerides, chronic pancreatitis, diverticular dx, esophageal stricture, dysphagia, gastirc ulcer, migraines. History of Any Multi-Drug Resistant Organisms: None Reported Past Surgical History: No Surgical Hx Reported Additional Past Surgical History / Comment(s): EGDs/dilatations, colonoscopy. Past Anesthesia/Blood Transfusion Reactions: No Reported Reaction Past Psychological History: No Psychological Hx Reported Smoking Status: Current every day smoker Past Alcohol Use History: None Reported Past Drug Use History: None Reported - Past Family History Father Family Medical History: Cancer, Diabetes Mellitus, Hyperlipidemia, Hypertension, Myocardial Infarction (MD) Additional Family Medical History / Comment(s): SMOKER- HAD CANCER OF LARNYX, AT AGE 58. FATHER HAD MULTIPLE MIs AND HIS FIRST MD WAS IN HIS LATE 40s OR 50s. Mother Family Medical History: Diabetes Mellitus, Dialysis, Hyperlipidemia, Hypertension, Renal Disease General Exam Limitations: no limitations General appearance: alert Eye exam: Present: normal appearance Neck exam: Present: normal inspection Respiratory exam: Present: normal lung sounds bilaterally Cardiovascular Exam: Present: regular rate GI/Abdominal exam: Present: soft (Epigastric tenderness to palpation. No rebound guarding or rigidity. Bowel sounds present.) Neurological exam: Present: alert, oriented X3 Skin exam: Present: warm, dry Course Vital Signs 08/18/23 08/18/23 18:41 21:46 Temperature 97.4 F L Pulse Rate 85 66 Respiratory 18 16 Rate Blood Pressure 159/70 111/69 O2 Sat by Pulse 99 96 Oximetry Medical Decision Making - Medical Decision Making Was pt. sent in by a medical professional or institution (, PA, FINISHED YARN EXAMINER, urgent care, hospital, or snf...) When possible be specific @ -No Did you speak to anyone other than the patient for history (EMS, parent, family, police, friend...)? What history was obtained from this source @ -No Did you review nursing and triage notes (agree or disagree)? Why? @ -I reviewed and agree with nursing and triage notes Were old charts reviewed (outside hosp., previous admission, EMS record, old EKG, old radiological studies, urgent care reports/EKG's, snf records)? Report findings @ -Reviewed yesterday's visit. For further details please HPI. Differential Diagnosis (chest pain, altered mental status, abdominal pain women, abdominal pain men, vaginal bleeding, weakness, fever, dyspnea, syncope, headache, dizziness, GI bleed, back pain, seizure, CVA, palpatations, mental health, musculoskeletal)? @ -Differential Abdominal Pain Men: Appendicitis, cholecystitis, diverticulosis, ischemic bowel, pancreatitis, h epatitis, UTI, gastroenteritis, AAA, incarcerated hernia, bowel obstruction, constipation, inflammatory bowel, hepatitis, peptic ulcer disease, splenic infarction, perforated viscus, testicular torsion, this is not meant to be an all-inclusive list EKG interpreted by me (3pts min.). @ -None X-rays interpreted by me (1pt min.). @ -None done CT interpreted by me (1pt min.). @ -CT abdomen pelvis interpreted me which revealed 7 mm stone in the pancreatic duct without fluid collection and findings consistent with chronic pancreatitis. No other acute findings. U/S interpreted by me (1pt. min.). @ -Ultrasound interpreted me which revealed the same as above. No other acute findings. What testing was considered but not performed or refused? (CT, X-rays, U/S, labs)? Why? @ -None What meds were considered but not given or refused? Why? @ -None Did you discuss the management of the patient with other professionals (professionals i.e. , PA, FINISHED YARN EXAMINER, lab, RT, psych nurse, manager social work, motion picture actor, teacher, disabilities services officer, transplant case manager)? Give summary @ -No Was smoking cessation discussed for >3mins.? @ -No Was critical care preformed (if so, how long)? @ -No Were there social determinants of health that impacted care today? How? (Homelessness, low income, unemployed, alcoholism, drug addiction, transportation, low edu. Level, literacy, decrease access to med. care, long term, rehab)? @ -No Was there de-escalation of care discussed even if they declined (Discuss DNR or withdrawal of care, Hospice)? DNR status @ -No What co-morbidities impacted this encounter? (DM, HTN, Smoking, COPD, CAD, Cancer, CVA, ARF, Chemo, Hep., AIDS, mental health diagnosis, sleep apnea, morbid obesity)? @ -Chronic pancreatitis Was patient admitted / discharged? Hospital course, mention meds given and route, prescriptions, significant lab abnormalities, going to OR and other pertinent info. @ -Discharge 48-year-old male with a past medical history significant for chronic pancreatitis presented to the ED with a chief complaint of abdominal pain. Patient also reports he had recent procedure with attempted removal of the stone at that show at [facility] and since then has had worsening pain. Patient seen here yesterday and provided pain control. Reports since then increased pain which prompted presentation to the ED today. Laboratory studies reviewed. Labs largely unremarkable. CT and ultrasound demonstrated a 7 mm stone in the pancreatic duct with no other findings. Case was to be discussed with GI for potential admission or transfer however at this time patient reports that he would like to go home. Discharged home in stable condition. Discussed return precautions with patient who verbalized agreement. Undiagnosed new problem with uncertain prognosis? @ -No Drug Therapy requiring intensive monitoring for toxicity (Heparin, Nitro, Insulin, Cardizem)? @ -No Were any procedures done? @ -No Diagnosis/symptom? @ -Abdominal pain, chronic pancreatitis Acute, or Chronic, or Acute on Chronic? @ -Acute on chronic Uncomplicated (without systemic symptoms) or Complicated (systemic symptoms)? @ -Uncomplicated Side effects of treatment? @ -No Exacerbation, Progression, or Severe Exacerbation? @ -No Poses a threat to life or bodily function? How? (Chest pain, USA, MD, pneumonia, PE, COPD, DKA, ARF, appy, cholecystitis, CVA, Diverticulitis, Homicidal, Suicidal, threat to staff... and all critical care pts) @ -Uncomplicated - Lab Data Result diagrams: 08/18/23 19:52 08/18/23 19:52 Lab Results 08/18/23 08/18/23 08/18/23 Range/Units 19:52 19:52 20:00 WBC 13.8 H (3.8-10.6) k/uL RBC 4.77 (4.30-5.90) m/uL Hgb 14.3 (13.0-17.5) gm/dL Hct 42.4 (39.0-53.0) % MCV 88.8 (80.0-100.0) fL MCH 29.9 (25.0-35.0) pg MCHC 33.7 (31.0-37.0) g/dL RDW 13.8 (11.5-15.5) % Plt Count 300 (150-450) k/uL MPV 7.0 Neutrophils % 78 % Lymphocytes % 15 % Monocytes % 4 % Eosinophils % 3 % Basophils % 0 % Neutrophils # 10.7 H (1.3-7.7) k/uL Lymphocytes # 2.0 (1.0-4.8) k/uL Monocytes # 0.5 (0-1.0) k/uL Eosinophils # 0.4 (0-0.7) k/uL Basophils # 0.1 (0-0.2) k/uL Sodium 137 (137-145) mmol/L Potassium 3.9 (3.5-5.1) mmol/L Chloride 104 (98-107) mmol/L Carbon Dioxide 18 L (22-30) mmol/L Anion Gap 15 mmol/L BUN 18 (9-20) mg/dL Creatinine 1.01 (0.66-1.25) mg/dL Est GFR (CKD-EPI)AfAm >90 (>60 ml/min/1.73 sqM) Est GFR (CKD-EPI)NonAf 87 (>60 ml/min/1.73 sqM) Glucose 198 H (74-99) mg/dL Calcium 9.6 (8.4-10.2) mg/dL Total Bilirubin 0.5 (0.2-1.3) mg/dL AST 17 (17-59) U/L ALT 12 (4-49) U/L Alkaline Phosphatase 70 (38-126) U/L Total Protein 7.5 (6.3-8.2) g/dL Albumin 4.5 (3.5-5.0) g/dL Amylase 70 (30-110) U/L Lipase 90 (23-300) U/L Urine Color Colorless Urine Appearance Clear (Clear) Urine pH 5.0 (5.0-8.0) Ur Specific [place] 1.012 (1.001-1.035) Urine Protein Negative (Negative) Urine Glucose (UA) 4+ H (Negative) Urine Ketones Trace H (Negative) Urine Blood Trace H (Negative) Urine Nitrite Negative (Negative) Urine Bilirubin Negative (Negative) Urine Urobilinogen <2.0 (<2.0) mg/dL Ur Leukocyte Esterase Negative (Negative) Urine RBC 1 (0-5) /hpf Urine WBC <1 (0-5) /hpf Disposition Clinical Impression: Pancreatitis, Abdominal pain Disposition: HOME SELF-CARE Condition: Good Additional Instructions: Please return to the Emergency Department if symptoms worsen or any other concerns. Please follow-up with your primary care provider and/your surgeon. Is patient prescribed a controlled substance at d/c from ED?: No Referrals: Shahid Larose MD [Primary Care Provider] - 1-2 days Time of Disposition: 22:23
[2023-08-18] MEDS: KETOROLAC 15 MG/ML 1 ML VIAL IVP STA (20:42)
[2023-08-18] MEDS: ACETAMINOPHEN TAB 500 MG TAB PO STA (20:42)
[2023-08-18] MEDS: HYDROmorphone 1 MG/ML 1 ML SYRINGE IVP STA (20:43)
--- NOTE | 2023-08-18 21:07 | CT ---
EXAMINATION TYPE: CT abdomen pelvis w con CT DLP: 1018.3 mGycm, Automated exposure control for dose reduction was used. DATE OF EXAM: 08/18/2023 8:43 PM COMPARISON: CT abdomen pelvis most recent from 12/26/2021 CLINICAL INDICATION:Male, 48 years old with history of Epigastric pain, hx "stone blockage"; being treated for pancreatic stone. Epigastric/right side abdominal pain and tolerable the last 2 days TECHNIQUE: Axial CT abdomen pelvis w con;Sagittal and coronal reformats were created on a separate w orkstation. Contrast used:100 ml mL of Isovue 300 with IV Contrast, (none if empty) Oral contrast used: without Oral Contrast (none if empty) FINDINGS: LOWER CHEST: Unremarkable ABDOMEN LIVER: Unremarkable GALLBLADDER AND BILE DUCTS: Unremarkable. PANCREAS: Fat stranding changes around the pancreas with scattered calcifications within the parenchy ma. Main pancreatic duct stone in the pancreatic head with main pancreatic duct dilation extending in to the tail measuring up to 7 mm. Dilation of the main pancreatic duct up to 7 mm. Stone appears mild ly enlarged from 2021 where it measured 5 mm. Pancreatic parenchyma enhances uniformly. SPLEEN: Unremarkable. ADRENAL GLANDS: Unremarkable. KIDNEYS AND URETERS: No evidence of hydronephrosis or renal calculus. The ureters are unremarkable. Left renal sinus vascular calcifications. PELVIS BLADDER: Unremarkable REPRODUCTIVE: Unremarkable. ABDOMEN & PELVIS STOMACH AND BOWEL: No evidence of bowel obstruction. Second and third portion duodenal diverticula ar e present.. Appendicolith measuring 10 mm noted. PERITONEUM/RETROPERITONEUM: No evidence of pneumoperitoneum or free fluid. VASCULATURE: No evidence of aortic aneurysm. MUSCULOSKELETAL: No acute osseous abnormalities LYMPH NODES: No gross evidence for lymphadenopathy. Multiple prominent lymph nodes are seen around th e upper abdomen and pancreas. SOFT TISSUE/ABDOMINAL WALL: Unremarkable IMPRESSION: Acute on chronic pancreatitis with 7 mm stone in the main pancreatic duct in the pancreatic head. Thi s is actually larger from 2021 where it measured 5 mm. No organizing fluid collection.
--- NOTE | 2023-08-18 21:23 | US ---
EXAMINATION TYPE: US gallbladder DATE OF EXAM: 08/18/2023 COMPARISON: CT: today CLINICAL INDICATION: Male, 48 years old with history of Epigastric pain, hx "stone blockage"; epigast [place] pain TECHNIQUE: Multiple sonographic images of the right upper quadrant are obtained. FINDINGS: EXAM MEASUREMENTS: Liver Length: 18.8 cm Gallbladder Wall: 0.2 cm CBD: 0.4 cm Right Kidney: 11.8 x 5.8 x 5.2 cm SONOGRAPHY TECHNOLOGIST NOTES: Pancreas: Duct measuring 6mm Liver: wnl Gallbladder: wnl Evidence for sonographic Duffy's sign: No CBD: wnl Right Kidney: wnl IMPRESSION: The patient's stone is in the main pancreatic duct as seen on CT same day. Pancreatitis findings less apparent on ultrasound. The calcified stone is also less apparent compared to CT same day.
[2023-08-18 21:51] VITALS: RESP 16
[2023-08-18 23:44] VITALS: BP 119/72; PULSE 64
== END 2023-08-18 22:45 | disposition home or self-care (01) ==
LOC: EC 18:39
DX: K85.90 Acute pancreatitis without necrosis or infection, unspecified (principal); K86.1 Other chronic pancreatitis; F17.200 Nicotine dependence, unspecified, uncomplicated; Z91.013 Allergy to seafood; Z88.5 Allergy status to narcotic agent
CPT/HCPCS: 36415; 80053; 82150; 83690; 85025; 81001; 76705; 74177; 99285; 96374; 96375; 96361; J1170; J1885; Q9967

== ENCOUNTER → 2024-07-29 | Outpatient (CLI) | payer OTHER ==
--- NOTE | 2024-07-29 09:31 | XR ---
EXAMINATION TYPE: XR shoulder complete RT DATE OF EXAM: 07/29/2024 9:28 AM INDICATION: Patient age:Male; 49 years old; Reason for study: M25.511 RIGHT SHOULDER PAIN; pain COMPARISON: Chest radiograph 11/12/2020 TECHNIQUE: The right shoulder was examined in AP, internally rotated and scapular Y projections. . FINDINGS: No evidence of acute osseous pathology, joint dislocation, or soft tissue swelling. The remaining por tions of the visualized chest are unremarkable. IMPRESSION: No acute osseous pathology. [facility], , 07/29/2024 9:29 AM
== END | disposition home or self-care (01) ==
LOC: RADXRMAIN 08:56
PROVIDERS: ATTEND Family Medicine
DX: M25.511 Pain in right shoulder (principal)

== ENCOUNTER → 2024-08-16 | Outpatient (CLI) | payer OTHER ==
--- NOTE | 2024-08-18 19:23 | MR ---
EXAMINATION TYPE: MR shoulder RT wo con DATE OF EXAM: 08/16/2024 7:42 PM COMPARISON: Shoulder radiographs. CLINICAL INDICATION: Male, 49 years old with history of M25.511; PHH, RT Shoulder pain and lack of mo vement over 1 year TECHNIQUE: Multi planar, multi sequence imaging was performed of the shoulder including: Axial and coronal irish n density fat-saturated sequences, T2 fat-saturated sagittal sequence, and T1-weighted imaging. No G adolinium was given. FINDINGS: Supraspinatus tendon: Increased signal within the tendon near the humerus. Bursal surface partial thickness tear of the posterior fibers measuring 6 x 6 mm. This extends into the infraspinatus anter ior fibers. Infraspinatus tendon: Increased signal within the tendon near the humerus. Subscapularis tendon: Intact Teres minor tendon: Intact Long head biceps tendon: Intact, fluid surrounding the proximal tendon and in the bicipital groov e. Normal insertion at the bicipital anchor. Acromioclavicular joint: Mild osteoarthrosis. Undersurface spurring impinging on the supraspinat us tendon. Small effusion. Glenohumeral joint: Mild osteoarthrosis. Cartilage thinning present.. No significant effusion.. . Glenoid labrum: Anterior labral tear, there is a SLAP tear also present Muscle volume: Normal. Bone marrow: Intraosseous ganglion cyst near the lesser tubercle, degeneration changes with bony edema particularly around the acromioclavicular joint. Soft tissues: The inferior glenohumeral ligament appears disconnected posteriorly to the humerus. . Joint/bursal fluid: Trace fluid in the subacromial bursa. IMPRESSION: 1. Supraspinatus and infraspinatus tendinosis. 2. Bursal surface partial-thickness tear of the posterior supraspinatus and anterior infraspinatus. 3. Anterior and superior labral tears. 4. Tenosynovitis of the long head of the biceps tendon. 5. Mild acromioclavicular joint arthropathy. 6. Chronic appearing inferior glenohumeral ligament injury at its attachment to the humerus. [facility], , 08/18/2024 7:21 PM
== END | disposition home or self-care (01) ==
LOC: RADMRIMAIN 18:46
PROVIDERS: ATTEND Orthopaedic Surgery
DX: M67.813 Other specified disorders of tendon, right shoulder (principal); M75.111 Incomplete rotator cuff tear or rupture of right shoulder, not specified as traumatic; M65.911 Unspecified synovitis and tenosynovitis, right shoulder; M19.011 Primary osteoarthritis, right shoulder

== ENCOUNTER 2024-09-23 08:54 | Day surgery (SDC) | payer OTHER ==
--- NOTE | 2024-09-22 15:46 | HP ---
HISTORY AND PHYSICAL Surgery is scheduled for 09/23/2024. HISTORY OF PRESENT ILLNESS: Luigi Leon is a 49-year-old patient, seen with progressive right shoulder pain. Options for treatment were discussed with him. He elected to proceed with shoulder arthroscopy. Consent regarding procedure obtained. PAST MEDICAL HISTORY: Mok-[id number]-[id number] diabetes, hypertension, gastroesophageal reflux disease. PAST SURGICAL HISTORY: Noncontributory. MEDICATIONS: 1. Hydrochlorothiazide. 2. Jardiance. 3. Losartan. 4. NovoLog insulin. 5. Omeprazole. 6. Simvastatin. ALLERGIES: Butternut and shellfish. SOCIAL HISTORY: He smokes cigarettes. PHYSICAL EVALUATION OF THE RIGHT SHOULDER: Flexion is 100 degrees. Abduction is 90 degrees. External rotation is 30 degrees along with weakness. He is tender along the anterolateral acromion and rotator cuff insertion. Impingement is positive at 90 degrees. He has a positive anterior apprehension sign and a positive cross-body adduction sign. Drop-arm sign is positive. Distal neurovascular exam is intact. IMAGING STUDIES: Right shoulder radiographs revealed type 2 acromion, acromioclavicular joint osteoarthritis and cystic changes of the tuberosity. MRI of the right shoulder revealed rotator cuff tendon tear, labral tear, and bicipital tendinitis. IMPRESSION: 1. Right shoulder impingement with rotator cuff tear. 2. Right shoulder labral tear. 3. Right shoulder bicipital tendinitis. 4. Insulin-dependent diabetes. 5. Hypertension. PLAN: Right shoulder arthroscopy with subacromial decompression, rotator cuff repair, biceps tenodesis, and debridement of labral tear. MMODL / IJN: [id number] /
[~2024-09-23 08:54] MED LIST: ACETAMINOPHEN TAB 500 MG TAB PO PRN; HYDROmorphone 0.5 MG/0.5 ML SYRINGE IVP PRN; LIDOCAINE 1% (10MG/ML) FOR IV START INTRADERMA PRN; TRANEXAMIC 1,000 MG/100ML-NACL 1,000 MG in SALINE 1 100ML.BAG IVPB PRN; fentaNYL (PF) 50 MCG/ML 2 ML AMP IVP PRN
[2024-09-23] MEDS: IV FLUID CONTINUATION 1,000 ML IV ONE (09:59)
[2024-09-23] MEDS: LACTATED RINGERS 1,000 ML IV SCH (10:02)
[2024-09-23 10:10] LABS: Glucose,Whole Blood 120 mg/dL (70-110)
[2024-09-23] MEDS: MELOXICAM 7.5 MG TAB PO PRN (10:18)
[2024-09-23] MEDS: DEXAMETHASONE SOD PHOSPHATE 4 MG/ML 1 ML VIAL IV ONE (10:18)
[2024-09-23] MEDS: ONDANSETRON 4 MG/2 ML VIAL IVP ONE (10:19)
[2024-09-23] MEDS: MIDAZOLAM 2 MG/2 ML VIAL IV PRN (10:22)
--- NOTE | 2024-09-23 11:13 | P.ANPRN ---
Procedure Note - Anesthesia - Nerve Block Performed Right Interscalene Single Time Out Performed: Yes Date of Procedure: 09/23/24 Procedure Start Time: Procedure Stop Time: Location of Patient: PreOp Indication: Acute Post-Operative Pain, Requested by Surgeon Sedation Type: Sedate with meaningful contact maintained Preparation: Sterile Prep Position: Supine Needle Types: Pajunk Needle Gauge: 21 Ultrasound used to visualize needle placement: Yes Ultrasound used to observe medication spread: Yes Injectate: 0.5% Ropivacaine (see comment for volume) (30 mL +4 mg of dexamethasone) Blood Aspirated: No Pain Paresthesia on Injection Noted: No Resistance on Injection: Normal Image Stored and Saved: Yes Events: Uneventful and Well Tolerated
[2024-09-23] MEDS ORDERED: LIDOCAINE 1% INJ 10MG/ML (20 ML MDV) ONE (11:46)
[2024-09-23] MEDS ORDERED: DEXAMETHASONE SOD PHOSPHATE 4 MG/ML 1 ML VIAL ONE (11:46)
[2024-09-23] MEDS ORDERED: fentaNYL (PF) 50 MCG/ML 2 ML AMP ONE (11:46)
[2024-09-23] MEDS ORDERED: SUCCINYLCHOLINE CHLORIDE 200 MG/10 ML VIAL IV ONE (11:46)
[2024-09-23] MEDS ORDERED: PROPOFOL 10 MG/ML 20 ML VIAL IV ONE (11:46)
[2024-09-23] MEDS ORDERED: ROPIVACAINE 5 MG/ML 30 ML VIAL ONE (11:46)
[2024-09-23] MEDS: ceFAZolin 2 GM in DEXTROSE 5% IN WATER 50 ML IVPB PRN (11:48)
[2024-09-23 13:32] VITALS: TEMP 97.4
--- NOTE | 2024-09-23 13:33 | P.OP ---
Date of Procedure: 09/23/24 Preoperative Diagnosis: Right shoulder impingement Postoperative Diagnosis: 1. Right shoulder rotator cuff tear 2. Right shoulder impingement 3. Right shoulder bicipital tendinitis 4. Right shoulder acromioclavicular joint osteoarthritis 5. Right shoulder superficial superior labral tear Procedure(s) Performed: 1. Right shoulder arthroscopic rotator cuff repair 2. Right shoulder arthroscopic subacromial decompression 3. Right shoulder arthroscopic biceps tenodesis 4. Right shoulder arthroscopic Opal procedure 5. Right shoulder arthroscopic debridement labral tear Anesthesia: GETA, regional (Interscalene block) Surgeon: Harish Marie Meatcutter #1: Mark Mccormack Estimated Blood Loss (ml): 11 Pathology: none sent Condition: stable Disposition: PACU Indications for Procedure: 49-year-old gentleman seen with progressive right shoulder pain. After having treatment options discussed, he elected to proceed with arthroscopy. Operative Findings: See description of procedure Description of Procedure: Patient underwent an interscalene block by department of anesthesia. The patient was then taken to the operative suite. The patient underwent a general anesthetic by the department of anesthesia. The patient was placed into a lateral position and secured. There was appropriate padding of the bony prominence. Right shoulder was then prepped and draped in normal sterile orthopedic fashion. We placed the extremity in 10 pounds of longitudinal traction. A posterior incision was now made for a posterior working portal site. The trocar and cannula were inserted into the glenohumeral joint. Arthroscopy was initiated. Spinal needle was now inserted anteriorly, to ascertain the anterior working portal site. An incision was now made in that area, a trocar was inserted followed by a probe. There was hyperemia of the long head biceps tendon consistent with chronic tendinitis. There was some superficial tearing of the superior labrum. There was no significant chondromalacia present. I used a motorized shaver and debrided out the superficial labral tear getting on the stable labral tissue. I now placed a cannula through the anterior portal site. I now passed a loop and tack stitch to the biceps tendon and release it from the superior labral anchor. With the assistance of Gigi donato at the interval for insertion of an anchor. I now passed the suture limb through the eyelet of an Arthrex 4.75 swivel lock anchor. I placed the anchor into the prepunch hole. I held in position while Gigi FLETCHER tensioned the suture and deployed the anchor with good fixation noted. The residual suture limb was now clipped. We had a stable appearing biceps tenodesis. Instruments were now removed from the glenohumeral joint. Utilizing the posterior working portal site, the trocar and cannula were inserted into the subacromial space. Arthroscopy initiated. I made an incision 2 fingerbreadths lateral to the acromion. I introduced my trocar followed by my ArthroCare ablator. I now began ablating thick subacromial bursal tissue, which exposed the undersurface of the anterior acromion. There was diminished subacromial space. There was a very prominent anterior acromion. A motorized bur was introduced and a subacromial decompression was performed. I also excised some osteophytes off the inferior aspect of the distal clavicle. The AC joint was visualized and noted to be fairly arthritic. The motorized bur was introduced in the anterior portal site and a Opal procedure was performed without difficulty, decompressing the AC joint nicely. I turned my attention to the rotator cuff. There was a 1.5 cm rotator cuff tear along the posterior aspect of the distal supraspinatus. I debrided the margins getting down to stable tendon tissue. I abraded the footprint with a motorized bur. With the assistance of Gigi FLETCHER passed 3 everted mattress sutures through good bites of rotator cuff tendon. I now partial at the footprint area for insertion of an anchor. All 4 limbs of suture were passed through the eyelet of an Arthrex 4.75 swivel lock anchor. I placed the eyelet into the prepunched hole and held that in position while Gigi FLETCHER tensioned all 6 limbs of suture and deployed the anchor with good fixation.. All residual suture limbs were now clipped. We had good compression of the tendon along the entire footprint. Instruments now removed from the portal sites. All portal sites were approximated with nylon suture. Sterile dressings were applied followed by a shoulder immobilizer. Mark FLETCHER assisted in all aspects of this case. The patient was awakened, transferred to a bed, and taken to recovery in stable condition.
[2024-09-23 14:42] VITALS: BP 132/83; PULSE 75; RESP 14
== END 2024-09-23 15:09 | disposition home or self-care (01) ==
LOC: OR 08:54
PROVIDERS: ATTEND Orthopaedic Surgery
DX: M75.101 Unspecified rotator cuff tear or rupture of right shoulder, not specified as traumatic (principal); M75.41 Impingement syndrome of right shoulder; M75.21 Bicipital tendinitis, right shoulder; G89.18 Other acute postprocedural pain; M25.811 Other specified joint disorders, right shoulder; M19.011 Primary osteoarthritis, right shoulder; S43.431A Superior glenoid labrum lesion of right shoulder, initial encounter; E11.9 Type 2 diabetes mellitus without complications; I10 Essential (primary) hypertension; Z79.84 Long term (current) use of oral hypoglycemic drugs; Z79.4 Long term (current) use of insulin; Z88.5 Allergy status to narcotic agent; F17.210 Nicotine dependence, cigarettes, uncomplicated
CPT/HCPCS: 29826; 29827; 29828; 64415; 29824; J2250; J1100; J0690; J2405